=== PATIENT | female | born 1935 | race Caucasian/White ===

== ENCOUNTER 2017-02-15 12:56 | Emergency (ER) | payer MEDICARE, OTHER ==
[2017-02-15 12:56] VITALS: BMI 21.9
[2017-02-15 13:10] VITALS: TEMP 97.6
[2017-02-15] MEDS ORDERED: Sodium Chloride 0.9% 500 ML IV ONE ×2 (13:20→14:24)
[2017-02-15 14:18] LABS: BASO % 0.7 % (0.0-2.0); EOS # 0.1 K/uL (0.0-0.7); EOS % 1.8 % (0.0-4.0); LYMPH # 1.4 K/uL (1.0-4.3); LYMPH % 23.8 % (20.0-40.0); MEAN CELL VOLUME 81.1 fL (81.0-99.0); MEAN CORPUSCULAR HEMOGLOBIN 25.5 pg (27.0-31.0); MEAN CORPUSCULAR HGB CONC 31.5 g/dL (33.0-37.0); MEAN PLATELET VOLUME 9.5 fL (7.2-11.7); MONO # 0.4 K/uL (0.0-0.8); MONO % 7.3 % (0.0-10.0); NRBC % 0.1 % (0.0-2.0); RED CELL DISTRIBUTION WIDTH 13.5 % (11.5-14.5); WHITE BLOOD COUNT 5.8 K/uL (4.8-10.8)
[2017-02-15 14:18] LABS: RBC URINE 14 /hpf (0-3); URINE BACTERIA OCC (<OCC); URINE BILIRUBIN NEGATIVE (NEGATIVE); URINE BLOOD 2+ (NEGATIVE); URINE COLOR Yellow (YELLOW); URINE GLUCOSE (UA) 3+ mg/dL (Normal); URINE KETONE NEGATIVE (NEGATIVE); URINE LEUKOCYTE ESTERASE 1+ Leu/uL (Negative); URINE PROTEIN NEGATIVE (NEGATIVE); URINE UROBILINOGEN NORMAL mg/dL (0.2-1.0); WBC URINE 16 /hpf (0-5)
[2017-02-15 14:35] LABS: CHLORIDE 99 mmol/L (98-107)
[2017-02-15 14:36] LABS: POTASSIUM 3.9 mmol/L (3.6-5.2); SODIUM 140 mmol/L (132-148)
[2017-02-15 14:38] LABS: ALB/GLOB RATIO 1.4 (1.0-2.1); ALKALINE PHOSPHATASE 61 U/L (38-126); AST/SGOT 25 U/L (14-36); BILIRUBIN,TOTAL 0.4 mg/dL (0.2-1.3); BLOOD UREA NITROGEN 15 mg/dL (7-17); CARBON DIOXIDE 25 mmol/L (22-30); GFR AFRICAN-AMERICAN > 60; TOTAL PROTEIN 7.7 g/dL (6.3-8.3)
[2017-02-15 14:39] LABS: ALT/SGPT 22 U/L (9-52); CALCIUM 9.2 mg/dl (8.6-10.4); GLUCOSE,RANDOM 221 mg/dL (65-105); MAGNESIUM 2.1 mg/dL (1.6-2.3)
[2017-02-15] MEDS ORDERED: Tmp-Smz 800 mg-160 mg DS Tab PO STA (15:17)
[2017-02-15 15:20] VITALS: BP 161/60; PULSE 72; RESP 13
[2017-02-15 15:21] VITALS: O2SAT 99
--- NOTE | 2017-02-15 15:21 | C.PDOC ---
History Of Present Illness Pt and family state that she has been feeling a little malaised for the past 3 days. They state that she usually feels like this when she gets a urine infection. Time Seen by Provider: 02/15/17 13:08 Chief Complaint (Nursing): Medical Clearance History Per: Patient, Family Onset/Duration Of Symptoms: Days (3) Current Symptoms Are (Timing): Still Present Severity: Moderate Additional History Per: Prior Records Past Medical History Reviewed: Historical Data, Nursing Documentation, Vital Signs Vital Signs: Last Vital Signs Temp 97.6 F 02/15/17 13:09 Pulse 72 02/15/17 15:19 Resp 13 02/15/17 15:19 BP 161/60 H 02/15/17 15:19 Pulse Ox 99 02/15/17 15:23 - Medical History PMH: Alzheimer's Disease, Arthritis, CAD, COPD, CVA (affecting left side of body ), Dementia, Depression, Diabetes, HTN, Hypercholesterolemia, Hyperlipidemia, Mitral Valve Prolapse Surgical History: Coronary Stent (x3) Comment Only: Pacemaker (.) - [facility] Procedures CENTRAL VENOUS CATHETER PLACEMENT WITH GUIDANCE (07/16/15) CORONAR ARTERIOGR-2 CATH (05/30/14) ESOPHAGOGASTRODUODENOSCOPY [EGD] W/CLOSED BIOPSY (03/28/13) LEFT HEART CARDIAC CATH (05/30/14) LT HEART ANGIOCARDIOGRAM (05/30/14) Family History: States: Unknown Family Hx - Social History Hx Tobacco Use: No Hx Alcohol Use: No Hx Substance Use: No - Immunization History Hx Tetanus Toxoid Vaccination: No Hx Influenza Vaccination: No Hx Pneumococcal Vaccination: No Review Of Systems Except As Marked, All Systems Reviewed And Found Negative. Constitutional: Positive for: Malaise. Negative for: Fever, Chills Cardiovascular: Negative for: Chest Pain Respiratory: Negative for: Shortness of Breath, Hemoptysis Gastrointestinal: Positive for: Abdominal Pain (suprapubic). Negative for: Vomiting, Diarrhea Genitourinary: Positive for: Dysuria Musculoskeletal: Negative for: Neck Pain, Back Pain Skin: Negative for: Rash Neurological: Negative for: Weakness (no new weakness), Numbness (no new numbness), Seizures, Altered Mental Status, Headache Physical Exam - Physical Exam Appears: No Acute Distress, Chronically Ill Skin: Normal Color, Warm, Dry Head: Atraumatic Eye(s): bilateral: PERRL Oral Mucosa: Moist Neck: Normal ROM, Supple Cardiovascular: Rhythm Regular Respiratory: Normal Breath Sounds, No Accessory Muscle Use Gastrointestinal/Abdominal: Soft, Tenderness (mild suprapubic), No Guarding, No Rebound Back: No CVA Tenderness Extremity: Other (Contracted on left side) Neurological/Psych: No Normal Motor (weak/contracted on left side due to old CVA ), Other (Awake and alert) ED Course And Treatment - Laboratory Results Result Diagrams: 02/15/17 14:12 02/15/17 14:12 Interpretation Of Abnormal: Probable UTI. Urine C&S sent. ECG: Interpreted By Me, Viewed By Me ECG Rhythm: Sinus Rhythm, Nonspecific Changes ECG Interpretation: No Changes From Prior Rate From EC O2 Sat by Pulse Oximetry: 99 Pulse Ox Interpretation: Normal - Radiology CXR: Interpreted by Me, Viewed By Me CXR Interpretation: Yes: No Acute Disease Progress Note: Pt and family feel comfortable going home. Reassessment Condition: Improved Progress - Interventions Interventions:: Observation, Intravenous fluid - Medications Administered Oral: Other (Abx) - Data Reviewed Data Reviewed: Lab, Diagnostic imaging, EKG, Old records - Patient Status Patient status: Mostly improved - Continuity of Care Discussed patient case with:: Patient, Family-HIPPA compliant, ED Nurse - Patient Plan Patient Plan: Discharge, F/U with PCP, Continue present meds Medical Decision Making Medical Decision Making: Pt's previous positive urine culture is sensitive to Bactrim. Disposition Counseled Patient/Family Regarding: Studies Performed, Diagnosis, Need For Followup, Rx Given - Disposition Disposition: HOME/ ROUTINE Disposition Time: 15:25 Condition: STABLE Additional Instructions: Drink plenty of fluids. Follow up with your doctor this week. Return to the ER if you develop fever, chills, vomiting, worsening of symptoms or if you have any other concerns. Prescriptions: Sulfamethoxazole/Trimethoprim [Bactrim DS 800 mg-160 mg] 1 tab PO BID #14 tab Instructions: Urinary Tract Infection in Women (ED) - Clinical Impression Clinical Impression: UTI (lower urinary tract infection)
[2017-02-15] MEDS ORDERED: Tmp-Smz 800 mg-160 mg DS Tab ONE (15:22)
--- NOTE | 2017-02-15 15:58 | RAD ---
PROCEDURE: CHEST RADIOGRAPH, 1 VIEW HISTORY: Dizzy COMPARISON: 08/19/2015 FINDINGS: LUNGS: No focal infiltrate or effusion. Chronic interstitial lung markings. Bilateral hilar prominence. Upper lobe granulomatous changes. Nodular density at the left lung base may represent prominent nipple shadow. Correlation with nipple marker may be helpful. PLEURA: No pneumothorax or pleural fluid seen. CARDIOVASCULAR: Calcification at the aortic knob. OSSEOUS STRUCTURES: No significant abnormalities. VISUALIZED UPPER ABDOMEN: Normal. OTHER FINDINGS: None. IMPRESSION: No focal infiltrate or effusion. Chronic interstitial lung markings. Bilateral hilar prominence. Upper lobe granulomatous changes. Nodular density at the left lung base may represent prominent nipple shadow. Correlation with nipple marker may be helpful.
--- NOTE | 2017-02-16 18:44 | CARD ---
APPROVED REPORT EKG Measurement Heart [id number] NM [id number] <Conclusion> Normal sinus rhythm ST & T wave abnormality, consider lateral ischemia/ LVH Abnormal ECG
== END 2017-02-15 15:59 | disposition home or self-care (01) ==
LOC: C.ER 12:56
DX: N39.0 Urinary tract infection, site not specified (principal); B96.20 Unspecified Escherichia coli [E. coli] as the cause of diseases classified elsewhere
CPT/HCPCS: 71010; 80053; 81001; 83735; 83880; 84484; 85025; 87086; 87181; 93005; 96360; 99285; J7040

== ENCOUNTER 2017-03-09 00:17 | Emergency (ER) | payer MEDICARE, OTHER ==
--- NOTE | 2017-03-09 00:23 | C.PDOC ---
History Of Present Illness A 81 year old female with a hx of Alzheimer, was brought in by her daughter c/o worsening confusion that has been occurring for the last couple of day. Daughter notes the patient was recently admitted for UTI and had experienced similar symptoms. Daughter reports abnormal smelling urine but denies vomiting, trauma, LOC, fever, drug use, or any other complaints. Time Seen by Provider: 03/09/17 00:22 History Per: Family (Daughter) History/Exam Limitations: Clinical Condition (Confusion) Onset/Duration Of Symptoms: Days Current Symptoms Are (Timing): Still Present Usual Baseline: Alert Confused Exacerbating Factor(s): denies: Fever, Trauma Severity: Mild Recent travel outside of the [place]: No Past Medical History Reviewed: Historical Data, Nursing Documentation, Vital Signs Vital Signs: Last Vital Signs Temp 98.1 F 03/09/17 00:46 Pulse 80 03/09/17 00:46 Resp 16 03/09/17 00:46 BP 171/76 H 03/09/17 00:46 Pulse Ox 98 03/09/17 02:51 - Medical History PMH: Alzheimer's Disease, Arthritis, CAD, COPD, CVA (affecting left side of body ), Dementia, Depression, Diabetes, HTN, Hypercholesterolemia, Hyperlipidemia, Mitral Valve Prolapse Denies: Chronic Kidney Disease Surgical History: Coronary Stent (x3) Comment Only: Pacemaker (.) - [facility] Procedures CENTRAL VENOUS CATHETER PLACEMENT WITH GUIDANCE (07/16/15) CORONAR ARTERIOGR-2 CATH (05/30/14) ESOPHAGOGASTRODUODENOSCOPY [EGD] W/CLOSED BIOPSY (03/28/13) LEFT HEART CARDIAC CATH (05/30/14) LT HEART ANGIOCARDIOGRAM (05/30/14) Family History: States: No Known Family Hx - Social History Hx Tobacco Use: No Hx Alcohol Use: No Hx Substance Use: No - Immunization History Hx Tetanus Toxoid Vaccination: No Hx Influenza Vaccination: No Hx Pneumococcal Vaccination: No Review Of Systems Review Of Systems: ROS cannot be obtained secondary to pt's inabilty to answer questions. (Due to confusion) Genitourinary: Positive for: Other (Abnormal smelling urine) Neurological: Positive for: Confusion Physical Exam - Physical Exam Appears: Non-toxic, No Acute Distress, Confused Skin: Warm, Dry Head: Normacephalic Eye(s): bilateral: Normal Inspection Oral Mucosa: Moist Neck: Supple Chest: Symmetrical Cardiovascular: Rhythm Regular Respiratory: No Rales, No Rhonchi, No Wheezing Gastrointestinal/Abdominal: Soft, No Tenderness, No Distention Back: Normal Inspection Extremity: Normal ROM Extremity: Bilateral: Atraumatic, Normal Color And Temperature, Normal ROM Neurological/Psych: No Oriented x3 (Oriented to place), No Other (No focal deficit) Gait: Unable To Assess ED Course And Treatment - Laboratory Results Result Diagrams: 03/09/17 01:22 03/09/17 01:22 O2 Sat by Pulse Oximetry: 98 (Room air) Pulse Ox Interpretation: Normal Progress Note: blood work, ua, ivf Reevaluation Time: 05:36 Reassessment Condition: Improved Disposition Counseled Patient/Family Regarding: Studies Performed, Diagnosis, Need For Followup - Disposition Referrals: Clint Silverman MD [Staff Provider] - Disposition: HOME/ ROUTINE Disposition Time: 00:22 Condition: FAIR Instructions: Dementia (GEN) - Clinical Impression Clinical Impression: Alzheimers disease - Scribe Statement The provider has reviewed the documentation as recorded by the Scribe Jeff vargas All medical record entries made by the Scribe were at my direction and personally dictated by me. I have reviewed the chart and agree that the record accurately reflects my personal performance of the history, physical exam, medical decision making, and the department course for this patient. I have also personally directed, reviewed, and agree with the discharge instructions and disposition.
[2017-03-09 00:27] VITALS: BMI 25.7
[2017-03-09] MEDS ORDERED: Sodium Chloride 0.9% 1,000 ML IV SCH (00:30)
[2017-03-09 00:51] VITALS: RESP 16; O2SAT 98
[2017-03-09 01:31] LABS: BASO % 0.3 % (0.0-2.0); EOS # 0.1 K/uL (0.0-0.7); EOS % 1.1 % (0.0-4.0); HEMATOCRIT 38.9 % (34.0-47.0); LYMPH # 1.6 K/uL (1.0-4.3); LYMPH % 24.6 % (20.0-40.0); MEAN CELL VOLUME 80.1 fL (81.0-99.0); MEAN CORPUSCULAR HEMOGLOBIN 25.9 pg (27.0-31.0); MEAN CORPUSCULAR HGB CONC 32.3 g/dL (33.0-37.0); MEAN PLATELET VOLUME 9.6 fL (7.2-11.7); MONO # 0.5 K/uL (0.0-0.8); MONO % 8.2 % (0.0-10.0); RED CELL DISTRIBUTION WIDTH 13.9 % (11.5-14.5); WHITE BLOOD COUNT 6.4 K/uL (4.8-10.8)
[2017-03-09 01:34] LABS: INR 1.1
[2017-03-09 01:46] LABS: ALB/GLOB RATIO 1.4 (1.0-2.1); ALKALINE PHOSPHATASE 73 U/L (38-126); ALT/SGPT 13 U/L (9-52); AST/SGOT 13 U/L (14-36); BILIRUBIN,TOTAL 0.6 mg/dL (0.2-1.3); BLOOD UREA NITROGEN 17 mg/dL (7-17); CALCIUM 8.9 mg/dl (8.6-10.4); CARBON DIOXIDE 24 mmol/L (22-30); CHLORIDE 102 mmol/L (98-107); GFR AFRICAN-AMERICAN > 60; GLUCOSE,RANDOM 241 mg/dL (65-105); POTASSIUM 3.7 mmol/L (3.6-5.2); SODIUM 142 mmol/L (132-148); TOTAL PROTEIN 7.6 g/dL (6.3-8.3)
[2017-03-09 02:10] LABS: RBC URINE 1 /hpf (0-3); URINE BILIRUBIN NEGATIVE (NEGATIVE); URINE BLOOD NEGATIVE (NEGATIVE); URINE COLOR Straw (YELLOW); URINE GLUCOSE (UA) 3+ mg/dL (Normal); URINE KETONE NEGATIVE (NEGATIVE); URINE LEUKOCYTE ESTERASE NEG Leu/uL (Negative); URINE PROTEIN NEGATIVE (NEGATIVE); URINE UROBILINOGEN NORMAL mg/dL (0.2-1.0); WBC URINE 1 /hpf (0-5)
[2017-03-09 02:14] LABS: VENOUS BLOOD GAS PCO2 44 mmHg (40-60)
--- NOTE | 2017-03-09 03:32 | CT ---
EXAM: CT Head Without Intravenous Contrast CLINICAL HISTORY: 81 years old, female; Signs and symptoms; Altered mental status/memory loss; Confusion or disorientation; Additional info: Change ms TECHNIQUE: Axial computed tomography images of the head/brain without intravenous contrast. This CT exam was performed using one or more of the following dose reduction techniques: automated exposure control, adjustment of the mA and/or kV according to patient size, and/or use of iterative reconstruction technique. COMPARISON: CT - HEAD W/O CONTRAST 12/16/2015 8:32:26 PM FINDINGS: Brain: [id number] atrophy. No intracranial hemorrhage. No mass. Several scattered foci of decreased attenuation within periventricular/subcortical white matter. Chronic lacunar infarcts within basal ganglia. Probable chronic lacunar infarct within coty. No definite edema. Ventricles: No hydrocephalus. Bones/joints: No acute fracture. Soft tissues: Unremarkable. Vasculature: Atherosclerotic disease of intracranial arteries. Sinuses: No acute sinusitis. Mastoid air cells: No mastoid effusion. Orbits: Unremarkable as visualized. IMPRESSION: 1. Nonspecific white matter changes. Acute infarction may be CT occult within first 24 hours. If a focal deficit persists, consider followup CT or MRI for further evaluation. 2. Incidental/non-acute findings are described above.
[2017-03-09 05:57] VITALS: BP 141/87; PULSE 79; TEMP 98.4
--- NOTE | 2017-03-09 09:04 | RAD ---
PROCEDURE: CHEST RADIOGRAPH, 1 VIEW HISTORY: Shortness of breath COMPARISON: 02/15/2017 FINDINGS: LUNGS: Biapical pleural thickening with upper lobe granulomatous changes. Patchy left basilar airspace opacity with trace left pleural effusion. PLEURA: As above. CARDIOVASCULAR: Calcification at the aortic knob. Heart size within normal limits. OSSEOUS STRUCTURES: Overlying hand limits evaluation of the left proximal humerus. VISUALIZED UPPER ABDOMEN: Normal. OTHER FINDINGS: None. IMPRESSION: Biapical pleural thickening with upper lobe granulomatous changes. Patchy left basilar airspace opacity with trace left pleural effusion.
== END 2017-03-09 05:56 | disposition home or self-care (01) ==
LOC: C.ER 00:17
DX: G30.9 Alzheimer's disease, unspecified (principal); F02.80 Dementia in other diseases classified elsewhere, unspecified severity, without behavioral disturbance, psychotic disturbance, mood disturbance, and anxiety

== ENCOUNTER 2018-02-11 10:23 | Observation (INO) | payer MEDICARE, OTHER ==
[2018-02-11 10:23] VITALS: BMI 25.7
[2018-02-11 10:34] VITALS: RESP 20
--- NOTE | 2018-02-11 11:17 | C.PDOC ---
History Of Present Illness 82 y/o F c PMHx HTN, HLD, DM, CVA with L sided deficit, cardiac stent p/w hypoglycemia this morning. Patient was noted by homemaker to be tremulous, cold , and drowsy. Fingerstick was found to be 30s, patient was given banana and peanut butter and symptoms resolved. Patient was given her normal DM medication (insulin last night) and had a snack afterwards. Family is unsure why she became hypoglycemic. They deny any recent fever, cough, dysuria, vomiting. Time Seen by Provider: 02/11/18 10:49 Chief Complaint (Nursing): Altered Mental Status Past Medical History Vital Signs: Last Vital Signs Temp 97.4 F L 02/11/18 10:33 Pulse 88 02/11/18 10:33 Resp 20 02/11/18 10:33 BP 194/78 H 02/11/18 10:33 Pulse Ox 96 02/11/18 11:46 - Medical History PMH: Alzheimer's Disease, Arthritis, CAD, COPD, CVA (affecting left side of body ), Dementia, Depression, Diabetes, HTN, Hypercholesterolemia, Hyperlipidemia, Mitral Valve Prolapse Denies: Chronic Kidney Disease Surgical History: Coronary Stent (x3) Comment Only: Pacemaker (.) - [facility] Procedures CENTRAL VENOUS CATHETER PLACEMENT WITH GUIDANCE (07/16/15) CORONAR ARTERIOGR-2 CATH (05/30/14) ESOPHAGOGASTRODUODENOSCOPY [EGD] W/CLOSED BIOPSY (03/28/13) LEFT HEART CARDIAC CATH (05/30/14) LT HEART ANGIOCARDIOGRAM (05/30/14) Family History: States: Unknown Family Hx - Social History Hx Tobacco Use: No Hx Alcohol Use: No Hx Substance Use: No - Immunization History Hx Tetanus Toxoid Vaccination: No Hx Influenza Vaccination: No Hx Pneumococcal Vaccination: No Review Of Systems Except As Marked, All Systems Reviewed And Found Negative. Constitutional: Negative for: Fever Cardiovascular: Negative for: Chest Pain Physical Exam - Physical Exam Additional Physical Exam Comments: Gen: NAD Head: NC Eyes: PERRL ENT: MMM Neck: Supple Chest: No tenderness CV: Regular rate Lungs: CTA b/l Abd: Soft, NT Back: No CVA tenderness Skin: No rash Extremities: L arm contracture Neuro: Alert, oriented x 2, L sided paralysis ED Course And Treatment - Laboratory Results Result Diagrams: 02/11/18 11:21 02/11/18 11:21 O2 Sat by Pulse Oximetry: 96 Medical Decision Making Medical Decision Making: EKG NSR 80 bpm, no ST elevations, lateral T wave inversions, unchanged from previous CXR no acute disease. Patient with unexplained hypoglycemia, will keep for observation. Dr. Mckeon accepts to Medical service. Disposition Discussed With : Edgar Mckeon - Disposition Disposition: HOSPITALIZED Disposition Time: 12:11 Condition: FAIR Forms: [facility] (Belarusian) - Clinical Impression Clinical Impression: Hypoglycemia
[2018-02-11 11:26] LABS: BASO % 0.5 % (0.0-2.0); EOS % 0.7 % (0.0-4.0); HEMOGLOBIN 12.9 g/dL (11.0-16.0); LYMPH # 1.1 K/uL (1.0-4.3); LYMPH % 19.6 % (20.0-40.0); MEAN CELL VOLUME 81.1 fL (81.0-99.0); MEAN CORPUSCULAR HEMOGLOBIN 26.9 pg (27.0-31.0); MEAN CORPUSCULAR HGB CONC 33.1 g/dL (33.0-37.0); MEAN PLATELET VOLUME 9.3 fL (7.2-11.7); MONO # 0.3 K/uL (0.0-0.8); MONO % 5.5 % (0.0-10.0); NEUT # 4.3 K/uL (1.8-7.0); NEUT % 73.7 % (50.0-75.0); NRBC % 0.1 % (0.0-2.0); RBC 4.82 Mil/uL (3.80-5.20); RED CELL DISTRIBUTION WIDTH 14.1 % (11.5-14.5); WHITE BLOOD COUNT 5.8 K/uL (4.8-10.8)
[2018-02-11 11:36] LABS: PROTHROMBIN TIME 11.9 SECONDS (9.7-12.2)
[2018-02-11 11:43] LABS: ALB/GLOB RATIO 1.2 (1.0-2.1); ALBUMIN 4.4 g/dL (3.5-5.0); ALT/SGPT 14 U/L (9-52); AST/SGOT 27 U/L (14-36); BLOOD UREA NITROGEN 19 mg/dL (7-17); CALCIUM 9.3 mg/dl (8.6-10.4); GFR AFRICAN-AMERICAN > 60; GFR NON-AFRICAN AMERICAN > 60
[2018-02-11 12:07] LABS: URINE BACTERIA OCC (<OCC); URINE BILIRUBIN NEGATIVE (NEGATIVE); URINE BLOOD NEGATIVE (NEGATIVE); URINE CLARITY Hazy (Clear); URINE COLOR Yellow (YELLOW); URINE GLUCOSE (UA) 2+ mg/dL (Normal); URINE LEUKOCYTE ESTERASE TRACE Leu/uL (Negative); URINE PROTEIN 1+ mg/dL (NEGATIVE); URINE UROBILINOGEN NORMAL mg/dL (0.2-1.0)
--- NOTE | 2018-02-11 13:45 | RAD ---
HISTORY: Hypoglycemia COMPARISON: 03/09/2017. FINDINGS: LUNGS: The lungs are well inflated and clear. PLEURA: No significant pleural effusion identified, no pneumothorax apparent. CARDIOVASCULAR: The heart is normal in size. Atherosclerotic aortic arch calcifications are present. OSSEOUS STRUCTURES: Within normal limits for the patient's age. VISUALIZED UPPER ABDOMEN: Normal. OTHER FINDINGS: None. IMPRESSION: No active pulmonary disease.
--- NOTE | 2018-02-11 18:00 | CP.PCM.HP ---
Present on Admission - Present on Admission Any Indicators Present on Admission: No Past Patient History - Infectious Disease Hx of Infectious Diseases: None - Tetanus Immunizations Tetanus Immunization: Unknown - Past Medical History & Family History Past Medical History?: Yes - Past Social History Smoking Status: Never Smoked - CARDIAC Hx Cardiac Disorders: Yes Hx Hypercholesterolemia: Yes Hx Hypertension: Yes Hx Mitral Valve Prolapse: Yes Hx Pacemaker: (.) - PULMONARY Hx Chronic Obstructive Pulmonary Disease (COPD): Yes - NEUROLOGICAL Hx Alzheimer's Disease: Yes Hx Dementia: Yes - HEENT Hx HEENT Problems: No - RENAL Hx Chronic Kidney Disease: No - ENDOCRINE/METABOLIC Hx Diabetes Mellitus Type 2: Yes - HEMATOLOGICAL/ONCOLOGICAL Hx Blood Disorders: No - INTEGUMENTARY Hx Dermatological Problems: No - MUSCULOSKELETAL/RHEUMATOLOGICAL Hx Arthritis: Yes Hx Falls: Yes - GASTROINTESTINAL Hx Gastrointestinal Disorders: Yes Hx Gastroesophageal Reflux: Yes - GENITOURINARY/GYNECOLOGICAL Hx Genitourinary Disorders: Yes Hx Urinary Tract Infection: Yes - PSYCHIATRIC Hx Depression: Yes Hx Substance Use: No - SURGICAL HISTORY Hx Coronary Stent: Yes (x3) - ANESTHESIA Hx Anesthesia: Yes Hx Anesthesia Reactions: No Hx Malignant Hyperthermia: No Meds Allergies/Adverse Reactions: Allergies Allergy/AdvReac Type Severity Reaction Status Date / Time iodine Allergy RASH Verified 02/11/18 10:39 seafood Allergy Uncoded 02/11/18 10:39 Results - Vital Signs Recent Vital Signs: Last Vital Signs Temp 98.9 F 02/11/18 15:52 Pulse 64 02/11/18 15:52 Resp 20 02/11/18 15:52 BP 133/76 02/11/18 15:52 Pulse Ox 97 02/11/18 15:52 - Labs Result Diagrams: 02/11/18 11:21 02/11/18 11:21 Labs: Laboratory Results - last 24 hr 02/11/18 02/11/18 02/11/18 10:30 11:21 11:21 WBC 5.8 RBC 4.82 Hgb 12.9 Hct 39.1 MCV 81.1 MCH 26.9 L MCHC 33.1 RDW 14.1 Plt Count 248 MPV 9.3 Neut % (Auto) 73.7 Lymph % (Auto) 19.6 L [place] % (Auto) 5.5 Eos % (Auto) 0.7 Baso % (Auto) 0.5 Neut # (Auto) 4.3 Lymph # (Auto) 1.1 [place] # (Auto) 0.3 Eos # (Auto) 0.0 Baso # (Auto) 0.0 PT 11.9 INR 1.0 APTT 27 Sodium Potassium Chloride Carbon Dioxide Anion Gap BUN Creatinine Est GFR ( Amer) Est GFR (Non-Af Amer) POC Glucose (mg/dL) 160 H Random Glucose Calcium Total Bilirubin AST ALT Alkaline Phosphatase Troponin I Total Protein Albumin Globulin Albumin/Globulin Ratio Urine Color Urine Clarity Urine pH Ur Specific [place] Urine Protein Urine Glucose (UA) Urine Ketones Urine Blood Urine Nitrate Urine Bilirubin Urine Urobilinogen Ur Leukocyte Esterase Urine WBC (Auto) Urine RBC (Auto) Urine Bacteria 02/11/18 02/11/18 02/11/18 11:21 11:51 16:39 WBC RBC Hgb Hct MCV MCH MCHC RDW Plt Count MPV Neut % (Auto) Lymph % (Auto) [place] % (Auto) Eos % (Auto) Baso % (Auto) Neut # (Auto) Lymph # (Auto) [place] # (Auto) Eos # (Auto) Baso # (Auto) PT INR APTT Sodium 144 Potassium 4.4 Chloride 104 Carbon Dioxide 24 Anion Gap 20 BUN 19 H Creatinine 0.5 L Est GFR ( Amer) > 60 Est GFR (Non-Af Amer) > 60 POC Glucose (mg/dL) 203 H Random Glucose 196 H Calcium 9.3 Total Bilirubin 0.6 AST 27 ALT 14 Alkaline Phosphatase 64 Troponin I < 0.0120 Total Protein 8.0 Albumin 4.4 Globulin 3.6 Albumin/Globulin Ratio 1.2 Urine Color Yellow Urine Clarity Hazy Urine pH 6.0 Ur Specific [place] 1.011 Urine Protein 1+ H Urine Glucose (UA) 2+ H Urine Ketones Negative Urine Blood Negative Urine Nitrate Negative Urine Bilirubin Negative Urine Urobilinogen Normal Ur Leukocyte Esterase Trace Urine WBC (Auto) 4 Urine RBC (Auto) < 1 Urine Bacteria Occ H Assessment & Plan (1) Hypoglycemia Status: Acute (2) Abdominal pain Status: Acute (3) Alzheimers disease Status: Acute (4) CVA, old, dysphagia Status: Acute (5) CVA, old, hemiparesis Status: Acute (6) Chest discomfort Status: Acute (7) Chest pain Status: Acute (8) Contusion of hip, left Status: Acute (9) Dementia Status: Acute (10) Elbow abrasion Status: Acute (11) Fall Status: Acute (12) Fall from wheelchair Status: Acute (13) Head injury Status: Acute (14) Hematoma and contusion Status: Acute (15) Ischemic stroke Status: Acute (16) Leg pain Status: Acute (17) Nausea Status: Acute (18) Prophylactic measure Status: Acute (19) Rib pain Status: Acute (20) Scalp hematoma Status: Acute (21) Swelling of left hand Status: Acute (22) TIA (transient ischemic attack) Status: Acute (23) Torticollis Status: Acute (24) Transient ischemic attack Status: Acute (25) UTI (lower urinary tract infection) Status: Acute (26) Uncontrolled diabetes mellitus Status: Acute (27) Vomiting Status: Acute (28) Weakness generalized Status: Acute (29) Weakness of left side of body Status: Acute (30) CAD (coronary artery disease) Status: Chronic (31) Diabetes mellitus Status: Chronic (32) Hyperlipemia Status: Chronic (33) Hypertension Status: Chronic - Assessment and Plan (Free Text) Plan: Hold antidiabetic med endo consult prn encourage po diet Fingerstick 4 times daily Diet Continue aspirin losartan rosuvastatin heparin subcu DVT GI prophylaxis Monitor the fingerstick
[2018-02-12] MEDS ORDERED: Metoprolol Succinate 100 mg XL Tab PO SCH (10:00)
--- NOTE | 2018-02-12 11:55 | CP.PCM.PN ---
Subjective - Date & Time of Evaluation Date of Evaluation: 02/12/18 Time of Evaluation: 11:50 - Subjective Subjective: PT SEEN AND IN NAD. PT STATES SHE FEEL FINE; DENIES CP, SOB, ABD PAIN, N/V. CLEARED FOR D/C HOME TODAY. I DISCUSSED THE D/C PLAN WITH PT'S DAUGHTER, LYLY YOUNG, AND SHE IS AWARE AND IN AGREEMENT WITH THE D/C PLAN. I CLARIFIED PT'S EVENING INSULIN WITH HER WELL; PT TAKE LEVEMIR 25 UNITS AT BEDTIME. I SPOKE WITH PT'S [facility]ULT [facility] ([employer]) AND THE RN CONFIRMED HER DAILY INSULIN REGIMEN (NOVOLOG WITH SLIDING SCALE). PER ADULT DAY CARE NURSE, PT'S DAUGHTER TAKES CARE OF THE PT AND MANAGES HER SUGAR WELL. THIS IS THE FIRST HYPOGLYCEMIC EPISODE PER HER. NO NEW RX GIVEN TODAY FOR D/C. BEDTIME SNACK RECOMMENDED Q HS. NO FURTHER ORDERS. SW TO ARRANGE TRANSPORTATION HOME THIS AFTERNOON. SEE BELOW FOR D/C PLAN: - SEGUIMIENTO CON HADDAD DOCTOR PRIMARIO, DR. CANTU, EN LA OFICINA DENTRO DE 5- 7 [address] DE [place] --- LLAME A LA OFICINA PARA HACER HADDAD APTO. -CONTINUE LOS MEDICAMENTOS DE HADDAD CASA SUSAN HABITUALMENTE. RECUERDA, SI TE EST DANDO INSULINA, NECESITAS COMER. -Tiene un aperitivo antes de haddad INSULINA "LEVEMIR". -NO HAY NUEVAS RECETAS DADAS HOY. -CONTINUE LOS SERVICIOS DE HOMEMAKER Y EL CUIDADO DE LOS ADULTOS SUSAN DIVERTIDO. -PARA MS PREGUNTAS DE HADDAD HOSPITALIZACIN, CONTACTE CON EL DR. MARY HAYES. -FOLLOW UP WITH YOUR PRIMARY DOCTOR, DR. CANTU, IN THE OFFICE WITHIN 5-7 DAYS OF DISCHARGE---CALL THE OFFICE TO MAKE YOUR APPT. -CONTINUE YOUR HOME MEDICATIONS USUAL. REMEMBER, IF YOU ARE BEING GIVE INSULIN, YOU NEED TO EAT. -HAVE A BEDTIME SNACK PRIOR TO YOUR "LEVEMIR" INSULIN. -NO NEW PRESCRIPTIONS GIVEN TODAY. -CONTINUE HOMEMAKER SERVICES AND ADULT DAY CARE USUAL. -FOR FURTHER QUESTIONS OF YOUR HOSPITALIZATION, CONTACT DR. Rick COATES'S OFFICE. Objective - Vital Signs/Intake and Output Vital Signs (last 24 hours): Temp Pulse Resp BP Pulse Ox 97.8 F 66 20 121/62 97 02/12/18 07:44 02/12/18 07:44 02/12/18 07:44 02/12/18 07:44 02/12/18 07:44 Intake and Output: 02/12/18 02/12/18 06:59 18:59 Intake Total 150 Balance 150 - Medications Medications: Current Medications Amlodipine Besylate (Norvasc) 10 mg PO DAILY [facility] Last Admin: 02/12/18 11:34 Dose: 10 mg Aspirin (Aspirin Chewable) 81 mg PO DAILY [facility] Last Admin: 02/12/18 11:34 Dose: 81 mg Clopidogrel Bisulfate (Plavix) 75 mg PO DAILY [facility] Last Admin: 02/12/18 11:34 Dose: 75 mg Docusate Sodium (Colace) 100 mg PO BID [facility] Last Admin: 02/12/18 11:34 Dose: 100 mg Famotidine (Pepcid) 20 mg PO BID [facility] Last Admin: 02/12/18 11:34 Dose: 20 mg Heparin Sodium (Porcine) (Heparin) 5,000 units SC Q12 [facility] Last Admin: 02/12/18 11:34 Dose: 5,000 units Losartan Potassium (Cozaar) 100 mg PO DAILY [facility] Last Admin: 02/12/18 11:34 Dose: 100 mg Metoprolol Succinate (Toprol Xl) 100 mg PO QAM [facility] Last Admin: 02/12/18 11:34 Dose: 100 mg Rosuvastatin Calcium (Crestor) 10 mg PO QPM [facility] Last Admin: 02/11/18 17:39 Dose: 10 mg Zolpidem Tartrate (Ambien) 10 mg PO HS PRN PRN Reason: Insomnia - Labs Labs: 02/11/18 11:21 02/11/18 11:21 PT 11.9 SECONDS (9.7-12.2) 02/11/18 11:21 INR 1.0 02/11/18 11:21 APTT 27 SECONDS (21-34) 02/11/18 11:21
[2018-02-12 15:48] VITALS: BP 169/76; PULSE 64; TEMP 98.4; O2SAT 96
--- NOTE | 2018-02-12 17:11 | CP.PCM.PN ---
Subjective - Date & Time of Evaluation Date of Evaluation: 02/12/18 Time of Evaluation: 08:40 - Subjective Subjective: clinically same Objective - Vital Signs/Intake and Output Vital Signs (last 24 hours): Temp Pulse Resp BP Pulse Ox 98.4 F 64 20 169/76 H 96 02/12/18 15:00 02/12/18 15:00 02/12/18 15:00 02/12/18 15:00 02/12/18 15:00 Intake and Output: 02/12/18 02/12/18 06:59 18:59 Intake Total 150 Balance 150 - Medications Medications: Current Medications Amlodipine Besylate (Norvasc) 10 mg PO DAILY [facility] Last Admin: 02/12/18 11:34 Dose: 10 mg Aspirin (Aspirin Chewable) 81 mg PO DAILY [facility] Last Admin: 02/12/18 11:34 Dose: 81 mg Clopidogrel Bisulfate (Plavix) 75 mg PO DAILY [facility] Last Admin: 02/12/18 11:34 Dose: 75 mg Docusate Sodium (Colace) 100 mg PO BID [facility] Last Admin: 02/12/18 11:34 Dose: 100 mg Famotidine (Pepcid) 20 mg PO BID [facility] Last Admin: 02/12/18 11:34 Dose: 20 mg Heparin Sodium (Porcine) (Heparin) 5,000 units SC Q12 [facility] Last Admin: 02/12/18 11:34 Dose: 5,000 units Losartan Potassium (Cozaar) 100 mg PO DAILY [facility] Last Admin: 02/12/18 11:34 Dose: 100 mg Metoprolol Succinate (Toprol Xl) 100 mg PO QAM [facility] Last Admin: 02/12/18 11:34 Dose: 100 mg Rosuvastatin Calcium (Crestor) 10 mg PO QPM [facility] Last Admin: 02/11/18 17:39 Dose: 10 mg Zolpidem Tartrate (Ambien) 10 mg PO HS PRN PRN Reason: Insomnia - Labs Labs: 02/11/18 11:21 02/11/18 11:21 PT 11.9 SECONDS (9.7-12.2) 02/11/18 11:21 INR 1.0 02/11/18 11:21 APTT 27 SECONDS (21-34) 02/11/18 11:21 - Constitutional Appears: Well - Head Exam Head Exam: ATRAUMATIC, NORMAL INSPECTION, NORMOCEPHALIC - Eye Exam Eye Exam: EOMI, Normal appearance, PERRL Pupil Exam: NORMAL ACCOMODATION, PERRL - ENT Exam ENT Exam: Mucous Membranes Moist, Normal Exam - Neck Exam Neck Exam: Full ROM, Normal Inspection. absent: Lymphadenopathy - Respiratory Exam Respiratory Exam: Decreased Breath Sounds - Cardiovascular Exam Cardiovascular Exam: REGULAR RHYTHM, +S1, +S2 - GI/Abdominal Exam GI & Abdominal Exam: Soft, Diminished Bowel Sounds - Rectal Exam Rectal Exam: Deferred Assessment and Plan (1) Hypoglycemia Status: Acute (2) Abdominal pain Status: Acute (3) Alzheimers disease Status: Acute (4) CVA, old, dysphagia Status: Acute (5) CVA, old, hemiparesis Status: Acute (6) Chest discomfort Status: Acute (7) Chest pain Status: Acute (8) Contusion of hip, left Status: Acute (9) Dementia Status: Acute (10) Elbow abrasion Status: Acute (11) Fall Status: Acute (12) Fall from wheelchair Status: Acute (13) Head injury Status: Acute (14) Hematoma and contusion Status: Acute (15) Ischemic stroke Status: Acute (16) Leg pain Status: Acute (17) Nausea Status: Acute (18) Prophylactic measure Status: Acute (19) Rib pain Status: Acute (20) Scalp hematoma Status: Acute (21) Swelling of left hand Status: Acute (22) TIA (transient ischemic attack) Status: Acute (23) Torticollis Status: Acute (24) Transient ischemic attack Status: Acute (25) UTI (lower urinary tract infection) Status: Acute (26) Uncontrolled diabetes mellitus Status: Acute (27) Vomiting Status: Acute (28) Weakness generalized Status: Acute (29) Weakness of left side of body Status: Acute (30) CAD (coronary artery disease) Status: Chronic (31) Diabetes mellitus Status: Chronic (32) Hyperlipemia Status: Chronic (33) Hypertension Status: Chronic
--- NOTE | 2018-02-12 22:36 | CARD ---
APPROVED REPORT EKG Measurement Heart [id number] <Conclusion> Normal sinus rhythm with sinus arrhythmia Moderate voltage criteria for LVH, may be normal variant ST & T wave abnormality, consider anterolateral ischemia Prolonged QT Abnormal ECG
== END 2018-02-12 17:44 | disposition home or self-care (01) ==
LOC: C.ER 10:23 → C.9E 12:09 → C.3T 13:30
PROVIDERS: ADMIT Internal Medicine Nephrology; ATTEND Internal Medicine Nephrology
DX: E11.649 Type 2 diabetes mellitus with hypoglycemia without coma (principal); I10 Essential (primary) hypertension; I69.359 Hemiplegia and hemiparesis following cerebral infarction affecting unspecified side; Z79.4 Long term (current) use of insulin; G30.9 Alzheimer's disease, unspecified; F02.80 Dementia in other diseases classified elsewhere, unspecified severity, without behavioral disturbance, psychotic disturbance, mood disturbance, and anxiety; M19.90 Unspecified osteoarthritis, unspecified site; J44.9 Chronic obstructive pulmonary disease, unspecified; F32.9 Major depressive disorder, single episode, unspecified; E78.00 Pure hypercholesterolemia, unspecified; I34.1 Nonrheumatic mitral (valve) prolapse; Z95.5 Presence of coronary angioplasty implant and graft; Z95.0 Presence of cardiac pacemaker; K21.9 Gastro-esophageal reflux disease without esophagitis; Z87.440 Personal history of urinary (tract) infections; Z91.013 Allergy to seafood; Z88.8 Allergy status to other drugs, medicaments and biological substances; I69.391 Dysphagia following cerebral infarction; R13.10 Dysphagia, unspecified; S70.02XA Contusion of left hip, initial encounter; S50.319A Abrasion of unspecified elbow, initial encounter; W05.0XXA Fall from non-moving wheelchair, initial encounter; M79.606 Pain in leg, unspecified; I25.10 Atherosclerotic heart disease of native coronary artery without angina pectoris; S00.03XA Contusion of scalp, initial encounter; R07.81 Pleurodynia; M79.89 Other specified soft tissue disorders; M43.6 Torticollis; N39.0 Urinary tract infection, site not specified; E11.65 Type 2 diabetes mellitus with hyperglycemia
CPT/HCPCS: 71045; 80053; 81001; 82948; 84484; 85025; 85610; 85730; 87086; 87181; 93005; 97162; 97166; 97530; 99285; G0378; G8978; G8979; G8987; G8988; J1644

== ENCOUNTER 2018-02-24 11:22 | Inpatient (IN) | payer MEDICARE, OTHER ==
[2018-02-24 11:22] VITALS: BMI 25.7
--- NOTE | 2018-02-24 12:09 | C.PDOC ---
History Of Present Illness Hx PER FAMILY PER FAMILY, PT CO ABD PAIN THIS MORNING, DAUGHTER STATES PATIENT DOES NOT HAVE A REGULAR HX OF ABDOMINAL COMPLAINTS. STATES SHE GAVE PATIENT ULTRAM THAT "SHE USED TO TAKE A LONG TIME AGO" PAIN RESOLVED, ABOUT AN HOUR OR TWO LATER, PT HAD ONSET OF CHEST PAIN AND DIAPHORESIS WHILE EATING BREAKFAST. NO LOC. PT IS CURRENTLY ASYMPTOMATIC AT BASELINE. PT HAS A HX OF MULTIPLE STENTS. S/P CATH 5 YEARS AGO, 90 PERCENT STENOSIS, RECOMMENDED CABG . PT GETS INTMT CP. RECENTLY DISCHARGED FROM HOSPITAL FOR HYPOGLYCEMIA OF UNKNOWN CAUSE EKG [facility] February EXAM NEG Time Seen by Provider: 02/24/18 11:47 Chief Complaint (Nursing): Altered Mental Status History Per: Patient, Family History/Exam Limitations: Clinical Condition Onset/Duration Of Symptoms: Hrs Current Symptoms Are (Timing): Still Present Past Medical History Reviewed: Historical Data, Nursing Documentation, Vital Signs Vital Signs: Last Vital Signs Temp 96.6 F L 02/24/18 11:31 Pulse 62 02/24/18 16:10 Resp 18 02/24/18 16:10 BP 162/66 H 02/24/18 16:10 Pulse Ox 100 02/24/18 11:31 - Medical History PMH: Alzheimer's Disease, Arthritis, CAD, COPD, CVA (affecting left side of body ), Dementia, Depression, Diabetes, HTN, Hypercholesterolemia, Hyperlipidemia, Mitral Valve Prolapse Surgical History: Coronary Stent (x3) Comment Only: Pacemaker (.) - [facility] Procedures CENTRAL VENOUS CATHETER PLACEMENT WITH GUIDANCE (07/16/15) CORONAR ARTERIOGR-2 CATH (05/30/14) ESOPHAGOGASTRODUODENOSCOPY [EGD] W/CLOSED BIOPSY (03/28/13) LEFT HEART CARDIAC CATH (05/30/14) LT HEART ANGIOCARDIOGRAM (05/30/14) Family History: States: No Known Family Hx - Social History Hx Tobacco Use: No Hx Alcohol Use: No Hx Substance Use: No - Immunization History Hx Tetanus Toxoid Vaccination: No Hx Influenza Vaccination: No Hx Pneumococcal Vaccination: No Review Of Systems Review Of Systems: ROS cannot be obtained secondary to pt's inabilty to answer questions. Physical Exam - Physical Exam Appears: Non-toxic, No Acute Distress Skin: Normal Color, Warm, Dry, No Rash Head: Normacephalic Eye(s): bilateral: Normal Inspection, PERRL, EOMI Nose: Normal Oral Mucosa: Moist Lips: Normal Appearing Neck: Normal ROM Chest: Symmetrical Cardiovascular: Rhythm Regular, No Murmur Respiratory: Normal Breath Sounds, No Accessory Muscle Use Gastrointestinal/Abdominal: Soft, No Tenderness Extremity: Normal ROM Neurological/Psych: Other (NO FOCAL DEFICIT) ED Course And Treatment - Laboratory Results Result Diagrams: 02/24/18 12:42 02/24/18 13:15 ECG: Interpreted By Me ECG Rhythm: Sinus Rhythm ECG Interpretation: No Changes From Prior (/) Interpretation Of ECG: TWI AVL, V2-V6 NO ST CHANGES QTC 480 Rate From EC Progress - Re-Evaluation Re-evaluation Note: 02/24/18 14:41 EXAM [facility] FROM PRIOR. VSS. PENDING CT 02/24/18 18:04 exam unch. pending med [employer]ER callback 02/24/18 18:30 D/W DR CROWE MED PANELBOARD ASSEMBLER WILL ADMIT. CONSULT DR VINES - Data Reviewed Data Reviewed: Lab, Diagnostic imaging, EKG, Old records Disposition Counseled Patient/Family Regarding: Studies Performed, Diagnosis - Disposition Disposition: HOSPITALIZED Disposition Time: 18:31 Condition: STABLE Forms: [employer] (Divehi) - POA Present On Arrival: None - Clinical Impression Clinical Impression: Abdominal pain, Chest pain - Scribe Statement The provider has reviewed the documentation as recorded by the Scribe (Mallorie Hercules) All medical record entries made by the Scribe were at my direction and personally dictated by me. I have reviewed the chart and agree that the record accurately reflects my personal performance of the history, physical exam, medical decision making, and the department course for this patient. I have also personally directed, reviewed, and agree with the discharge instructions and disposition. Decision To Admit - Pt Status Changed To: Hospital Disposition Of: Observation - . Bed Request Type: Telemetry Admitting Physician: Tanisha Crowe Patient Diagnosis: Abdominal pain, Chest pain
--- NOTE | 2018-02-24 12:46 | RAD ---
PROCEDURE: CHEST RADIOGRAPH, 1 VIEW HISTORY: chest pain COMPARISON: 02/11/2018 FINDINGS: LUNGS: Clear. PLEURA: No pneumothorax or pleural fluid seen. CARDIOVASCULAR: Normal. OSSEOUS STRUCTURES: No significant abnormalities. VISUALIZED UPPER ABDOMEN: Normal. OTHER FINDINGS: None. IMPRESSION: No active disease.
[2018-02-24 12:49] LABS: BASO % 0.6 % (0.0-2.0); EOS # 0.1 K/uL (0.0-0.7); EOS % 1.7 % (0.0-4.0); HEMOGLOBIN 12.4 g/dL (11.0-16.0); LYMPH # 1.8 K/uL (1.0-4.3); LYMPH % 35.9 % (20.0-40.0); MEAN CELL VOLUME 82.6 fL (81.0-99.0); MEAN CORPUSCULAR HEMOGLOBIN 27.1 pg (27.0-31.0); MEAN CORPUSCULAR HGB CONC 32.8 g/dL (33.0-37.0); MEAN PLATELET VOLUME 9.7 fL (7.2-11.7); MONO # 0.3 K/uL (0.0-0.8); MONO % 6.8 % (0.0-10.0); NEUT # 2.7 K/uL (1.8-7.0); NRBC % 0.1 % (0.0-2.0); RBC 4.58 Mil/uL (3.80-5.20); RED CELL DISTRIBUTION WIDTH 13.9 % (11.5-14.5); WHITE BLOOD COUNT 4.9 K/uL (4.8-10.8)
[2018-02-24 12:56] LABS: INR 1.1; PROTHROMBIN TIME 12.1 SECONDS (9.7-12.2)
[2018-02-24 14:28] LABS: ALB/GLOB RATIO 1.1 (1.0-2.1); ALBUMIN 3.4 g/dL (3.5-5.0); ALT/SGPT 9 U/L (9-52); AST/SGOT 28 U/L (14-36); BLOOD UREA NITROGEN 24 mg/dL (7-17); CALCIUM 8.3 mg/dl (8.6-10.4); GFR AFRICAN-AMERICAN > 60; GFR NON-AFRICAN AMERICAN > 60
[2018-02-24] MEDS ORDERED: Barium Sulfate Susp 2.1% w/v, 2.0% w/w 450 mL Bottle PO ONE ×2 (14:55→16:24)
--- NOTE | 2018-02-24 17:58 | CT ---
PROCEDURE: CT Abdomen and Pelvis without intravenous contrast HISTORY: ABD PAIN COMPARISON: None. TECHNIQUE: Without contrast.. Contrast Dose: 0 Radiation dose: Total exam DLP = Total exam DLP = 426.52 mGy-cm. This CT exam was performed using one or more of the following dose reduction techniques: Automated exposure control, adjustment of the mA and/or kV according to patient size, and/or use of iterative reconstruction technique. FINDINGS: LOWER THORAX: Unremarkable. LIVER: Unremarkable. No gross lesion or ductal dilatation. GALLBLADDER AND BILE DUCTS: Unremarkable. PANCREAS: Atrophic pancreas. No mass. SPLEEN: Unremarkable. ADRENALS: Unremarkable. No mass. KIDNEYS AND URETERS: Unremarkable. No hydronephrosis. No solid mass. VASCULATURE: Unremarkable. No aortic aneurysm. BOWEL: Unremarkable. No obstruction. No gross mural thickening. APPENDIX: Unremarkable. Normal appendix. PERITONEUM: Unremarkable. No free fluid. No free air. LYMPH NODES: Unremarkable. No enlarged lymph nodes. BLADDER: Unremarkable. REPRODUCTIVE: Extensive uterine calcification, likely vascular. BONES: No acute fracture. OTHER FINDINGS: None. IMPRESSION: No acute abnormality.
[2018-02-24] MEDS: Insulin Detemir 100 units/ml Vial (Levemir) SC SCH (21:49)
[2018-02-24] MEDS: (Novolog) Insulin Aspart, Recombinant 100 u/ml 10 ml vial SC SCH (21:49)
[2018-02-25] MEDS: (Novolog) Insulin Aspart, Recombinant 100 u/ml 10 ml vial SC SCH ×4 (07:58→21:03)
--- NOTE | 2018-02-25 08:58 | CP.PCM.CON ---
<Emanuel Boyd - Last Filed: 02/25/18 17:07> History of Present Illness - History of Present Illness History of Present Illness: Cardiology Consult Note 82 year old female with a past medical history of Alzheimer's disease, COPD, CAD with stent placement in need of CABG, mitral valve prolpase, hypertension, dyslipidemia, depression, arthritis, CVA with left sided hemiparesis and DM II who presented to [facility] for chest pain and diaphoresis after being given a Tramadol for her abdominal pain. Family state patient became diaphoretic and brought patient to the ED. CT of the abdomen and pelvis was unremarkable, while EKG showed LVH with strain and T-wave inversions in the anteriolateral leads. Troponins x3 were also negative. Cardiology was consulted for further evaluation and management. PMH: as above Past Surgical History/Procedures: 08/13/2014 Left heart catheterization showed left mainstem disease, three vessel disease, and +2 mitral regurgutation. Allergies: Seafood and iodine Social: smoked in the past Review of Systems - Review of Systems All systems: reviewed and no additional remarkable complaints except (as per HPI ) Past Patient History - Infectious Disease Hx of Infectious Diseases: None - Tetanus Immunizations Tetanus Immunization: Unknown - Past Medical History & Family History Past Medical History?: Yes - Past Social History Smoking Status: Never Smoked - CARDIAC Hx Hypercholesterolemia: Yes Hx Hypertension: Yes Hx Mitral Valve Prolapse: Yes Hx Pacemaker: (.) - PULMONARY Hx Chronic Obstructive Pulmonary Disease (COPD): Yes - NEUROLOGICAL Hx Alzheimer's Disease: Yes Hx Dementia: Yes - HEENT Hx HEENT Problems: No - RENAL Hx Chronic Kidney Disease: No - ENDOCRINE/METABOLIC Hx Diabetes Mellitus Type 2: Yes - HEMATOLOGICAL/ONCOLOGICAL Hx Blood Disorders: No - INTEGUMENTARY Hx Dermatological Problems: No - MUSCULOSKELETAL/RHEUMATOLOGICAL Hx Arthritis: Yes - GASTROINTESTINAL Hx Gastrointestinal Disorders: Yes Hx Gastroesophageal Reflux: Yes - GENITOURINARY/GYNECOLOGICAL Hx Genitourinary Disorders: Yes Hx Urinary Tract Infection: Yes - PSYCHIATRIC Hx Depression: Yes Hx Substance Use: No - SURGICAL HISTORY Hx Coronary Stent: Yes (x3) - ANESTHESIA Hx Anesthesia: Yes Hx Anesthesia Reactions: No Hx Malignant Hyperthermia: No Meds Allergies/Adverse Reactions: Allergies Allergy/AdvReac Type Severity Reaction Status Date / Time iodine Allergy RASH Verified 02/24/18 11:36 seafood Allergy Uncoded 02/24/18 11:36 - Medications Medications: Current Medications Amlodipine Besylate (Norvasc) 10 mg PO DAILY [facility] Aspirin (Aspirin Chewable) 81 mg PO DAILY [facility] Clopidogrel Bisulfate (Plavix) 75 mg PO DAILY [facility] Docusate Sodium (Colace) 100 mg PO BID [facility] Enoxaparin Sodium (Lovenox) 40 mg SC DAILY [facility] Insulin Aspart (Novolog) 0 unit SC ACHS [facility] PRN Reason: Protocol Last Admin: 02/25/18 07:58 Dose: 1 unit Insulin Detemir (Levemir) 25 unit SC HS [facility] Last Admin: 02/24/18 21:49 Dose: Not Given Losartan Potassium (Cozaar) 100 mg PO DAILY [facility] Metformin HCl (Glucophage) 500 mg PO ACB [facility] Last Admin: 02/25/18 07:58 Dose: 500 mg Metoprolol Succinate (Toprol Xl) 100 mg PO DAILY [facility] Rosuvastatin Calcium (Crestor) 10 mg PO QPM [facility] Zolpidem Tartrate (Ambien) 5 mg PO HS PRN PRN Reason: Insomnia Physical Exam - Constitutional Appears: Non-toxic - Head Exam Head Exam: ATRAUMATIC, NORMOCEPHALIC - Eye Exam Eye Exam: EOMI - ENT Exam ENT Exam: Mucous Membranes Moist - Respiratory Exam Respiratory Exam: Clear to Auscultation Bilateral - Cardiovascular Exam Cardiovascular Exam: +S1, +S2 - GI/Abdominal Exam GI & Abdominal Exam: absent: Guarding, Rebound - Neurological Exam Neurological exam: Alert - Psychiatric Exam Psychiatric exam: Flat Affect - Skin Skin Exam: Dry, Normal Color Results - Vital Signs Recent Vital Signs: Last Vital Signs Temp 98.1 F 02/25/18 07:30 Pulse 61 02/25/18 08:47 Resp 20 02/25/18 07:30 BP 136/70 02/25/18 07:30 Pulse Ox 97 02/25/18 07:30 - Labs Result Diagrams: 02/24/18 12:42 02/24/18 13:15 Labs: Laboratory Results - last 24 hr 02/24/18 02/24/18 02/24/18 11:30 12:42 12:42 WBC 4.9 RBC 4.58 Hgb 12.4 Hct 37.8 MCV 82.6 MCH 27.1 MCHC 32.8 L RDW 13.9 Plt Count 203 MPV 9.7 Neut % (Auto) 55.0 Lymph % (Auto) 35.9 Whiteside % (Auto) 6.8 Eos % (Auto) 1.7 Baso % (Auto) 0.6 Neut # (Auto) 2.7 Lymph # (Auto) 1.8 Whiteside # (Auto) 0.3 Eos # (Auto) 0.1 Baso # (Auto) 0.0 PT 12.1 INR 1.1 APTT 26 Sodium Potassium Chloride Carbon Dioxide Anion Gap BUN Creatinine Est GFR ( Amer) Est GFR (Non-Af Amer) POC Glucose (mg/dL) 121 H Random Glucose Calcium Total Bilirubin AST ALT Alkaline Phosphatase Troponin I Total Protein Albumin Globulin Albumin/Globulin Ratio 02/24/18 02/24/18 02/24/18 13:15 14:07 16:49 WBC RBC Hgb Hct MCV MCH MCHC RDW Plt Count MPV Neut % (Auto) Lymph % (Auto) Whiteside % (Auto) Eos % (Auto) Baso % (Auto) Neut # (Auto) Lymph # (Auto) Whiteside # (Auto) Eos # (Auto) Baso # (Auto) PT INR APTT Sodium 136 Potassium 5.1 Chloride 103 Carbon Dioxide 19 L Anion Gap 19 BUN 24 H Creatinine 0.5 L Est GFR ( Amer) > 60 Est GFR (Non-Af Amer) > 60 POC Glucose (mg/dL) 189 H 152 H Random Glucose 148 H Calcium 8.3 L Total Bilirubin 0.6 AST 28 ALT 9 D Alkaline Phosphatase 40 Troponin I < 0.0120 Total Protein 6.4 Albumin 3.4 L D Globulin 3.1 Albumin/Globulin Ratio 1.1 02/25/18 02/25/18 02/25/18 06:30 07:20 07:20 WBC RBC Hgb Hct MCV MCH MCHC RDW Plt Count MPV Neut % (Auto) Lymph % (Auto) Whiteside % (Auto) Eos % (Auto) Baso % (Auto) Neut # (Auto) Lymph # (Auto) Whiteside # (Auto) Eos # (Auto) Baso # (Auto) PT INR APTT Sodium Potassium Chloride Carbon Dioxide Anion Gap BUN Creatinine Est GFR ( Amer) Est GFR (Non-Af Amer) POC Glucose (mg/dL) 176 H Random Glucose Calcium Total Bilirubin AST ALT Alkaline Phosphatase Troponin I < 0.0120 0.0130 Total Protein Albumin Globulin Albumin/Globulin Ratio - EKG Data EKG Interpreted by: Myself Rate: Normal - EKG Data When Compared to Previous EKG: No Significant Change Assessment & Plan - Assessment and Plan (Free Text) Assessment: 82 year old female with CAD warranting CABG that presented with chest pain. EKG showed no active ischemia, troponins (-) x 3, echocardiogram showed moderate concentric LVH, estimated EF of 67.5%, transmitral doppler flow pattern of Grade II-pseudonormal filling dynamics, left atrial pressure mildly elevated, trace mitral regurgitation, mild tricuspid regurgitation, RVSP at 38 mmHg, mild pulmonary hypertension, normal aortic root size but with milder sclerocalcific changes. EKG showed LVH with strain and T-wave inversions in the anteriolateral leads. Plan: Continue with aspirin, plavix, statin, and beta-ricky. Plan is for cardiac catheterization, date and time pending, will discuss with family. Case reviewed with Dr. Hennessy, attending physician. - Date & Time Date: 02/25/18 Time: 16:56 <Luis Fernando Hennessy - Last Filed: 02/27/18 12:35> Meds - Medications Medications: Current Medications Amlodipine Besylate (Norvasc) 10 mg PO DAILY [facility] Last Admin: 02/27/18 09:43 Dose: 10 mg Aspirin (Aspirin Chewable) 81 mg PO DAILY [facility] Last Admin: 02/27/18 09:43 Dose: 81 mg Clopidogrel Bisulfate (Plavix) 75 mg PO DAILY [facility] Last Admin: 02/27/18 09:43 Dose: 75 mg Docusate Sodium (Colace) 100 mg PO BID [facility] Last Admin: 02/27/18 09:43 Dose: 100 mg Enoxaparin Sodium (Lovenox) 40 mg SC DAILY [facility] Last Admin: 02/27/18 09:42 Dose: 40 mg Ferric Sodium Gluconate Complex (Ferrlecit) 125 mg IVPB DAILY [facility] Stop: 03/06/18 10:01 Last Admin: 02/27/18 10:07 Dose: 125 mg Ceftriaxone Sodium 1 gm/ (Sodium Chloride) 100 mls @ 100 mls/hr IVPB DAILY [facility] PRN Reason: Protocol Last Admin: 02/27/18 09:41 Dose: 100 mls/hr Insulin Aspart (Novolog) 0 unit SC ACHS [facility] PRN Reason: Protocol Last Admin: 02/27/18 12:33 Dose: 1 unit Insulin Detemir (Levemir) [address] [facility] Last Admin: 02/26/18 22:33 Dose: 25 unit Losartan Potassium (Cozaar) 100 mg PO DAILY [facility] Last Admin: 02/27/18 09:42 Dose: 100 mg Metformin HCl (Glucophage) 500 mg PO ACB [facility] Last Admin: 02/27/18 09:44 Dose: 500 mg Metoprolol Succinate (Toprol Xl) 100 mg PO DAILY [facility] Last Admin: 02/27/18 09:43 Dose: 100 mg Mirtazapine (Remeron) 7.5 mg PO [facility] Last Admin: 02/26/18 22:31 Dose: 7.5 mg Pantoprazole Sodium (Protonix Ec Tab) 40 mg PO DAILY [facility] Last Admin: 02/27/18 09:43 Dose: 40 mg Rosuvastatin Calcium (Crestor) [address] [facility] Last Admin: 02/26/18 22:31 Dose: 10 mg Results - Vital Signs Recent Vital Signs: Last Vital Signs Temp 97.8 F 02/27/18 07:00 Pulse 86 02/27/18 07:00 Resp 18 02/27/18 07:00 BP 135/78 02/27/18 09:43 Pulse Ox 100 02/27/18 07:00 - Labs Result Diagrams: 02/27/18 11:18 02/27/18 11:18 Labs: Laboratory Results - last 24 hr 02/26/18 02/26/18 02/27/18 16:20 21:18 10:09 WBC RBC Hgb Hct MCV MCH MCHC RDW Plt Count MPV Sodium Potassium Chloride Carbon Dioxide Anion Gap BUN Creatinine Est GFR ( Amer) Est GFR (Non-Af Amer) POC Glucose (mg/dL) 238 H 303 H 205 H Random Glucose Calcium 02/27/18 02/27/18 02/27/18 11:18 11:18 12:22 WBC 4.4 L RBC 4.19 Hgb 11.3 Hct 33.9 L MCV 81.1 MCH 26.9 L MCHC 33.2 RDW 13.7 Plt Count 191 MPV 9.9 Sodium 142 Potassium 4.0 Chloride 106 Carbon Dioxide 23 Anion Gap 16 BUN 20 H Creatinine 0.5 L Est GFR ( Amer) > 60 Est GFR (Non-Af Amer) > 60 POC Glucose (mg/dL) 195 H Random Glucose 174 H Calcium 8.6 Attending/Attestation - Attestation I have personally seen and examined this patient.: Yes I have fully participated in the care of the patient.: Yes I have reviewed all pertinent clinical information: Yes
[2018-02-25] MEDS: Metoprolol Succinate 100 mg XL Tab PO SCH (09:48)
[2018-02-25] MEDS: Enoxaparin 40 mg Syringe SC SCH (12:13)
[2018-02-25 12:21] LABS: IRON 56 ug/dL (37-170)
--- NOTE | 2018-02-25 12:41 | CP.PCM.CON ---
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 The patient is unable to provide history given her underlying dementia so I spoke with her daughter over the phone. The patient awoke yesterday morning at around 5-6am with complaint of epigastric abdominal pain. The patient's daughter decided to give her an Ultram which they had at home from prior use. Symptoms did improved initially but patient became further disoriented, more dysarthric and developed chest pain, thus she was brought to the ED for evaluation. At this time the patient is resting comfortably and has no complaints. Work up thus far has been unremarkable, including a PO contrast CT of the abdomen/pelvis. 12 system ROS performed and negative except where stated. PMHx: See HPI PSHx: ? 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, no EtOH or illicit drug use Endo: EGD: 03/21 - H pylori gastritis, unknown if treated Past Patient History - Infectious Disease Hx of Infectious Diseases: None - Tetanus Immunizations Tetanus Immunization: Unknown - Past Medical History & Family History Past Medical History?: Yes - Past Social History Smoking Status: Never Smoked - CARDIAC Hx Hypercholesterolemia: Yes Hx Hypertension: Yes Hx Mitral Valve Prolapse: Yes Hx Pacemaker: (.) - PULMONARY Hx Chronic Obstructive Pulmonary Disease (COPD): Yes - NEUROLOGICAL Hx Alzheimer's Disease: Yes Hx Dementia: Yes - HEENT Hx HEENT Problems: No - RENAL Hx Chronic Kidney Disease: No - ENDOCRINE/METABOLIC Hx Diabetes Mellitus Type 2: Yes - HEMATOLOGICAL/ONCOLOGICAL Hx Blood Disorders: No - INTEGUMENTARY Hx Dermatological Problems: No - MUSCULOSKELETAL/RHEUMATOLOGICAL Hx Arthritis: Yes - GASTROINTESTINAL Hx Gastrointestinal Disorders: Yes Hx Gastroesophageal Reflux: Yes - GENITOURINARY/GYNECOLOGICAL Hx Genitourinary Disorders: Yes Hx Urinary Tract Infection: Yes - PSYCHIATRIC Hx Depression: Yes Hx Substance Use: No - SURGICAL HISTORY Hx Coronary Stent: Yes (x3) - ANESTHESIA Hx Anesthesia: Yes Hx Anesthesia Reactions: No Hx Malignant Hyperthermia: No Meds Allergies/Adverse Reactions: Allergies Allergy/AdvReac Type Severity Reaction Status Date / Time iodine Allergy RASH Verified 02/24/18 11:36 seafood Allergy Uncoded 02/24/18 11:36 - Medications Medications: Current Medications Amlodipine Besylate (Norvasc) 10 mg PO DAILY [facility] Last Admin: 02/25/18 09:48 Dose: 10 mg Aspirin (Aspirin Chewable) 81 mg PO DAILY [facility] Last Admin: 02/25/18 09:48 Dose: 81 mg Clopidogrel Bisulfate (Plavix) 75 mg PO DAILY [facility] Last Admin: 02/25/18 09:48 Dose: 75 mg Docusate Sodium (Colace) 100 mg PO BID [facility] Last Admin: 02/25/18 09:48 Dose: 100 mg Enoxaparin Sodium (Lovenox) 40 mg SC DAILY [facility] Last Admin: 02/25/18 12:13 Dose: 40 mg Insulin Aspart (Novolog) 0 unit SC ACHS [facility] PRN Reason: Protocol Last Admin: 02/25/18 12:14 Dose: 5 unit Insulin Detemir (Levemir) 25 unit SC HS [facility] Last Admin: 02/24/18 21:49 Dose: Not Given Losartan Potassium (Cozaar) 100 mg PO DAILY [facility] Last Admin: 02/25/18 09:48 Dose: 100 mg Metformin HCl (Glucophage) 500 mg PO ACB [facility] Last Admin: 02/25/18 07:58 Dose: 500 mg Metoprolol Succinate (Toprol Xl) 100 mg PO DAILY [facility] Last Admin: 02/25/18 09:48 Dose: 100 mg Rosuvastatin Calcium (Crestor) 10 mg PO QPM [facility] Zolpidem Tartrate (Ambien) 5 mg PO HS PRN PRN Reason: Insomnia Physical Exam - Constitutional Appears: Non-toxic, No Acute Distress - Eye Exam Eye Exam: EOMI, PERRL - ENT Exam ENT Exam: Mucous Membranes Moist - Respiratory Exam Respiratory Exam: Clear to Auscultation Bilateral. absent: Rales, Rhonchi, Wheezes - Cardiovascular Exam Cardiovascular Exam: RRR, +S1, +S2, Systolic Murmur - GI/Abdominal Exam GI & Abdominal Exam: Normal Bowel Sounds, Soft. absent: Distended, Firm, Guarding, Organomegaly, Rigid, Tenderness - Extremities Exam Extremities exam: Positive for: normal inspection. Negative for: pedal edema - Neurological Exam Neurological exam: Altered - Expanded Neurological Exam Expanded Patient oriented to: person Speech: Slurred Speech Neuro motor strength exam: Left Upper Extremity: 0, Left Lower Extremity: 0 - Psychiatric Exam Psychiatric exam: Normal Affect, Normal Mood - Skin Skin Exam: Dry, Warm Results - Vital Signs Recent Vital Signs: Last Vital Signs Temp 98.5 F 02/25/18 09:47 Pulse 78 02/25/18 09:47 Resp 18 02/25/18 09:47 BP 178/61 H 02/25/18 09:47 Pulse Ox 99 02/25/18 09:47 - Labs Result Diagrams: 02/24/18 12:42 02/24/18 13:15 Labs: Laboratory Results - last 24 hr 02/24/18 02/24/18 02/24/18 12:42 12:42 13:15 WBC 4.9 RBC 4.58 Hgb 12.4 Hct 37.8 MCV 82.6 MCH 27.1 MCHC 32.8 L RDW 13.9 Plt Count 203 MPV 9.7 Neut % (Auto) 55.0 Lymph % (Auto) 35.9 [place] % (Auto) 6.8 Eos % (Auto) 1.7 Baso % (Auto) 0.6 Neut # (Auto) 2.7 Lymph # (Auto) 1.8 [place] # (Auto) 0.3 Eos # (Auto) 0.1 Baso # (Auto) 0.0 PT 12.1 INR 1.1 APTT 26 Sodium 136 Potassium 5.1 Chloride 103 Carbon Dioxide 19 L Anion Gap 19 BUN 24 H Creatinine 0.5 L Est GFR ( Amer) > 60 Est GFR (Non-Af Amer) > 60 POC Glucose (mg/dL) Random Glucose 148 H Calcium 8.3 L Iron Total Bilirubin 0.6 AST 28 ALT 9 D Alkaline Phosphatase 40 Troponin I < 0.0120 Total Protein 6.4 Albumin 3.4 L D Globulin 3.1 Albumin/Globulin Ratio 1.1 Triglycerides Cholesterol HDL Cholesterol 02/24/18 02/24/18 02/25/18 14:07 16:49 06:30 WBC RBC Hgb Hct MCV MCH MCHC RDW Plt Count MPV Neut % (Auto) Lymph % (Auto) [place] % (Auto) Eos % (Auto) Baso % (Auto) Neut # (Auto) Lymph # (Auto) [place] # (Auto) Eos # (Auto) Baso # (Auto) PT INR APTT Sodium Potassium Chloride Carbon Dioxide Anion Gap BUN Creatinine Est GFR ( Amer) Est GFR (Non-Af Amer) POC Glucose (mg/dL) 189 H 152 H 176 H Random Glucose Calcium Iron Total Bilirubin AST ALT Alkaline Phosphatase Troponin I Total Protein Albumin Globulin Albumin/Globulin Ratio Triglycerides Cholesterol HDL Cholesterol 02/25/18 02/25/18 02/25/18 07:20 07:20 11:41 WBC RBC Hgb Hct MCV MCH MCHC RDW Plt Count MPV Neut % (Auto) Lymph % (Auto) [place] % (Auto) Eos % (Auto) Baso % (Auto) Neut # (Auto) Lymph # (Auto) [place] # (Auto) Eos # (Auto) Baso # (Auto) PT INR APTT Sodium Potassium Chloride Carbon Dioxide Anion Gap BUN Creatinine Est GFR ( Amer) Est GFR (Non-Af Amer) POC Glucose (mg/dL) Random Glucose Calcium Iron Total Bilirubin AST ALT Alkaline Phosphatase Troponin I < 0.0120 0.0130 Total Protein Albumin Globulin Albumin/Globulin Ratio Triglycerides 86 Cholesterol 110 HDL Cholesterol 34 02/25/18 02/25/18 11:41 12:07 WBC RBC Hgb Hct MCV MCH MCHC RDW Plt Count MPV Neut % (Auto) Lymph % (Auto) [place] % (Auto) Eos % (Auto) Baso % (Auto) Neut # (Auto) Lymph # (Auto) [place] # (Auto) Eos # (Auto) Baso # (Auto) PT INR APTT Sodium Potassium Chloride Carbon Dioxide Anion Gap BUN Creatinine Est GFR ( Amer) Est GFR (Non-Af Amer) POC Glucose (mg/dL) 400 H* Random Glucose Calcium Iron 56 Total Bilirubin AST ALT Alkaline Phosphatase Troponin I Total Protein Albumin Globulin Albumin/Globulin Ratio Triglycerides Cholesterol HDL Cholesterol Assessment & Plan - Assessment and Plan (Free Text) Assessment: Patient is an 82yo female with PMHx significant for alzheimer's dementia, multi- 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, HTN, DM, left sided hemiparesis 2/2 prior CVA, mitral valve prolapse, dyslipidemia who presented to the ED with chest and abdominal pain -Epigastric pain/dyspepsia -Chest pain r/o ACS -CAD -Dementia -Left hemiparesis s/p CVA Plan: -Check H pylori status - Stool Ag - + on prior endoscopy but unknown if treated -Recommend initiation of PPI therapy with Protonix 40mg PO QAMAC -CT A/P noted - unremarkable study -Diet as tolerated -R/O cardiac issues as underlying cause of symptoms -Consider outpatient follow up and EGD is symptoms persist despite therapy - Date & Time Date: 02/25/18 Time: 12:15 <Rah Durbin - Last Filed: 02/25/18 13:28> Meds - Medications Medications: Current Medications Amlodipine Besylate (Norvasc) 10 mg PO DAILY [facility] Last Admin: 02/25/18 09:48 Dose: 10 mg Aspirin (Aspirin Chewable) 81 mg PO DAILY [facility] Last Admin: 02/25/18 09:48 Dose: 81 mg Clopidogrel Bisulfate (Plavix) 75 mg PO DAILY [facility] Last Admin: 02/25/18 09:48 Dose: 75 mg Docusate Sodium (Colace) 100 mg PO BID [facility] Last Admin: 02/25/18 09:48 Dose: 100 mg Enoxaparin Sodium (Lovenox) 40 mg SC DAILY [facility] Last Admin: 02/25/18 12:13 Dose: 40 mg Insulin Aspart (Novolog) 0 unit SC ACHS [facility] PRN Reason: Protocol Last Admin: 02/25/18 12:14 Dose: 5 unit Insulin Detemir (Levemir) 25 unit SC HS [facility] Last Admin: 02/24/18 21:49 Dose: Not Given Losartan Potassium (Cozaar) 100 mg PO DAILY [facility] Last Admin: 02/25/18 09:48 Dose: 100 mg Metformin HCl (Glucophage) 500 mg PO ACB [facility] Last Admin: 02/25/18 07:58 Dose: 500 mg Metoprolol Succinate (Toprol Xl) 100 mg PO DAILY [facility] Last Admin: 02/25/18 09:48 Dose: 100 mg Pantoprazole Sodium (Protonix Ec Tab) 40 mg PO DAILY [facility] Rosuvastatin Calcium (Crestor) 10 mg PO QPM [facility] Zolpidem Tartrate (Ambien) 5 mg PO HS PRN PRN Reason: Insomnia Results - Vital Signs Recent Vital Signs: Last Vital Signs Temp 98.5 F 02/25/18 09:47 Pulse 78 02/25/18 09:47 Resp 18 02/25/18 09:47 BP 178/61 H 02/25/18 09:47 Pulse Ox 99 02/25/18 09:47 - Labs Result Diagrams: 02/24/18 12:42 02/24/18 13:15 Labs: Laboratory Results - last 24 hr 02/24/18 02/24/18 02/24/18 13:15 14:07 16:49 Sodium 136 Potassium 5.1 Chloride 103 Carbon Dioxide 19 L Anion Gap 19 BUN 24 H Creatinine 0.5 L Est GFR ( Amer) > 60 Est GFR (Non-Af Amer) > 60 POC Glucose (mg/dL) 189 H 152 H Random Glucose 148 H Hemoglobin A1c Calcium 8.3 L Iron TIBC % Saturation Total Bilirubin 0.6 AST 28 ALT 9 D Alkaline Phosphatase 40 Troponin I < 0.0120 Total Protein 6.4 Albumin 3.4 L D Globulin 3.1 Albumin/Globulin Ratio 1.1 Triglycerides Cholesterol LDL Cholesterol Direct HDL Cholesterol 02/25/18 02/25/18 02/25/18 06:30 07:20 07:20 Sodium Potassium Chloride Carbon Dioxide Anion Gap BUN Creatinine Est GFR ( Amer) Est GFR (Non-Af Amer) POC Glucose (mg/dL) 176 H Random Glucose Hemoglobin A1c Calcium Iron TIBC % Saturation Total Bilirubin AST ALT Alkaline Phosphatase Troponin I < 0.0120 0.0130 Total Protein Albumin Globulin Albumin/Globulin Ratio Triglycerides Cholesterol LDL Cholesterol Direct HDL Cholesterol 02/25/18 02/25/18 02/25/18 11:41 11:41 11:41 Sodium Potassium Chloride Carbon Dioxide Anion Gap BUN Creatinine Est GFR ( Amer) Est GFR (Non-Af Amer) POC Glucose (mg/dL) Random Glucose Hemoglobin A1c 7.8 H Calcium Iron 56 TIBC 324 % Saturation 17 L Total Bilirubin AST ALT Alkaline Phosphatase Troponin I Total Protein Albumin Globulin Albumin/Globulin Ratio Triglycerides 86 Cholesterol 110 LDL Cholesterol Direct 52 HDL Cholesterol 34 02/25/18 12:07 Sodium Potassium Chloride Carbon Dioxide Anion Gap BUN Creatinine Est GFR ( Amer) Est GFR (Non-Af Amer) POC Glucose (mg/dL) 400 H* Random Glucose Hemoglobin A1c Calcium Iron TIBC % Saturation Total Bilirubin AST ALT Alkaline Phosphatase Troponin I Total Protein Albumin Globulin Albumin/Globulin Ratio Triglycerides Cholesterol LDL Cholesterol Direct HDL Cholesterol Attending/Attestation - Attestation I have personally seen and examined this patient.: Yes I have fully participated in the care of the patient.: Yes I have reviewed all pertinent clinical information: Yes Notes (Text): 02/25/18 13:23 I have seen and examined patient with GI fellow. Agree with above documentation with the following additions. In brief, this is an 82 year old female with history of CVA with residual left hemiparesis, dementia, CAD s/p stent, DM, HTN who initially presented to hospital with complaint of chest pain. GI called for evaluation of abdominal pain which awoke patient from sleep earlier this morning. She is only partially able to communicate effectively due to underlying dementia, additional information obtained via chart review and discussion with patient's daughter. She describes a brief episode of epigastric abdominal pain which resolved on its own within 20 minutes. She also reports ongoing constipation, typically having a bowel movement every other day. She otherwise denies nausea, vomiting, fever/chills, weight loss, rectal bleeding, or change in bowel habits. She had an EGD 5 years ago which showed helicobacter pylori associated gastritis, no prior colonoscopy. Review of vitals from today shows elevated BP. CVA with residual left hemiparesis Dementia CAD s/p stent DM / HTN Abdominal pain, resolved Chest pain - Diabetic diet as tolerated - Continue with PPI therapy - CT imaging reviewed by me showing no acute intra-abdominal pathology - Maintain bowel regimen to prevent constipation - Would check stool Hpylori antigen given prior endoscopic findings 5 years ago , unclear if she was treated - Follow up cardiology recommendations - No further planned inpatient GI interventions, suggest additional outpatient follow up. Will sign off case, please reconsult as necessary, thank you.
[2018-02-25 12:44] LABS: % IRON SATURATION 17 (20-55); TOTAL IRON BINDING CAPACITY 324 ug/dL (250-450)
[2018-02-25] MEDS ORDERED: Pantoprazole 40 mg EC Tab PO SCH (12:45)
--- NOTE | 2018-02-25 13:54 | PCM.PSYCH ---
Initial Psychiatric Evaluation - Initial Psychiatric Evaluation Type of Admission: Voluntary Legal Status: Capacity Chief Complaint (in patient's own words): "Depressed" History of Present Illness and Precipitating Events: The patient is seen, chart reviewed and case discussed. Her adult daughter was at bedside and she is contacted with patient's permission. This is a 82-year-old female, , has 8 children, unemployed, lives with her daughter. The patient is here because she had dizziness and chest pain. However, her daughter says that she is diagnosed with dementia and has been depressed lately. she attributes patient's depression to her other children not visiting her enough. The patient voiced suicidal ideation but more like wishing not to be alive, when she was home. She denies it now, but still feels depressed. However, she is smiling and looks happy. Her daughter also states that she was confused at home occasionally but now she is better and she knows where she is and she knows the people around. She has always been disoriented to time. Her sleep is so-so and takes Ambien, which is stopped. She sometimes sees things but again only when she is confused. It is likely that the patient had delirious episodes due to medical issues but it's clear now. Past psych history: No psych or substance use history in the past. Family psych history: Daughter and granddaughter had depression. Medical history: Diabetes and high blood pressure. Left side paralyzed. Current Medications: Active Medications Generic Name Dose Route Start Last Admin Trade Name Freq PRN Reason Stop Dose Admin Amlodipine Besylate 10 mg 02/25/18 10:00 02/25/18 09:48 Norvasc PO 10 mg DAILY [facility] Administration Aspirin 81 mg 02/25/18 10:00 02/25/18 09:48 Aspirin Chewable PO 81 mg DAILY [facility] Administration Clopidogrel Bisulfate 75 mg 02/25/18 10:00 02/25/18 09:48 Plavix PO 75 mg DAILY [facility] Administration Docusate Sodium 100 mg 02/25/18 10:00 02/25/18 09:48 Colace PO 100 mg BID [facility] Administration Enoxaparin Sodium 40 mg 02/25/18 10:00 02/25/18 12:13 Lovenox SC 40 mg DAILY [facility] Administration Insulin Aspart 0 unit 02/24/18 22:00 02/25/18 12:14 Novolog SC 5 unit ACHS [facility] Administration Protocol Insulin Detemir 25 unit 02/24/18 22:00 02/24/18 21:49 Levemir SC Not Given HS [facility] Losartan Potassium 100 mg 02/25/18 10:00 02/25/18 09:48 Cozaar PO 100 mg DAILY [facility] Administration Metformin HCl 500 mg 02/25/18 07:30 02/25/18 07:58 Glucophage PO 500 mg ACB [facility] Administration Metoprolol Succinate 100 mg 02/25/18 10:00 02/25/18 09:48 Toprol Xl PO 100 mg DAILY [facility] Administration Mirtazapine 7.5 mg 02/25/18 22:00 Remeron PO HS [facility] Pantoprazole Sodium 40 mg 02/26/18 07:30 Protonix Ec Tab PO DAILY [facility] Rosuvastatin Calcium 10 mg 02/25/18 18:00 Crestor PO QPM [facility] Past Psychiatric History - Past Psychiatric History Previous Treatment History: None Pertinent Medical Hx (Current Medical&Sleep Prob, Allergies): Allergies Allergy/AdvReac Type Severity Reaction Status Date / Time iodine Allergy RASH Verified 02/24/18 11:36 seafood Allergy Uncoded 02/24/18 11:36 Aspirin 81 mg PO DAILY 03/09/17 Clopidogrel [Plavix] 75 mg PO DAILY 03/09/17 Docusate [Colace] 100 mg PO BID 03/09/17 Losartan [Cozaar] 100 mg PO DAILY 03/09/17 Metoprolol Succinate [Toprol XL] 100 mg PO QAM 03/09/17 Rosuvastatin Calcium [Crestor] 10 mg PO QPM 03/09/17 Zolpidem [Ambien] 10 mg PO QPM 03/09/17 amLODIPine [Norvasc] 10 mg PO DAILY 03/09/17 Insulin Aspart [Novolog] See Protocol SC TID 30 Days ml 02/12/18 Insulin Detemir [Levemir] 25 unit SQ HS 30 Days ml 02/12/18 Loperamide [Loperamide HCl] 2 mg PO DAILY PRN 02/24/18 Ondansetron ODT [Zofran ODT] 4 mg PO TID PRN 02/24/18 metFORMIN [glucOPHAGE] 500 mg PO DAILY 02/24/18 Review of Systems - Neurological Neurological: Confusion, Dizziness, Focal Weakness, Memory Loss - Psychiatric Psychiatric: Abnormal Sleep Pattern, Anhedonia, Anxiety, Difficulty Concentrating. absent: Hallucinations, Homicidal Ideation, Hopelessness, Irritability, Suicidal Ideation Mental Status Examination - Personal Presentation Personal Presentation: Looks stated age - Affect Affect: Constricted - Motor Activity Motor Activity: Calm - Reliability in Providing Information Reliability in Providing Information: Fair - Speech Speech: Relevant - Mood Mood: Depressed, Anxious - Cognitive Functions Orientation: Person, Place Sensorium: Alert Attention/Concentration: Easily distracted Abstract Thinking: [place] Estimate of Intelligence: Average Judgement: Intact, as evidence by: Insight regarding need for hospitalization Memory: Recent impaired, as evidence by: Inability to recall events of the day, Remote impaired as evidenced by: Inability to recall sig life events - Risk Risk: Diminished functioning - Strength & Assets Inventory Strength & Assets Inventory: Family support, Cooperative - Limitations Limitations: Other DSM 5 DX - DSM 5 DSM 5 Diagnosis: major depressive d/o- single, severe Dementia - unspecified Delirium, now cleared - Recommended/Plan of Treatment Treatment Recommendations and Plan of Treatment: Remeron for depression Frequent orientation and support Family contact Medical workup 32 minutes
[2018-02-25] MEDS: Pantoprazole 40 mg EC Tab PO SCH (14:18)
--- NOTE | 2018-02-25 14:56 | CARD ---
APPROVED REPORT EKG Measurement Heart [id number] <Conclusion> Sinus rhythm with premature atrial complexes Moderate voltage criteria for LVH, may be normal variant ST & Marked T wave abnormality, consider anterolateral ischemia Prolonged QT Abnormal ECG
[2018-02-25 15:11] LABS: URINE BACTERIA MANY (<OCC); URINE BILIRUBIN NEGATIVE (NEGATIVE); URINE BLOOD 1+ (NEGATIVE); URINE CLARITY Clear (Clear); URINE COLOR Yellow (YELLOW); URINE GLUCOSE (UA) 3+ mg/dL (Normal); URINE LEUKOCYTE ESTERASE 2+ Leu/uL (Negative); URINE PROTEIN NEGATIVE (NEGATIVE); URINE UROBILINOGEN NORMAL mg/dL (0.2-1.0)
--- NOTE | 2018-02-25 15:29 | CARD ---
APPROVED REPORT EXAM: Two-dimensional and M-mode echocardiogram with Doppler and color Doppler. Other Information Quality : GoodRhythm : INDICATION CVA/TIA Chest Pain RISK FACTORS Diabetes 2D DIMENSIONS IVSd1.4 (0.7-1.1cm)LVDd4.0 (3.9-5.9cm) PWd1.2 (0.7-1.1cm)LVDs2.5 (2.5-4.0cm) FS (%) 37.5 %LVEF (%)68.1 (>50%) M-Mode DIMENSIONS Left Atrium (MM)3.31 (2.5-4.0cm)IVSd1.63 (0.7-1.1cm) Aortic Root3.19 (2.2-3.7cm)LVDd4.58 (4.0-5.6cm) Aortic Cusp Exc.1.97 (1.5-2.0cm)PWd1.21 (0.7-1.1cm) FS (%) 42 %LVDs2.67 (2.0-3.8cm) LVEF (%)73 (>50%) Mitral Valve MV E Lrckrjfk10.1cm/sMV A Bcdsdwst94.6cm/sE/A ratio0.9 TDI E/Lateral E'0.0E/Medial E'0.0 Tricuspid Valve TR Peak [id number]/sTR Peak [id number] LEFT VENTRICLE The left ventricle is normal size. There is moderate concentric left ventricular hypertrophy. The Ejection Fraction is 65-70%. There is normal LV segmental wall motion. Transmitral Doppler flow pattern is Grade II-pseudonormal filling dynamics. The left atrial pressure is mildly elevated. RIGHT VENTRICLE The right ventricle is normal size. The right ventricular systolic function is normal. ATRIA The left atrium size is normal. The right atrium size is normal. The interatrial septum is intact with no evidence for an atrial septal defect. AORTIC VALVE The aortic valve is trileaflet. The aortic valve is mildly sclerotic. No aortic regurgitation is present. MITRAL VALVE The mitral valve is normal in structure. Mitral regurgitation is trace. TRICUSPID VALVE The tricuspid valve is normal in structure. There is mild tricuspid regurgitation. Right ventricular systolic pressure is estimated at 38 mmHg. There is mild pulmonary hypertension. PULMONIC VALVE The pulmonary valve is normal in structure. GREAT VESSELS The aortic root is normal size. The aortic root displays mild sclerocalcific changes of the aortic root. The IVC is normal in size and collapses >50% with inspiration. PERICARDIAL EFFUSION There is no pericardial effusion. <Conclusion> The left ventricle is normal size. There is moderate concentric left ventricular hypertrophy. The Ejection Fraction is 65-70%. Transmitral Doppler flow pattern is Grade II-pseudonormal filling dynamics. The left atrial pressure is mildly elevated. Mitral regurgitation is trace. There is mild tricuspid regurgitation. Right ventricular systolic pressure is estimated at 38 mmHg. There is mild pulmonary hypertension. The aortic root is normal size. The aortic root displays mild sclerocalcific changes of the aortic root. The IVC is normal in size and collapses >50% with inspiration.
--- NOTE | 2018-02-25 16:51 | HP ---
DATE OF EXAM: 02/24/2018 The patient was seen and examined on 02/24/2018 late evening. CHIEF COMPLAINT: Chest pain. HISTORY OF PRESENT ILLNESS: Ms. Romana Mixon is an 82-year-old female who came with chest pain. The daughter states that the patient does not have a regular history of abdominal pain and chest problem and states that she gave the patient Ultram that she used to take a long time ago, pain resolved, but an hour or two later, the patient had onset of chest pain and diaphoresis while eating breakfast. No loss of consciousness. No fever, no chills. When I saw the patient late evening in her room, she was asymptomatic, at baseline. The patient has history of multiple cardiac stents as we cathed 5 years ago, 90% stenosis, recommended CABG, but patient refused. The patient now came with chest pain, recently discharged from the hospital for hypoglycemia of unknown cause. The patient is very noncompliant, is not a good historian. I got history from ER notes and with the help of nursing staff. Sometimes, the patient is having altered mental status, not on her base. 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 FAMILY HISTORY: Father and mother, noncontributory. HABITS: Never smoked, no drugs, no ethanol. ALLERGIES: THE PATIENT IS ALLERGIC TO IODINE AND SEAFOOD. REVIEW OF SYSTEMS: Cannot be obtained secondary to the patient's inability to answer questions and the patient is very noncompliant. It looks like, does not have a fever, looks like not in distress, having weakness of the left side of the body. PHYSICAL EXAMINATION: VITAL SIGNS: Temperature 96.6, pulse 52, respiratory rate 18, blood pressure 160/66, pulse oximeter 100%. HEENT: Head: Normocephalic, atraumatic. Eyes: PERRLA. Extraocular muscles intact. Conjunctivae clear. Nose patent. NECK: Supple. No carotid bruit. No JVD or thyromegaly. CHEST: Symmetrical. HEART: Regular rate and rhythm. No murmur. LUNGS: Normal breathing sounds. No accessory muscle using. ABDOMEN: Soft, nontender, no organomegaly. EXTREMITIES: No cyanosis, no edema. Left extremity is decreased in power. NEUROLOGIC: The patient looks like awake, alert, but not cooperative to do complete neurological examination. LABORATORY DATA: White blood cell is 4.9, hemoglobin 12.4, hematocrit 37.8, platelets 203. Sodium 136, potassium 5.1, BUN 24, creatinine 0.5, glucose 148. ASSESSMENT AND PLAN: Ms. Romana Mixon is an 82-year-old lady with renal insufficiency, diabetes mellitus, had chest pain. Cardiology consult called with Dr. Hennessy. CAT scan of the abdomen done. The patient put in the Telemetry. CAT scan of the abdomen and pelvis is within normal limits. Cardiac enzymes times 3 ordered, but the patient refused. Discussion done with nursing staff. The patient has history of dementia, arthritis, coronary artery disease, chronic obstructive pulmonary disease, cerebrovascular accident affecting left side of the body, depression, hypertension, hypercholesterolemia, mitral nicolas prolapse, coronary stenting times 3. Please put physical therapy. Insomnia, getting Ambien for that and constipation, getting Colace. For hypertension, getting Cozaar. Hypercholesterolemia, getting Crestor. Put the patient on sliding scale. Levemir is started. Lovenox given for deep venous thrombosis prophylaxis. Continue Plavix. Gastrointestinal prophylaxis. Repeat labs. We will follow up. Tanisha Conner MD
[2018-02-25] MEDS: Insulin Detemir 100 units/ml Vial (Levemir) SC SCH (21:07)
--- NOTE | 2018-02-26 04:32 | PN ---
DATE: 02/25/2018 SUBJECTIVE: The patient is 82-year-old female. The patient is seen and examined on bedside. Looking comfortable. No more chest pain. No headache. No dizziness. No abdominal pain. At this point, the patient is resting comfortably and has no complaints. Workup has been unremarkable including p.o. contrast, CT of the abdomen and pelvis. Twelve system review of systems performed and negative except stated above. PHYSICAL EXAMINATION: VITAL SIGNS: Temperature 98.4, pulse 71, blood pressure 142/69, respiratory rate 18. HEENT: Head normocephalic and atraumatic. Eyes: PERRLA. Extraocular muscles intact. Conjunctivae clear. Nose patent. Mucous membranes moist. NECK: Supple. No carotid bruits. No JVD or thyromegaly. CHEST: Bilaterally symmetrical. HEART: S1 and S2 positive. LUNGS: Clear to auscultation. ABDOMEN: Soft. Bowel sounds positive. No organomegaly. EXTREMITIES: No edema, no cyanosis. NEUROLOGICAL: The patient is awake, alert; moving all 4 extremities. No focal deficits. MEDICATIONS: Aspirin, Colace, Cozaar, Crestor, metformin, Levemir, Lovenox, Norvasc, Plavix, Protonix, Remeron. LABORATORY DATA: We do not have labs today, but I reviewed old labs. Glucose 225, 336, 400. Hemoglobin A1c is 7.8, iron saturation is 17. ASSESSMENT AND PLAN: Ms. Talisha Avendano is an 82-year-old lady with uncontrolled diabetes mellitus, iron deficiency, glucosuria, hematuria, urinary tract infection, came with abdominal pain and chest pain, seen by Dr. 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 Chest pain, rule out acute coronary syndrome. Check H. pylori status, stool antigen sent. Recommended initiation of PPI therapy with Protonix. Diet as tolerated. According to GI, the patient will need outpatient GI workup. Seen by Dr. migue Brunson for Cardiology. Troponins are negative. Echocardiography shows moderate concentric LVH, ejection fraction of 67.5. Continue with aspirin, Plavix, statin, and beta ricky. Plan is for cardiac catheterization and date and time pending; as per burglar alarm assembler, it may be tomorrow. The patient is depressed. Consult with the psychiatrist appreciated. The patient was seen and examined at bedside on the 02/25/2018. We will replace iron. We will follow up. Tanisha Conner MD MTDD
[2018-02-26 07:18] LABS: HEMOGLOBIN 11.1 g/dL (11.0-16.0); MEAN CELL VOLUME 81.7 fL (81.0-99.0); MEAN CORPUSCULAR HEMOGLOBIN 27.2 pg (27.0-31.0); MEAN CORPUSCULAR HGB CONC 33.2 g/dL (33.0-37.0); MEAN PLATELET VOLUME 9.6 fL (7.2-11.7); RBC 4.1 Mil/uL (3.80-5.20)
[2018-02-26 07:39] LABS: BLOOD UREA NITROGEN 20 mg/dL (7-17); CALCIUM 8.8 mg/dl (8.6-10.4); GFR AFRICAN-AMERICAN > 60; GFR NON-AFRICAN AMERICAN > 60
[2018-02-26] MEDS: (Novolog) Insulin Aspart, Recombinant 100 u/ml 10 ml vial SC SCH ×3 (08:24→21:42)
[2018-02-26] MEDS: Ferric Sodium Gluconat Complex 62.5 mg/5 ml Vial IVPB SCH (10:08)
[2018-02-26] MEDS: Pantoprazole 40 mg EC Tab PO SCH (10:09)
[2018-02-26] MEDS: Metoprolol Succinate 100 mg XL Tab PO SCH (10:09)
[2018-02-26] MEDS: Enoxaparin 40 mg Syringe SC SCH (10:10)
--- NOTE | 2018-02-26 12:10 | CP.PCM.PN ---
<Oliver,Emanuel - Last Filed: 02/26/18 12:12> Subjective - Date & Time of Evaluation Date of Evaluation: 02/26/18 Time of Evaluation: 10:35 - Subjective Subjective: Patient seen and examined at bedside. Patient denies any chest pain, dyspnea, or palpitations. Nurse reports no adverse events overnight. Chart review indicates patient has a UTI. Objective - Vital Signs/Intake and Output Vital Signs (last 24 hours): Temp Pulse Resp BP Pulse Ox 98.2 F 64 20 146/79 97 02/26/18 07:35 02/26/18 07:35 02/26/18 07:35 02/26/18 07:35 02/26/18 07:35 Intake and Output: 02/26/18 02/26/18 06:59 18:59 Intake Total 320 Output Total 1300 Balance -980 - Medications Medications: Current Medications Amlodipine Besylate (Norvasc) 10 mg PO DAILY [facility] Last Admin: 02/26/18 10:09 Dose: 10 mg Aspirin (Aspirin Chewable) 81 mg PO DAILY [facility] Last Admin: 02/26/18 10:10 Dose: 81 mg Clopidogrel Bisulfate (Plavix) 75 mg PO DAILY [facility] Last Admin: 02/26/18 10:10 Dose: 75 mg Docusate Sodium (Colace) 100 mg PO BID [facility] Last Admin: 02/26/18 10:11 Dose: 100 mg Enoxaparin Sodium (Lovenox) 40 mg SC DAILY [facility] Last Admin: 02/26/18 10:10 Dose: 40 mg Ferric Sodium Gluconate Complex (Ferrlecit) 125 mg IVPB DAILY [facility] Stop: 03/06/18 10:01 Last Admin: 02/26/18 10:08 Dose: 125 mg Ceftriaxone Sodium 1 gm/ (Sodium Chloride) 100 mls @ 100 mls/hr IVPB DAILY [facility] PRN Reason: Protocol Last Admin: 02/26/18 09:05 Dose: 100 mls/hr Insulin Aspart (Novolog) 0 unit SC ACHS [facility] PRN Reason: Protocol Last Admin: 02/26/18 08:24 Dose: 2 unit Insulin Detemir (Levemir) 25 unit SC HS [facility] Last Admin: 02/25/18 21:07 Dose: 25 unit Losartan Potassium (Cozaar) 100 mg PO DAILY [facility] Last Admin: 02/26/18 10:09 Dose: 100 mg Metformin HCl (Glucophage) 500 mg PO ACB [facility] Last Admin: 02/26/18 08:23 Dose: 500 mg Metoprolol Succinate (Toprol Xl) 100 mg PO DAILY [facility] Last Admin: 02/26/18 10:09 Dose: 100 mg Mirtazapine (Remeron) 7.5 mg PO HS [facility] Last Admin: 02/25/18 21:03 Dose: 7.5 mg Pantoprazole Sodium (Protonix Ec Tab) 40 mg PO DAILY [facility] Last Admin: 02/26/18 10:09 Dose: 40 mg Rosuvastatin Calcium (Crestor) 10 mg PO QPM [facility] Last Admin: 02/25/18 18:09 Dose: 10 mg - Labs Labs: 02/26/18 06:59 02/26/18 06:59 PT 12.1 SECONDS (9.7-12.2) 02/24/18 12:42 INR 1.1 02/24/18 12:42 APTT 26 SECONDS (21-34) 02/24/18 12:42 - Constitutional Appears: Well, Non-toxic - Head Exam Head Exam: ATRAUMATIC, NORMOCEPHALIC - Eye Exam Eye Exam: EOMI, Normal appearance - ENT Exam ENT Exam: Mucous Membranes Moist - Neck Exam Neck Exam: Normal Inspection - Respiratory Exam Respiratory Exam: Clear to Ausculation Bilateral, NORMAL BREATHING PATTERN. absent: Accessory Muscle Use - Cardiovascular Exam Cardiovascular Exam: RRR, +S1, +S2 - GI/Abdominal Exam GI & Abdominal Exam: Soft. absent: Rebound - Extremities Exam Extremities Exam: Normal Inspection. absent: Calf Tenderness - Neurological Exam Neurological Exam: Alert, Awake - Psychiatric Exam Psychiatric exam: Normal Affect, Normal Mood - Skin Skin Exam: Dry, Intact, Normal Color, Warm Assessment and Plan - Assessment and Plan (Free Text) Assessment: 82 year old female with CAD warranting CABG that presented with chest pain. EKG showed no active ischemia, troponins (-) x 3, echocardiogram showed moderate concentric LVH, estimated EF of 67.5%, transmitral doppler flow pattern of Grade II-pseudonormal filling dynamics, left atrial pressure mildly elevated, trace mitral regurgitation, mild tricuspid regurgitation, RVSP at 38 mmHg, mild pulmonary hypertension, normal aortic root size but with milder sclerocalcific changes. EKG showed LVH with strain and T-wave inversions in the anteriolateral leads. Plan: Continue with aspirin, plavix, statin, and beta-ricky. Plan is for cardiac catheterization, date and time pending, will discuss with family. Case reviewed with Dr. Hennessy, attending physician. <Luis Fernando Hennessy - Last Filed: 02/27/18 12:35> Objective - Vital Signs/Intake and Output Vital Signs (last 24 hours): Temp Pulse Resp BP Pulse Ox 97.8 F 86 18 135/78 100 02/27/18 07:00 02/27/18 07:00 02/27/18 07:00 02/27/18 09:43 02/27/18 07:00 Intake and Output: 02/27/18 02/27/18 06:59 18:59 Intake Total 480 Output Total 250 Balance 230 - Medications Medications: Current Medications Amlodipine Besylate (Norvasc) 10 mg PO DAILY [facility] Last Admin: 02/27/18 09:43 Dose: 10 mg Aspirin (Aspirin Chewable) 81 mg PO DAILY [facility] Last Admin: 02/27/18 09:43 Dose: 81 mg Clopidogrel Bisulfate (Plavix) 75 mg PO DAILY [facility] Last Admin: 02/27/18 09:43 Dose: 75 mg Docusate Sodium (Colace) 100 mg PO BID [facility] Last Admin: 02/27/18 09:43 Dose: 100 mg Enoxaparin Sodium (Lovenox) 40 mg SC DAILY [facility] Last Admin: 02/27/18 09:42 Dose: 40 mg Ferric Sodium Gluconate Complex (Ferrlecit) 125 mg IVPB DAILY [facility] Stop: 03/06/18 10:01 Last Admin: 02/27/18 10:07 Dose: 125 mg Ceftriaxone Sodium 1 gm/ (Sodium Chloride) 100 mls @ 100 mls/hr IVPB DAILY [facility] PRN Reason: Protocol Last Admin: 02/27/18 09:41 Dose: 100 mls/hr Insulin Aspart (Novolog) 0 unit SC ACHS [facility] PRN Reason: Protocol Last Admin: 02/27/18 12:33 Dose: 1 unit Insulin Detemir (Levemir) 25 unit SC HS [facility] Last Admin: 02/26/18 22:33 Dose: 25 unit Losartan Potassium (Cozaar) 100 mg PO DAILY [facility] Last Admin: 02/27/18 09:42 Dose: 100 mg Metformin HCl (Glucophage) 500 mg PO ACB [facility] Last Admin: 02/27/18 09:44 Dose: 500 mg Metoprolol Succinate (Toprol Xl) 100 mg PO DAILY [facility] Last Admin: 02/27/18 09:43 Dose: 100 mg Mirtazapine (Remeron) 7.5 mg PO HS [facility] Last Admin: 02/26/18 22:31 Dose: 7.5 mg Pantoprazole Sodium (Protonix Ec Tab) 40 mg PO DAILY [facility] Last Admin: 02/27/18 09:43 Dose: 40 mg Rosuvastatin Calcium (Crestor) 10 mg PO HS [facility] Last Admin: 02/26/18 22:31 Dose: 10 mg - Labs Labs: 02/27/18 11:18 02/27/18 11:18 PT 12.1 SECONDS (9.7-12.2) 02/24/18 12:42 INR 1.1 02/24/18 12:42 APTT 26 SECONDS (21-34) 02/24/18 12:42 Attending/Attestation - Attestation I have personally seen and examined this patient.: Yes I have fully participated in the care of the patient.: Yes I have reviewed all pertinent clinical information, including history, physical exam and plan: Yes
[2018-02-26] MEDS: Insulin Detemir 100 units/ml Vial (Levemir) SC SCH (22:33)
[2018-02-27] MEDS: (Novolog) Insulin Aspart, Recombinant 100 u/ml 10 ml vial SC SCH ×4 (08:51→21:45)
[2018-02-27] MEDS: Enoxaparin 40 mg Syringe SC SCH (09:42)
[2018-02-27] MEDS: Metoprolol Succinate 100 mg XL Tab PO SCH (09:43)
[2018-02-27] MEDS: Pantoprazole 40 mg EC Tab PO SCH (09:43)
[2018-02-27] MEDS: Ferric Sodium Gluconat Complex 62.5 mg/5 ml Vial IVPB SCH (10:07)
--- NOTE | 2018-02-27 10:40 | PN ---
DATE: 02/26/2018. SUBJECTIVE: The patient is seen and examined on bedside. No nausea, vomiting, or diarrhea. No hematuria or hematochezia. No swelling of the leg. No chest pain. No palpitations, headache or dizziness. Daughter and granddaughter was on the bedside. No fever, no chills. Looks better overnight. No adverse event happened. PHYSICAL EXAMINATION: VITAL SIGNS: Temperature 98.2, pulse is 64, respiratory rate 20, blood pressure 140/79, pulse oximetry 97. HEENT: Head normocephalic and atraumatic. Eyes, PERRLA. Extraocular muscles intact. Conjunctivae clear. Nose patent. Mucous membranes moist. NECK: Supple. No carotid bruits. No JVD or thyromegaly. CHEST: Clear. ABDOMEN: Soft. Bowel sounds positive. No organomegaly. EXTREMITIES: No edema, no cyanosis. NEUROLOGICAL: The patient is awake, alert, moving all 4 extremities. No focal deficits. MEDICATIONS: Aspirin, Plavix, Colace, Lovenox, ferric sulphate, NS, ceftriaxone, insulin, Levemir, Toprol, Remeron, Protonix, Crestor. LABORATORY DATA: White blood cells 4.0, hemoglobin 11.1, hematocrit 33.5, platelets 197, sodium 141, potassium 3.7, BUN 20, creatinine 0.3, glucose 182. ASSESSMENT AND PLAN: Ms. Romana Woodall is an 82 years old lady with leukopenia, renal insufficiency, hyperglycemia with coronary artery disease underwent coronary artery bypass graft presented with chest pain. EKG showed no active ischemic changes, troponin x3 is negative. Echocardiograph shows moderate concentric left ventricular hypertrophy, estimated ejection fraction 67.5, transmitral Doppler flow pattern of grade 2 pseudonormal filling dynamics, left atrial pressure mildly elevated with mitral regurgitation. Pulmonary hypertension. EKG showed left ventricular hypertrophy with strain, T-wave inversion in the anterolateral leads. Continue with aspirin, Plavix, and beta blockers. Plan for cardiac catheterization, date and time may be Thursday, Dr. Luis Fernando Hennessy will discuss with the family. Discussion done with the daughter and granddaughter. The patient was seen by psychiatrist, seen by IVELISSE Monreal also. Out of bed, physical therapy, repeat labs and we will follow up. Tanisha Conner MD YAS[facility]
[2018-02-27 11:24] LABS: HEMOGLOBIN 11.3 g/dL (11.0-16.0); MEAN CELL VOLUME 81.1 fL (81.0-99.0); MEAN CORPUSCULAR HEMOGLOBIN 26.9 pg (27.0-31.0); MEAN CORPUSCULAR HGB CONC 33.2 g/dL (33.0-37.0); MEAN PLATELET VOLUME 9.9 fL (7.2-11.7); RBC 4.19 Mil/uL (3.80-5.20); RED CELL DISTRIBUTION WIDTH 13.7 % (11.5-14.5); WHITE BLOOD COUNT 4.4 K/uL (4.8-10.8)
[2018-02-27 11:41] LABS: BLOOD UREA NITROGEN 20 mg/dL (7-17); CALCIUM 8.6 mg/dl (8.6-10.4); GFR AFRICAN-AMERICAN > 60; GFR NON-AFRICAN AMERICAN > 60
--- NOTE | 2018-02-27 12:37 | CP.PCM.PN ---
Subjective - Date & Time of Evaluation Date of Evaluation: 02/27/18 Time of Evaluation: 12:36 - Subjective Subjective: stable Objective - Vital Signs/Intake and Output Vital Signs (last 24 hours): Temp Pulse Resp BP Pulse Ox 97.8 F 86 18 135/78 100 02/27/18 07:00 02/27/18 07:00 02/27/18 07:00 02/27/18 09:43 02/27/18 07:00 Intake and Output: 02/27/18 02/27/18 06:59 18:59 Intake Total 480 Output Total 250 Balance 230 - Medications Medications: Current Medications Amlodipine Besylate (Norvasc) 10 mg PO DAILY [facility] Last Admin: 02/27/18 09:43 Dose: 10 mg Aspirin (Aspirin Chewable) 81 mg PO DAILY [facility] Last Admin: 02/27/18 09:43 Dose: 81 mg Clopidogrel Bisulfate (Plavix) 75 mg PO DAILY [facility] Last Admin: 02/27/18 09:43 Dose: 75 mg Docusate Sodium (Colace) 100 mg PO BID [facility] Last Admin: 02/27/18 09:43 Dose: 100 mg Enoxaparin Sodium (Lovenox) 40 mg SC DAILY [facility] Last Admin: 02/27/18 09:42 Dose: 40 mg Ferric Sodium Gluconate Complex (Ferrlecit) 125 mg IVPB DAILY [facility] Stop: 03/06/18 10:01 Last Admin: 02/27/18 10:07 Dose: 125 mg Ceftriaxone Sodium 1 gm/ (Sodium Chloride) 100 mls @ 100 mls/hr IVPB DAILY [facility] PRN Reason: Protocol Last Admin: 02/27/18 09:41 Dose: 100 mls/hr Insulin Aspart (Novolog) 0 unit SC ACHS [facility] PRN Reason: Protocol Last Admin: 02/27/18 12:33 Dose: 1 unit Insulin Detemir (Levemir) 25 unit SC HS [facility] Last Admin: 02/26/18 22:33 Dose: 25 unit Losartan Potassium (Cozaar) 100 mg PO DAILY [facility] Last Admin: 02/27/18 09:42 Dose: 100 mg Metformin HCl (Glucophage) 500 mg PO ACB [facility] Last Admin: 02/27/18 09:44 Dose: 500 mg Metoprolol Succinate (Toprol Xl) 100 mg PO DAILY [facility] Last Admin: 02/27/18 09:43 Dose: 100 mg Mirtazapine (Remeron) 7.5 mg PO HS [facility] Last Admin: 02/26/18 22:31 Dose: 7.5 mg Pantoprazole Sodium (Protonix Ec Tab) 40 mg PO DAILY [facility] Last Admin: 02/27/18 09:43 Dose: 40 mg Rosuvastatin Calcium (Crestor) 10 mg PO HS [facility] Last Admin: 02/26/18 22:31 Dose: 10 mg - Labs Labs: 02/27/18 11:18 02/27/18 11:18 PT 12.1 SECONDS (9.7-12.2) 02/24/18 12:42 INR 1.1 02/24/18 12:42 APTT 26 SECONDS (21-34) 02/24/18 12:42 - Constitutional Appears: Well - Head Exam Head Exam: ATRAUMATIC, NORMAL INSPECTION, NORMOCEPHALIC - Eye Exam Eye Exam: EOMI, Normal appearance, PERRL Pupil Exam: NORMAL ACCOMODATION, PERRL - ENT Exam ENT Exam: Mucous Membranes Moist, Normal Exam - Neck Exam Neck Exam: Full ROM, Normal Inspection. absent: Lymphadenopathy - Respiratory Exam Respiratory Exam: Clear to Ausculation Bilateral, NORMAL BREATHING PATTERN - Cardiovascular Exam Cardiovascular Exam: REGULAR RHYTHM, +S1, +S2. absent: Murmur - GI/Abdominal Exam GI & Abdominal Exam: Soft, Normal Bowel Sounds. absent: Tenderness - Extremities Exam Extremities Exam: Full ROM, Normal Capillary Refill, Normal Inspection. absent : Joint Swelling, Pedal Edema - Back Exam Back Exam: NORMAL INSPECTION - Neurological Exam Neurological Exam: Alert, Awake, CN II-XII Intact, Normal Gait, Oriented x3 - Psychiatric Exam Psychiatric exam: Normal Affect, Normal Mood - Skin Skin Exam: Dry, Intact, Normal Color, Warm Assessment and Plan (1) Chest pain Status: Acute (2) CAD (coronary artery disease) Status: Chronic (3) Hyperlipemia Status: Chronic (4) Hypertension Status: Chronic
--- NOTE | 2018-02-27 15:33 | CP.PCM.CON ---
History of Present Illness - History of Present Illness History of Present Illness: INFECTIOUS DISEASE CONSULT: HPI: 82 year old female with a past medical history of Alzheimer's disease, COPD, CAD with stent placement in need of CABG, mitral valve prolpase, hypertension, dyslipidemia, depression, arthritis, CVA with left sided hemiparesis and DM II who presented to [facility] for chest pain and diaphoresis after being given a Tramadol for her abdominal pain. Family state patient became diaphoretic and brought patient to the ED. CT of the abdomen and pelvis was unremarkable, while EKG showed LVH with strain and T-wave inversions in the anteriolateral leads. Troponins x3 were also negative. Cardiology was consulted for further evaluation and management. INFECTIOUS DISEASE CONSULTED URINE CULTURES REPORTED +VE E.COLI >100,000 CFU/ OR.PT IS INCONTINENT OF URINE PER RN. HX OBTAAIONED FROM CHART AND STAFF PT. UNABLE TO GIVE DETAILS. URINE OBTAINED BY ST. CATHETHERIZATION PER RN. PT STARTED ON IV [id number] ONCE DAILY . PMH: as above CADWITH STENT,COPD,DEMENTIA,MVP,HTN,DEPRESSION,CVA WITH LT.HEMIPERESIS, DM TYPE 2. Past Surgical History/Procedures: 08/13/2014 Left heart catheterization showed left mainstem disease, three vessel disease, and +2 mitral regurgutation. Allergies: Seafood and iodine Social: smoked in the past FH ; [place]. Social History Hx Tobacco Use: No Hx Alcohol Use: No Hx Substance Use: No - Immunization History Hx Tetanus Toxoid Vaccination: No Hx Influenza Vaccination: No Hx Pneumococcal Vaccination: No Review Of Systems Review Of Systems: ROS cannot be obtained secondary to pt's inabilty to answer questions. Past Patient History - Infectious Disease Hx of Infectious Diseases: None - Tetanus Immunizations Tetanus Immunization: Unknown - Past Medical History & Family History Past Medical History?: Yes - Past Social History Smoking Status: Never Smoked - CARDIAC Hx Cardiac Disorders: Yes (Coronary stent, MVP, Pacemaker) Hx Hypercholesterolemia: Yes Hx Hypertension: Yes - PULMONARY Hx Chronic Obstructive Pulmonary Disease (COPD): Yes - NEUROLOGICAL HX Cerebrovascular Accident: Yes - HEENT Hx HEENT Problems: No - RENAL Hx Chronic Kidney Disease: No - ENDOCRINE/METABOLIC Hx Diabetes Mellitus Type 2: Yes - HEMATOLOGICAL/ONCOLOGICAL Hx Blood Disorders: No - INTEGUMENTARY Hx Dermatological Problems: No - MUSCULOSKELETAL/RHEUMATOLOGICAL Hx Arthritis: Yes Hx Falls: No - GASTROINTESTINAL Hx Gastrointestinal Disorders: Yes Hx Gastroesophageal Reflux: Yes - GENITOURINARY/GYNECOLOGICAL Hx Genitourinary Disorders: Yes Hx Urinary Tract Infection: Yes - PSYCHIATRIC Hx Depression: Yes Hx Substance Use: No - SURGICAL HISTORY Hx Coronary Stent: Yes (x3) - ANESTHESIA Hx Anesthesia: Yes Hx Anesthesia Reactions: No Hx Malignant Hyperthermia: No Meds Allergies/Adverse Reactions: Allergies Allergy/AdvReac Type Severity Reaction Status Date / Time iodine Allergy RASH Verified 02/24/18 11:36 seafood Allergy Uncoded 02/24/18 11:36 - Medications Medications: Current Medications Amlodipine Besylate (Norvasc) 10 mg PO DAILY [facility] Last Admin: 02/27/18 09:43 Dose: 10 mg Aspirin (Aspirin Chewable) 81 mg PO DAILY [facility] Last Admin: 02/27/18 09:43 Dose: 81 mg Clopidogrel Bisulfate (Plavix) 75 mg PO DAILY [facility] Last Admin: 02/27/18 09:43 Dose: 75 mg Docusate Sodium (Colace) 100 mg PO BID [facility] Last Admin: 02/27/18 09:43 Dose: 100 mg Enoxaparin Sodium (Lovenox) 40 mg SC DAILY [facility] Last Admin: 02/27/18 09:42 Dose: 40 mg Ferric Sodium Gluconate Complex (Ferrlecit) 125 mg IVPB DAILY [facility] Stop: 03/06/18 10:01 Last Admin: 02/27/18 10:07 Dose: 125 mg Ceftriaxone Sodium 1 gm/ (Sodium Chloride) 100 mls @ 100 mls/hr IVPB DAILY [facility] PRN Reason: Protocol Last Admin: 02/27/18 09:41 Dose: 100 mls/hr Insulin Aspart (Novolog) 0 unit SC ACHS [facility] PRN Reason: Protocol Last Admin: 02/27/18 12:33 Dose: 1 unit Insulin Detemir (Levemir) 25 unit SC HS [facility] Last Admin: 02/26/18 22:33 Dose: 25 unit Losartan Potassium (Cozaar) 100 mg PO DAILY [facility] Last Admin: 02/27/18 09:42 Dose: 100 mg Metformin HCl (Glucophage) 500 mg PO ACB [facility] Last Admin: 02/27/18 09:44 Dose: 500 mg Metoprolol Succinate (Toprol Xl) 100 mg PO DAILY [facility] Last Admin: 02/27/18 09:43 Dose: 100 mg Mirtazapine (Remeron) 7.5 mg PO [facility] Last Admin: 02/26/18 22:31 Dose: 7.5 mg Pantoprazole Sodium (Protonix Ec Tab) 40 mg PO DAILY [facility] Last Admin: 02/27/18 09:43 Dose: 40 mg Rosuvastatin Calcium (Crestor) 10 mg PO [facility] Last Admin: 02/26/18 22:31 Dose: 10 mg Physical Exam - Constitutional Appears: No Acute Distress, Confused - Head Exam Head Exam: NORMAL INSPECTION - Eye Exam Eye Exam: EOMI, PERRL - ENT Exam ENT Exam: Normal Oropharynx - Neck Exam Neck exam: Positive for: Normal Inspection. Negative for: Meningismus - Respiratory Exam Respiratory Exam: Clear to Auscultation Bilateral - Cardiovascular Exam Cardiovascular Exam: REGULAR RHYTHM, +S1, +S2 - GI/Abdominal Exam GI & Abdominal Exam: Normal Bowel Sounds, Soft. absent: Tenderness - Extremities Exam Extremities exam: Positive for: pedal pulses present. Negative for: calf tenderness, pedal edema - Neurological Exam Neurological exam: Alert, CN II-XII Intact (LT HEMIPERESIS.) - Skin Skin Exam: Dry, Normal Color Results - Vital Signs Recent Vital Signs: Last Vital Signs Temp 97.8 F 02/27/18 07:00 Pulse 74 02/27/18 12:59 Resp 18 02/27/18 07:00 BP 135/78 02/27/18 09:43 Pulse Ox 100 02/27/18 07:00 - Labs Result Diagrams: 02/27/18 11:18 02/27/18 11:18 Labs: Laboratory Results - last 24 hr 02/26/18 02/26/18 02/27/18 16:20 21:18 10:09 WBC RBC Hgb Hct MCV MCH MCHC RDW Plt Count MPV Sodium Potassium Chloride Carbon Dioxide Anion Gap BUN Creatinine Est GFR ( Amer) Est GFR (Non-Af Amer) POC Glucose (mg/dL) 238 H 303 H 205 H Random Glucose Calcium 02/27/18 02/27/18 02/27/18 11:18 11:18 12:22 WBC 4.4 L RBC 4.19 Hgb 11.3 Hct 33.9 L MCV 81.1 MCH 26.9 L MCHC 33.2 RDW 13.7 Plt Count 191 MPV 9.9 Sodium 142 Potassium 4.0 Chloride 106 Carbon Dioxide 23 Anion Gap 16 BUN 20 H Creatinine 0.5 L Est GFR ( Amer) > 60 Est GFR (Non-Af Amer) > 60 POC Glucose (mg/dL) 195 H Random Glucose 174 H Calcium 8.6 - Imaging and Cardiology CT scan - abdomen/PELVIS PO CONTRAST Status: Report reviewed by me Assessment & Plan (1) UTI (lower urinary tract infection) Assessment and Plan: PANCULTURE. CONTINUE IV ROCEPHIN 1GM IVPB [id number].02/27/18. CRP. LFTS CBC W DIFF. BMP. F/U CULTURES TO ADJUST ABX. Status: Acute (2) Abdominal pain Status: Acute (3) Chest pain Assessment and Plan: TROPINON X3 -VE CARDIOLOGY ON BOARD. Status: Acute (4) Alzheimers disease Status: Acute (5) CVA, old, hemiparesis Status: Acute (6) Dementia Status: Acute (7) Diabetes mellitus Status: Chronic
[2018-02-27] MEDS: Insulin Detemir 100 units/ml Vial (Levemir) SC SCH (21:47)
[2018-02-28] MEDS: cefTRIAXone IV 1 gm in Dextros 50 ML IVPB SCH ×3 (01:03→23:55)
[2018-02-28] MEDS: (Novolog) Insulin Aspart, Recombinant 100 u/ml 10 ml vial SC SCH ×4 (07:36→21:50)
[2018-02-28 07:47] LABS: HEMOGLOBIN 11.9 g/dL (11.0-16.0); MEAN CELL VOLUME 81.6 fL (81.0-99.0); MEAN CORPUSCULAR HEMOGLOBIN 26.8 pg (27.0-31.0); MEAN CORPUSCULAR HGB CONC 32.9 g/dL (33.0-37.0); MEAN PLATELET VOLUME 9.5 fL (7.2-11.7); RBC 4.44 Mil/uL (3.80-5.20); RED CELL DISTRIBUTION WIDTH 14.3 % (11.5-14.5); WHITE BLOOD COUNT 4.9 K/uL (4.8-10.8)
[2018-02-28 07:59] LABS: BLOOD UREA NITROGEN 16 mg/dL (7-17); CALCIUM 9.1 mg/dl (8.6-10.4); GFR AFRICAN-AMERICAN > 60; GFR NON-AFRICAN AMERICAN > 60
[2018-02-28] MEDS: Ferric Sodium Gluconat Complex 62.5 mg/5 ml Vial IVPB SCH (08:59)
[2018-02-28] MEDS: Pantoprazole 40 mg EC Tab PO SCH (09:00)
[2018-02-28] MEDS: Enoxaparin 40 mg Syringe SC SCH (09:00)
[2018-02-28] MEDS: Metoprolol Succinate 100 mg XL Tab PO SCH (09:00)
[2018-02-28] MEDS ORDERED: Potassium Chloride 20 mEq ER Tab PO ONE (18:00)
[2018-02-28] MEDS: Insulin Detemir 100 units/ml Vial (Levemir) SC SCH (22:15)
--- NOTE | 2018-02-28 23:56 | PN ---
DATE: 02/27/2018 SUBJECTIVE: The patient is an 82-year-old female. The patient was seen and examined on 02/27/2018 on the bedside. Looking comfortable. No nausea, vomiting or diarrhea. No hematuria or hematochezia. No swelling of the leg. No chest pain, no palpitation. No headache, no dizziness. Daughter and granddaughter is on the bedside. Length of time discussion done, all questions answered. PHYSICAL EXAMINATION: VITAL SIGNS: Temperature 97.8, pulse 86, respiratory rate 18, blood pressure 135/78, pulse oximetry 100. HEENT: Head normocephalic, atraumatic. Eyes, PERRLA. Extraocular muscles intact. Conjunctivae clear. Nose patent. Mucous membrane moist. NECK: Supple. No carotid bruit, JVD or thyromegaly. CHEST: Bilaterally symmetrical. HEART: S1 and S2 positive. LUNGS: Clear to auscultation. ABDOMEN: Soft. Bowel sounds present. No organomegaly. EXTREMITIES: No edema. No cyanosis. NEUROLOGICAL: The patient is awake and alert. Moving all 4 extremities. No focal deficits. MEDICATIONS: Norvasc, aspirin, Plavix, Colace, Lovenox, ferric gluconate, NS, NovoLog, Levemir, Cozaar, Glucophage, Toprol, Remeron, Protonix, Crestor. LABORATORY DATA: White blood cells 4.4, hemoglobin 11.3, hematocrit 33.9, platelets 191. Sodium 142, potassium 4, BUN 20, creatinine 0.5, and glucose 174. ASSESSMENT AND PLAN: Mrs. Romana Woodall is an 82 years old lady with leukopenia, renal insufficiency, hyperglycemia, came with chest pain, coronary artery disease, hyperlipidemia, hypertension. Seen by compressor mechanic bus Dr. Luis Fernando Hennessy, he is suggesting cardiac catheterization. As per the patient's family, the patient's compressor mechanic bus is at [place], they want to go there for procedure but Dr. Luis Fernando Hennessy is working with the family to convince them to get catheterization. The patient has history of stroke, chronic obstructive pulmonary disease, cardiac stent placement, mitral valve prolapse, dyslipidemia, depression, arthritis, diabetes mellitus type 2. The patient has positive Escherichia coli urinary tract infection. The patient started on ceftriaxone once a day. Repeat labs. Out of bed. Physical therapy. We will follow. Tanisha Conner MD [facility] # [id number]
[2018-03-01] MEDS: (Novolog) Insulin Aspart, Recombinant 100 u/ml 10 ml vial SC SCH ×4 (08:30→21:29)
--- NOTE | 2018-03-01 10:21 | CP.PCM.PN ---
<OliverEmanuel - Last Filed: 03/01/18 11:45> Subjective - Date & Time of Evaluation Date of Evaluation: 03/01/18 Time of Evaluation: 09:40 - Subjective Subjective: Cardiology Progress Note Patient seen and examined at bedside. Patient is sleeping, but arousable and answers questions appropriately, but appears more lethargic compared to prior visits. Patient denies any chest pain, dyspnea, or palpitations. Nurse reports no adverse events overnight. Objective - Vital Signs/Intake and Output Vital Signs (last 24 hours): Temp Pulse Resp BP Pulse Ox 97.8 F 64 18 150/76 97 03/01/18 07:00 03/01/18 07:00 03/01/18 07:00 03/01/18 07:00 03/01/18 07:00 - Medications Medications: Current Medications Amlodipine Besylate (Norvasc) 10 mg PO DAILY [facility] Last Admin: 02/28/18 09:00 Dose: 10 mg Aspirin (Aspirin Chewable) 81 mg PO DAILY [facility] Last Admin: 02/28/18 09:00 Dose: 81 mg Clopidogrel Bisulfate (Plavix) 75 mg PO DAILY [facility] Last Admin: 02/28/18 09:00 Dose: 75 mg Docusate Sodium (Colace) 100 mg PO BID [facility] Last Admin: 02/28/18 17:21 Dose: 100 mg Enoxaparin Sodium (Lovenox) 40 mg SC DAILY [facility] Last Admin: 02/28/18 09:00 Dose: 40 mg Ferric Sodium Gluconate Complex (Ferrlecit) 125 mg IVPB DAILY [facility] Stop: 03/06/18 10:01 Last Admin: 02/28/18 08:59 Dose: 125 mg Ceftriaxone Sodium (Rocephin Iv 1 Gm Duplex) 50 mls @ 100 mls/hr IVPB Q12H [facility] PRN Reason: Protocol Last Admin: 02/28/18 23:55 Dose: 100 mls/hr Insulin Aspart (Novolog) 0 unit SC ACHS [facility] PRN Reason: Protocol Last Admin: 03/01/18 08:30 Dose: 4 unit Insulin Detemir (Levemir) 25 unit SC HS [facility] Last Admin: 02/28/18 22:15 Dose: Not Given Losartan Potassium (Cozaar) 100 mg PO DAILY [facility] Last Admin: 02/28/18 09:00 Dose: 100 mg Metformin HCl (Glucophage) 500 mg PO ACB [facility] Last Admin: 03/01/18 08:30 Dose: 500 mg Metoprolol Succinate (Toprol Xl) 100 mg PO DAILY [facility] Last Admin: 02/28/18 09:00 Dose: 100 mg Mirtazapine (Remeron) 7.5 mg PO [facility] Last Admin: 02/28/18 21:38 Dose: Not Given Pantoprazole Sodium (Protonix Ec Tab) 40 mg PO DAILY [facility] Last Admin: 02/28/18 09:00 Dose: 40 mg Rosuvastatin Calcium (Crestor) 10 mg PO [facility] Last Admin: 02/28/18 21:38 Dose: Not Given - Labs Labs: 02/28/18 07:36 02/28/18 07:36 PT 12.1 SECONDS (9.7-12.2) 02/24/18 12:42 INR 1.1 02/24/18 12:42 APTT 26 SECONDS (21-34) 02/24/18 12:42 - Constitutional Appears: Non-toxic, No Acute Distress - Head Exam Head Exam: ATRAUMATIC, NORMOCEPHALIC - Eye Exam Eye Exam: EOMI, Normal appearance - ENT Exam ENT Exam: Mucous Membranes Moist - Neck Exam Neck Exam: Normal Inspection - Respiratory Exam Respiratory Exam: Clear to Ausculation Bilateral, NORMAL BREATHING PATTERN - Cardiovascular Exam Cardiovascular Exam: RRR, +S1, +S2 - GI/Abdominal Exam GI & Abdominal Exam: Soft, Normal Bowel Sounds. absent: Distended - Extremities Exam Extremities Exam: Normal Inspection - Back Exam Back Exam: NORMAL INSPECTION. absent: CVA tenderness (L), CVA tenderness (R) - Neurological Exam Neurological Exam: Alert, Awake, Oriented x3 - Psychiatric Exam Psychiatric exam: Normal Affect, Normal Mood - Skin Skin Exam: Dry, Intact, Normal Color, Warm Assessment and Plan - Assessment and Plan (Free Text) Assessment: 82 year old female with CAD warranting CABG that presented with chest pain. EKG showed no active ischemia, troponins (-) x 3, echocardiogram showed moderate concentric LVH, estimated EF of 67.5%, transmitral doppler flow pattern of Grade II-pseudonormal filling dynamics, left atrial pressure mildly elevated, trace mitral regurgitation, mild tricuspid regurgitation, RVSP at 38 mmHg, mild pulmonary hypertension, normal aortic root size but with milder sclerocalcific changes. EKG showed LVH with strain and T-wave inversions in the anteriolateral leads. Plan: Continue with aspirin, plavix, statin, and beta-ricky. Continue with maximal medical therapy, will schedule patient for nuclear stress test tomorrow Case reviewed and discussed with Dr. Hennessy, attending physician. <Luis Fernando Hennessy - Last Filed: 03/01/18 21:53> Objective - Vital Signs/Intake and Output Vital Signs (last 24 hours): Temp Pulse Resp BP Pulse Ox 98.1 F 62 20 119/69 98 03/01/18 16:00 03/01/18 16:22 03/01/18 16:00 03/01/18 16:00 03/01/18 16:00 Intake and Output: 03/01/18 03/02/18 18:59 06:59 Intake Total 180 Balance 180 - Medications Medications: Current Medications Amlodipine Besylate (Norvasc) 10 mg PO DAILY [facility] Last Admin: 03/01/18 10:51 Dose: 10 mg Aspirin (Aspirin Chewable) 81 mg PO DAILY [facility] Last Admin: 03/01/18 10:51 Dose: 81 mg Clopidogrel Bisulfate (Plavix) 75 mg PO DAILY [facility] Last Admin: 03/01/18 10:50 Dose: 75 mg Docusate Sodium (Colace) 100 mg PO BID [facility] Last Admin: 03/01/18 17:43 Dose: 100 mg Enoxaparin Sodium (Lovenox) 40 mg SC DAILY [facility] Last Admin: 03/01/18 10:52 Dose: 40 mg Ferric Sodium Gluconate Complex (Ferrlecit) 125 mg IVPB DAILY [facility] Stop: 03/06/18 10:01 Last Admin: 03/01/18 10:51 Dose: 125 mg Ceftriaxone Sodium (Rocephin Iv 1 Gm Duplex) 50 mls @ 100 mls/hr IVPB Q12H [facility] PRN Reason: Protocol Last Admin: 03/01/18 12:49 Dose: 100 mls/hr Insulin Aspart (Novolog) 0 unit SC ACHS [facility] PRN Reason: Protocol Last Admin: 03/01/18 21:29 Dose: Not Given Insulin Detemir (Levemir) 25 unit SC HS [facility] Last Admin: 03/01/18 21:33 Dose: 25 unit Losartan Potassium (Cozaar) 100 mg PO DAILY [facility] Last Admin: 03/01/18 10:50 Dose: 100 mg Metformin HCl (Glucophage) 500 mg PO ACB [facility] Last Admin: 03/01/18 08:30 Dose: 500 mg Metoprolol Succinate (Toprol Xl) 100 mg PO DAILY [facility] Last Admin: 03/01/18 10:51 Dose: 100 mg Mirtazapine (Remeron) 7.5 mg PO HS [facility] Last Admin: 03/01/18 21:30 Dose: 7.5 mg Pantoprazole Sodium (Protonix Ec Tab) 40 mg PO DAILY [facility] Last Admin: 03/01/18 10:51 Dose: 40 mg Rosuvastatin Calcium (Crestor) 10 mg PO HS [facility] Last Admin: 03/01/18 21:28 Dose: 10 mg - Labs Labs: 02/28/18 07:36 03/01/18 16:36 PT 12.1 SECONDS (9.7-12.2) 02/24/18 12:42 INR 1.1 02/24/18 12:42 APTT 26 SECONDS (21-34) 02/24/18 12:42 Assessment and Plan (1) Chest pain Status: Acute (2) CAD (coronary artery disease) Status: Chronic (3) Hyperlipemia Status: Chronic (4) Hypertension Status: Chronic Attending/Attestation - Attestation I have personally seen and examined this patient.: Yes I have fully participated in the care of the patient.: Yes I have reviewed all pertinent clinical information, including history, physical exam and plan: Yes Notes (Text): 03/01/18 21:52 discussed patient's functional status with daughter OTP will schedule for nuclear stress test in am npo p mn cont current meds
[2018-03-01] MEDS: Pantoprazole 40 mg EC Tab PO SCH (10:51)
[2018-03-01] MEDS: Ferric Sodium Gluconat Complex 62.5 mg/5 ml Vial IVPB SCH (10:51)
[2018-03-01] MEDS: Metoprolol Succinate 100 mg XL Tab PO SCH (10:51)
[2018-03-01] MEDS: Enoxaparin 40 mg Syringe SC SCH (10:52)
[2018-03-01] MEDS: cefTRIAXone IV 1 gm in Dextros 50 ML IVPB SCH (12:49)
[2018-03-01 16:54] LABS: BLOOD UREA NITROGEN 39 mg/dL (7-17); CALCIUM 8.6 mg/dl (8.6-10.4); GFR AFRICAN-AMERICAN > 60; GFR NON-AFRICAN AMERICAN > 60
[2018-03-01] MEDS ORDERED: Potassium Chloride 20 mEq ER Tab PO ONE (18:00)
--- NOTE | 2018-03-01 18:47 | CP.PCM.PN ---
Subjective - Date & Time of Evaluation Date of Evaluation: 03/01/18 Time of Evaluation: 18:47 - Subjective Subjective: CHIEF COMPLAINTS TODAY : AFEBRILE, LETHARGIC AROUSABLE. DENIES SOB/OR CHEST PAIN ROS. HEENT : N. Resp : No cough, wheezing ,pleuritic CP ,or hemoptysis Cardio : No anginal CP, PND, orthopnea, palpitation GI : No abd.pain, n/v ,diarrhea or GI bleeding . QUALITY ASSURANCE ANALYST : No headache, vertigo, focal deficit. Musculoskel : No joint swelling , Derm : No rash Psych : Normal affect. Ext : No swelling ,calf pain PE. Pt. is awake in no distress. WEAK V.S As noted in the chart Head ,ear nose,throat and eyes : Normal. Neck : Supple with normal carotids. Lungs: Clear air entry. Heart : S1 & S2 normal with S4. No murmur. Abd : Soft non tender with normal bowel sounds. Neuro : Moves all ext. with no localized deficit. Ext : No edema with intact pulses.Non tender calves Derm : No rashes or decubitus ulcer. LABS/RADIOLOGY: REVIEWED URINE CULTURE +VE E .COLI s-cefepime R- CIPRO Objective - Vital Signs/Intake and Output Vital Signs (last 24 hours): Temp Pulse Resp BP Pulse Ox 98.1 F 62 20 119/69 98 03/01/18 16:00 03/01/18 16:22 03/01/18 16:00 03/01/18 16:00 03/01/18 16:00 Intake and Output: 03/01/18 03/01/18 06:59 18:59 Intake Total 180 Balance 180 - Medications Medications: Current Medications Amlodipine Besylate (Norvasc) 10 mg PO DAILY [facility] Last Admin: 03/01/18 10:51 Dose: 10 mg Aspirin (Aspirin Chewable) 81 mg PO DAILY [facility] Last Admin: 03/01/18 10:51 Dose: 81 mg Clopidogrel Bisulfate (Plavix) 75 mg PO DAILY [facility] Last Admin: 03/01/18 10:50 Dose: 75 mg Docusate Sodium (Colace) 100 mg PO BID [facility] Last Admin: 03/01/18 17:43 Dose: 100 mg Enoxaparin Sodium (Lovenox) 40 mg SC DAILY [facility] Last Admin: 03/01/18 10:52 Dose: 40 mg Ferric Sodium Gluconate Complex (Ferrlecit) 125 mg IVPB DAILY [facility] Stop: 03/06/18 10:01 Last Admin: 03/01/18 10:51 Dose: 125 mg Ceftriaxone Sodium (Rocephin Iv 1 Gm Duplex) 50 mls @ 100 mls/hr IVPB Q12H [facility] PRN Reason: Protocol Last Admin: 03/01/18 12:49 Dose: 100 mls/hr Insulin Aspart (Novolog) 0 unit SC ACHS [facility] PRN Reason: Protocol Last Admin: 03/01/18 17:43 Dose: 2 unit Insulin Detemir (Levemir) 25 unit SC HS [facility] Last Admin: 02/28/18 22:15 Dose: Not Given Losartan Potassium (Cozaar) 100 mg PO DAILY [facility] Last Admin: 03/01/18 10:50 Dose: 100 mg Metformin HCl (Glucophage) 500 mg PO ACB [facility] Last Admin: 03/01/18 08:30 Dose: 500 mg Metoprolol Succinate (Toprol Xl) 100 mg PO DAILY [facility] Last Admin: 03/01/18 10:51 Dose: 100 mg Mirtazapine (Remeron) 7.5 mg PO HS [facility] Last Admin: 02/28/18 21:38 Dose: Not Given Pantoprazole Sodium (Protonix Ec Tab) 40 mg PO DAILY [facility] Last Admin: 03/01/18 10:51 Dose: 40 mg Rosuvastatin Calcium (Crestor) 10 mg PO HS [facility] Last Admin: 02/28/18 21:38 Dose: Not Given - Labs Labs: 02/28/18 07:36 03/01/18 16:36 PT 12.1 SECONDS (9.7-12.2) 02/24/18 12:42 INR 1.1 02/24/18 12:42 APTT 26 SECONDS (21-34) 02/24/18 12:42 Assessment and Plan (1) UTI (lower urinary tract infection) Assessment & Plan: CONTINUE IV ROCEPHIN 1GM IVPB [id number].02/27/18 PT INCONTINANT OF URINE PER RN. Status: Acute (2) Abdominal pain Status: Acute (3) Chest pain Assessment & Plan: Continue with aspirin, plavix, statin, and beta-ricky. Continue with maximal medical therapy, PT. scheduled for nuclear stress test tomorrow as per cardio. Status: Acute (4) Alzheimers disease Status: Acute (5) CVA, old, hemiparesis Status: Acute (6) Dementia Status: Acute (7) Diabetes mellitus Status: Chronic
[2018-03-01] MEDS: Insulin Detemir 100 units/ml Vial (Levemir) SC SCH (21:33)
[2018-03-02] MEDS: cefTRIAXone IV 1 gm in Dextros 50 ML IVPB SCH ×2 (01:00→12:31)
--- NOTE | 2018-03-02 05:42 | PN ---
DATE: 03/01/2018 SUBJECTIVE: The patient is 82 years old female. The patient is seen and examined at the bedside on 03/01/2018. Looking comfortable. No nausea, vomiting, or diarrhea. No hematuria or hematochezia. No swelling of the leg. No chest pain. No palpitations. No headache or dizziness. No fever. No chills. PHYSICAL EXAMINATION: VITAL SIGNS: Temperature 97.8, pulse 64, respiratory rate 18, blood pressure 150/70, pulse oximetry 97. HEENT: Head normocephalic and atraumatic. Eyes: PERRLA. Extraocular muscles intact. Conjunctivae clear. Nose patent. Mucous membranes moist. NECK: Supple. No carotid bruits. No JVD or thyromegaly. CHEST: Bilaterally symmetrical. HEART: S1 and S2 positive. LUNGS: Clear to auscultation. ABDOMEN: Soft. Bowel sounds positive. No organomegaly. EXTREMITIES: No edema, no cyanosis. NEUROLOGICAL: The patient is awake, alert; follows simple commands. MEDICATIONS: Amlodipine, aspirin, Plavix, Colace, Lovenox, Glucotrol, insulin, Levemir, Cozaar, Glucophage, Toprol, Remeron, Protonix, Crestor. LABORATORY DATA: White blood cells 4.9, hemoglobin 11.9, hematocrit 36.2, platelets 224. Sodium 144, potassium 3.4, BUN 16, creatinine 0.6, glucose 124. ASSESSMENT AND PLAN: The patient is an 82-year-old lady with hypokalemia, replaced; hyperglycemia with history of coronary artery disease, wanting a coronary artery bypass graft , presents with chest pain. EKG showed no acute ischemic. Troponin x3 is negative. Echocardiography showed moderate concentric left ventricular hypertrophy. Plan is to continue aspirin, Plavix, statin, and beta blockers. Continue with maximal medical therapy. We will schedule nuclear stress test tomorrow as per Dr. Hennessy. Dr. Hennessy had discussion done with the patient's daughter over the phone and plan stress test tomorrow. The patient's hyperlipidemia and hypertension are stable. We will follow up. Tanisha Conner MD [facility] # [id number] MTDD
[2018-03-02 07:16] LABS: PROTHROMBIN TIME 11.4 SECONDS (9.7-12.2)
[2018-03-02] MEDS: (Novolog) Insulin Aspart, Recombinant 100 u/ml 10 ml vial SC SCH ×4 (08:22→21:13)
[2018-03-02] MEDS: Ferric Sodium Gluconat Complex 62.5 mg/5 ml Vial IVPB SCH (10:00)
[2018-03-02] MEDS: Metoprolol Succinate 100 mg XL Tab PO SCH (10:00)
[2018-03-02] MEDS: Pantoprazole 40 mg EC Tab PO SCH (10:00)
[2018-03-02] MEDS: Enoxaparin 40 mg Syringe SC SCH (10:00)
--- NOTE | 2018-03-02 10:10 | CP.PCM.PN ---
<Emanuel Boyd - Last Filed: 03/02/18 15:31> Subjective - Date & Time of Evaluation Date of Evaluation: 03/02/18 Time of Evaluation: 09:40 - Subjective Subjective: Cardiology Progress Note Patient seen and examined at bedside. Patient is s/p nuclear stress test and resting comfortably. Patient is more somnolent as of today, but arousable. Otherwise, chart review indcates no untowards events overnight. Objective - Vital Signs/Intake and Output Vital Signs (last 24 hours): Temp Pulse Resp BP Pulse Ox 97.7 F 59 L 20 113/62 98 03/02/18 07:00 03/02/18 07:00 03/02/18 07:00 03/02/18 07:00 03/02/18 07:00 Intake and Output: 03/02/18 03/02/18 06:59 18:59 Intake Total 500 Output Total 400 Balance 100 - Medications Medications: Current Medications Amlodipine Besylate (Norvasc) 10 mg PO DAILY [facility] Last Admin: 03/01/18 10:51 Dose: 10 mg Aspirin (Aspirin Chewable) 81 mg PO DAILY [facility] Last Admin: 03/01/18 10:51 Dose: 81 mg Clopidogrel Bisulfate (Plavix) 75 mg PO DAILY [facility] Last Admin: 03/01/18 10:50 Dose: 75 mg Docusate Sodium (Colace) 100 mg PO BID [facility] Last Admin: 03/01/18 17:43 Dose: 100 mg Enoxaparin Sodium (Lovenox) 40 mg SC DAILY [facility] Last Admin: 03/01/18 10:52 Dose: 40 mg Ferric Sodium Gluconate Complex (Ferrlecit) 125 mg IVPB DAILY [facility] Stop: 03/06/18 10:01 Last Admin: 03/01/18 10:51 Dose: 125 mg Ceftriaxone Sodium (Rocephin Iv 1 Gm Duplex) 50 mls @ 100 mls/hr IVPB Q12H [facility] PRN Reason: Protocol Last Admin: 03/02/18 01:00 Dose: 100 mls/hr Insulin Aspart (Novolog) 0 unit SC ACHS [facility] PRN Reason: Protocol Last Admin: 03/02/18 08:22 Dose: Not Given Insulin Detemir (Levemir) 25 unit SC HS [facility] Last Admin: 03/01/18 21:33 Dose: 25 unit Losartan Potassium (Cozaar) 100 mg PO DAILY [facility] Last Admin: 03/01/18 10:50 Dose: 100 mg Metformin HCl (Glucophage) 500 mg PO ACB [facility] Last Admin: 03/02/18 08:03 Dose: Not Given Metoprolol Succinate (Toprol Xl) 100 mg PO DAILY [facility] Last Admin: 03/01/18 10:51 Dose: 100 mg Mirtazapine (Remeron) 7.5 mg PO HS [facility] Last Admin: 03/01/18 21:30 Dose: 7.5 mg Pantoprazole Sodium (Protonix Ec Tab) 40 mg PO DAILY [facility] Last Admin: 03/01/18 10:51 Dose: 40 mg Rosuvastatin Calcium (Crestor) 10 mg PO HS [facility] Last Admin: 03/01/18 21:28 Dose: 10 mg - Labs Labs: 02/28/18 07:36 03/01/18 16:36 PT 11.4 SECONDS (9.7-12.2) 03/02/18 07:00 INR 1.0 03/02/18 07:00 APTT 31 SECONDS (21-34) 03/02/18 07:00 - Constitutional Appears: Non-toxic, Older Than Stated Age - Head Exam Head Exam: ATRAUMATIC, NORMOCEPHALIC - Eye Exam Eye Exam: EOMI, Normal appearance - Neck Exam Neck Exam: Normal Inspection - Respiratory Exam Respiratory Exam: Clear to Ausculation Bilateral, NORMAL BREATHING PATTERN. absent: Accessory Muscle Use - Cardiovascular Exam Cardiovascular Exam: RRR, +S1, +S2 - GI/Abdominal Exam GI & Abdominal Exam: Soft - Extremities Exam Additional comments: left arm contractured - Neurological Exam Neurological Exam: Awake - Psychiatric Exam Psychiatric exam: Normal Affect, Normal Mood - Skin Skin Exam: Dry, Intact, Normal Color, Warm Assessment and Plan - Assessment and Plan (Free Text) Assessment: 82 year old female with CAD warranting CABG that presented with chest pain. EKG showed no active ischemia, troponins (-) x 3, echocardiogram showed moderate concentric LVH, estimated EF of 67.5%, transmitral doppler flow pattern of Grade II-pseudonormal filling dynamics, left atrial pressure mildly elevated, trace mitral regurgitation, mild tricuspid regurgitation, RVSP at 38 mmHg, mild pulmonary hypertension, normal aortic root size but with milder sclerocalcific changes. EKG showed LVH with strain and T-wave inversions in the anteriolateral leads. Plan: Continue with aspirin, plavix, statin, and beta-ricky. Continue with maximal medical therapy, nuclear stress test shows Transient Ischemic Dilatation of 1.5 consistent with clinically significant CAD. Will discuss findings with family and will go from there Case reviewed and discussed with Dr. Hennessy, attending physician. <Luis Fernando Hennessy - Last Filed: 03/03/18 08:02> Objective - Vital Signs/Intake and Output Vital Signs (last 24 hours): Temp Pulse Resp BP Pulse Ox 97.8 F 56 L 20 130/70 96 03/02/18 23:25 03/02/18 23:30 03/02/18 23:25 03/02/18 23:25 03/02/18 23:25 - Medications Medications: Current Medications Amlodipine Besylate (Norvasc) 10 mg PO DAILY [facility] Last Admin: 03/02/18 10:00 Dose: Not Given Aspirin (Aspirin Chewable) 81 mg PO DAILY [facility] Last Admin: 03/02/18 10:00 Dose: Not Given Clopidogrel Bisulfate (Plavix) 75 mg PO DAILY [facility] Last Admin: 03/02/18 10:00 Dose: Not Given Docusate Sodium (Colace) 100 mg PO BID [facility] Last Admin: 03/02/18 17:14 Dose: 100 mg Enoxaparin Sodium (Lovenox) 40 mg SC DAILY [facility] Last Admin: 03/02/18 10:00 Dose: Not Given Ferric Sodium Gluconate Complex (Ferrlecit) 125 mg IVPB DAILY [facility] Stop: 03/06/18 10:01 Last Admin: 03/02/18 10:00 Dose: Not Given Ceftriaxone Sodium (Rocephin Iv 1 Gm Duplex) 50 mls @ 100 mls/hr IVPB Q12H [facility] PRN Reason: Protocol Last Admin: 03/03/18 00:18 Dose: 100 mls/hr Insulin Aspart (Novolog) 0 unit SC ACHS [facility] PRN Reason: Protocol Last Admin: 03/03/18 07:39 Dose: Not Given Insulin Detemir (Levemir) 25 unit SC HS [facility] Last Admin: 03/02/18 21:48 Dose: 25 unit Losartan Potassium (Cozaar) 100 mg PO DAILY [facility] Last Admin: 03/02/18 10:00 Dose: Not Given Metformin HCl (Glucophage) 500 mg PO ACB [facility] Last Admin: 03/03/18 07:37 Dose: 500 mg Metoprolol Succinate (Toprol Xl) 100 mg PO DAILY [facility] Last Admin: 03/02/18 10:00 Dose: Not Given Mirtazapine (Remeron) 7.5 mg PO HS [facility] Last Admin: 03/02/18 21:48 Dose: 7.5 mg Pantoprazole Sodium (Protonix Ec Tab) 40 mg PO DAILY [facility] Last Admin: 03/02/18 10:00 Dose: Not Given Rosuvastatin Calcium (Crestor) 10 mg PO HS [facility] Last Admin: 03/02/18 21:48 Dose: 10 mg - Labs Labs: 02/28/18 07:36 03/01/18 16:36 PT 11.4 SECONDS (9.7-12.2) 03/02/18 07:00 INR 1.0 03/02/18 07:00 APTT 31 SECONDS (21-34) 03/02/18 07:00 Assessment and Plan (1) Chest pain Status: Acute (2) CAD (coronary artery disease) Status: Chronic (3) Hyperlipemia Status: Chronic (4) Hypertension Status: Chronic Attending/Attestation - Attestation I have personally seen and examined this patient.: Yes I have fully participated in the care of the patient.: Yes I have reviewed all pertinent clinical information, including history, physical exam and plan: Yes Notes (Text): 03/03/18 08:02 stress test - siginificant TID suggestive of triple vessel CAD will discuss with family regarding further evaluation considering limited activity at baseline
--- NOTE | 2018-03-02 12:28 | PN ---
DATE: 02/28/2018 SUBJECTIVE: The patient is an 82-year-old female. The patient was seen and examined at bedside on 02/28/2018, and looking comfortable. No nausea, vomiting, or diarrhea. No hematuria or hematochezia. No swelling of the legs. No chest pain or palpitation. No fever. No chills. PHYSICAL EXAMINATION: VITAL SIGNS: Temperature 98.1, pulse 62, blood pressure 137/58, respiratory rate 20. HEENT: Head: Normocephalic and atraumatic. Eyes: PERRLA. Extraocular muscles intact. Conjunctivae clear. Nose patent. Mucous membranes moist. NECK: Supple. No carotid bruits. No JVD or thyromegaly. CHEST: Bilaterally symmetrical. HEART: S1 and S2 positive. LUNGS: Clear to auscultation. ABDOMEN: Soft. Bowel sounds positive. No organomegaly. EXTREMITIES: No edema, no cyanosis. NEUROLOGICAL: The patient is awake, alert; follows simple commands. MEDICATIONS: Aspirin, Colace, Cozaar, Crestor, Fioricet, metformin, Levemir, Lovenox, Norvasc, Plavix, Protonix, Remeron, Rocephin, metoprolol. LABORATORY DATA: White blood cells 4.9, hemoglobin 11.9, hematocrit 36.2, platelets 225. Sodium 144, potassium 3.7, BUN 15, creatinine 0.6, glucose 124. ASSESSMENT AND PLAN: Mrs. Romana Woodall is an 82-year-old lady with history of leukopenia, improved; hypokalemia, replaced, potassium, replaced; hyperglycemia; glucosuria; hematuria; urinary tract infection; has history of Alzheimer's; chronic obstructive pulmonary disease; coronary artery disease with stent placement, in need of coronary artery bypass graft; mitral valve prolapse; hypertension; dyslipidemia, depression; arthritis, cerebrovascular accident with left-sided hemiparesis; diabetes mellitus type 2, came into [facility] with chest pain and diaphoresis, and now has urinary tract infection. Urine cultures reported positive Escherichia coli. White blood cells more than 100,000. The patient is incontinent of urine as per staff and family. Urine obtained by straight catheterization as per staff, started on ceftriaxone. The patient has surgical history of left heart catheterization showing left mainstem disease, 3-vessel disease, and class II mitral valve regurgitation. Infectious Disease consult called, appreciated input. Pancultures done. Continue Rocephin. Labs ordered. Abdominal pain stable. Chest pain. Troponin x3 is negative. Cardiology is on the case. Dementia is stable. Cerebrovascular accident is old, hemiparesis. Diabetes is chronic. We will continue present treatment and repeat labs. Discussion done with the car body designer. Tanisha Conner MD
[2018-03-02] MEDS: Insulin Detemir 100 units/ml Vial (Levemir) SC SCH (21:48)
--- NOTE | 2018-03-02 23:37 | CP.PCM.PN ---
Subjective - Date & Time of Evaluation Date of Evaluation: 03/02/18 Time of Evaluation: 23:36 - Subjective Subjective: CHIEF COMPLAINTS TODAY : AFEBRILE, LETHARGIC AROUSABLE. DENIES SOB/OR CHEST PAIN ROS. HEENT : N. Resp : No cough, wheezing ,pleuritic CP ,or hemoptysis Cardio : No anginal CP, PND, orthopnea, palpitation GI : No abd.pain, n/v ,diarrhea or GI bleeding . P[employer] HE[employer] W[employer]DER : No headache, vertigo, focal deficit. Musculoskel : No joint swelling , Derm : No rash Psych : Normal affect. Ext : No swelling ,calf pain PE. Pt. is awake in no distress. WEAK V.S As noted in the chart Head ,ear nose,throat and eyes : Normal. Neck : Supple with normal carotids. Lungs: Clear air entry. Heart : S1 & S2 normal with S4. No murmur. Abd : Soft non tender with normal bowel sounds. Neuro : Moves all ext. with no localized deficit. Ext : No edema with intact pulses.Non tender calves Derm : No rashes or decubitus ulcer. LABS/RADIOLOGY: REVIEWED URINE CULTURE +VE E .COLI s-cefepime R- CIPRO Objective - Vital Signs/Intake and Output Vital Signs (last 24 hours): Temp Pulse Resp BP Pulse Ox 97.6 F 70 20 130/76 97 03/02/18 15:36 03/02/18 19:28 03/02/18 15:36 03/02/18 15:36 03/02/18 15:36 Intake and Output: 03/02/18 03/03/18 18:59 06:59 Intake Total 80 Balance 80 - Medications Medications: Current Medications Amlodipine Besylate (Norvasc) 10 mg PO DAILY [facility] Last Admin: 03/02/18 10:00 Dose: Not Given Aspirin (Aspirin Chewable) 81 mg PO DAILY [facility] Last Admin: 03/02/18 10:00 Dose: Not Given Clopidogrel Bisulfate (Plavix) 75 mg PO DAILY [facility] Last Admin: 03/02/18 10:00 Dose: Not Given Docusate Sodium (Colace) 100 mg PO BID [facility] Last Admin: 03/02/18 17:14 Dose: 100 mg Enoxaparin Sodium (Lovenox) 40 mg SC DAILY [facility] Last Admin: 03/02/18 10:00 Dose: Not Given Ferric Sodium Gluconate Complex (Ferrlecit) 125 mg IVPB DAILY [facility] Stop: 03/06/18 10:01 Last Admin: 03/02/18 10:00 Dose: Not Given Ceftriaxone Sodium (Rocephin Iv 1 Gm Duplex) 50 mls @ 100 mls/hr IVPB Q12H [facility] PRN Reason: Protocol Last Admin: 03/02/18 12:31 Dose: 100 mls/hr Insulin Aspart (Novolog) 0 unit SC ACHS [facility] PRN Reason: Protocol Last Admin: 03/02/18 21:13 Dose: Not Given Insulin Detemir (Levemir) 25 unit SC [facility] Last Admin: 03/02/18 21:48 Dose: 25 unit Losartan Potassium (Cozaar) 100 mg PO DAILY [facility] Last Admin: 03/02/18 10:00 Dose: Not Given Metformin HCl (Glucophage) 500 mg PO ACB [facility] Last Admin: 03/02/18 08:03 Dose: Not Given Metoprolol Succinate (Toprol Xl) 100 mg PO DAILY [facility] Last Admin: 03/02/18 10:00 Dose: Not Given Mirtazapine (Remeron) 7.5 mg PO HS [facility] Last Admin: 03/02/18 21:48 Dose: 7.5 mg Pantoprazole Sodium (Protonix Ec Tab) 40 mg PO DAILY [facility] Last Admin: 03/02/18 10:00 Dose: Not Given Rosuvastatin Calcium (Crestor) 10 mg PO HS [facility] Last Admin: 03/02/18 21:48 Dose: 10 mg - Labs Labs: 02/28/18 07:36 03/01/18 16:36 PT 11.4 SECONDS (9.7-12.2) 03/02/18 07:00 INR 1.0 03/02/18 07:00 APTT 31 SECONDS (21-34) 03/02/18 07:00 Assessment and Plan (1) UTI (lower urinary tract infection) Status: Acute (2) Abdominal pain Status: Acute (3) Chest pain Status: Acute (4) Alzheimers disease Status: Acute (5) CVA, old, hemiparesis Status: Acute (6) Dementia Status: Acute (7) Diabetes mellitus Status: Chronic - Assessment and Plan (Free Text) Assessment: IMPRESSION; - UTI +VE E COLI. - CHEST PAIN/ANGINA. -CVA-OLD LT HEMIPERESIS. - DEMENTIA. - DIABETES- MELLITUS. PLAN; CONTINUE IV ROCEPHIN 1GM IVPB Q31TTOR.02/27/18 PT INCONTINANT OF URINE PER RN. Continue with aspirin, plavix, statin, and beta-ricky. Continue medical therapy PER CARDIOLOGY Nuclear stress test/ FINDINGS NOTED. DISCUSSED W FAMILY AT BED SIDE.
[2018-03-03] MEDS: cefTRIAXone IV 1 gm in Dextros 50 ML IVPB SCH ×2 (00:18→12:14)
[2018-03-03] MEDS: (Novolog) Insulin Aspart, Recombinant 100 u/ml 10 ml vial SC SCH ×4 (07:39→21:59)
[2018-03-03] MEDS: Enoxaparin 40 mg Syringe SC SCH (08:59)
[2018-03-03] MEDS: Pantoprazole 40 mg EC Tab PO SCH (09:00)
[2018-03-03] MEDS: Metoprolol Succinate 100 mg XL Tab PO SCH (09:00)
[2018-03-03] MEDS: Ferric Sodium Gluconat Complex 62.5 mg/5 ml Vial IVPB SCH (10:15)
--- NOTE | 2018-03-03 12:29 | CP.PCM.PN ---
<OliverEmanuel - Last Filed: 03/03/18 15:08> Subjective - Date & Time of Evaluation Date of Evaluation: 03/03/18 Time of Evaluation: 11:25 - Subjective Subjective: Cardiology Progress Note Patient seen and examined at bedside. Patient denies any chest pain, dyspnea or palpitations. Patient is awake and answers questions appropriately, but does appear to be somewhat lethargic. Otherwise, chart review indicates no events overnight. Objective - Vital Signs/Intake and Output Vital Signs (last 24 hours): Temp Pulse Resp BP Pulse Ox 98.3 F 65 20 125/70 97 03/03/18 08:27 03/03/18 11:57 03/03/18 08:27 03/03/18 08:27 03/03/18 08:27 - Medications Medications: Current Medications Amlodipine Besylate (Norvasc) 10 mg PO DAILY [facility] Last Admin: 03/03/18 09:00 Dose: 10 mg Aspirin (Aspirin Chewable) 81 mg PO DAILY [facility] Last Admin: 03/03/18 08:59 Dose: 81 mg Clopidogrel Bisulfate (Plavix) 75 mg PO DAILY [facility] Last Admin: 03/03/18 09:00 Dose: 75 mg Docusate Sodium (Colace) 100 mg PO BID [facility] Last Admin: 03/03/18 09:00 Dose: 100 mg Enoxaparin Sodium (Lovenox) 40 mg SC DAILY [facility] Last Admin: 03/03/18 08:59 Dose: 40 mg Ferric Sodium Gluconate Complex (Ferrlecit) 125 mg IVPB DAILY [facility] Stop: 03/06/18 10:01 Last Admin: 03/03/18 10:15 Dose: 125 mg Ceftriaxone Sodium (Rocephin Iv 1 Gm Duplex) 50 mls @ 100 mls/hr IVPB Q12H [facility] PRN Reason: Protocol Last Admin: 03/03/18 12:14 Dose: 100 mls/hr Insulin Aspart (Novolog) 0 unit SC ACHS [facility] PRN Reason: Protocol Last Admin: 03/03/18 07:39 Dose: Not Given Insulin Detemir (Levemir) 25 unit SC HS [facility] Last Admin: 03/02/18 21:48 Dose: 25 unit Losartan Potassium (Cozaar) 100 mg PO DAILY [facility] Last Admin: 03/03/18 09:00 Dose: 100 mg Metformin HCl (Glucophage) 500 mg PO ACB [facility] Last Admin: 03/03/18 07:37 Dose: 500 mg Metoprolol Succinate (Toprol Xl) 100 mg PO DAILY [facility] Last Admin: 03/03/18 09:00 Dose: 100 mg Mirtazapine (Remeron) 7.5 mg PO [facility] Last Admin: 03/02/18 21:48 Dose: 7.5 mg Pantoprazole Sodium (Protonix Ec Tab) 40 mg PO DAILY [facility] Last Admin: 03/03/18 09:00 Dose: 40 mg Rosuvastatin Calcium (Crestor) 10 mg PO HS [facility] Last Admin: 03/02/18 21:48 Dose: 10 mg - Labs Labs: 02/28/18 07:36 03/01/18 16:36 PT 11.4 SECONDS (9.7-12.2) 03/02/18 07:00 INR 1.0 03/02/18 07:00 APTT 31 SECONDS (21-34) 03/02/18 07:00 - Constitutional Appears: Non-toxic, No Acute Distress - Head Exam Head Exam: ATRAUMATIC, NORMOCEPHALIC - Eye Exam Eye Exam: EOMI, Normal appearance - ENT Exam ENT Exam: Mucous Membranes Moist - Neck Exam Neck Exam: Normal Inspection - Respiratory Exam Respiratory Exam: Clear to Ausculation Bilateral, NORMAL BREATHING PATTERN. absent: Accessory Muscle Use, Rales - Cardiovascular Exam Cardiovascular Exam: RRR, +S1, +S2 - GI/Abdominal Exam GI & Abdominal Exam: Normal Bowel Sounds. absent: Rebound - Neurological Exam Neurological Exam: Awake - Psychiatric Exam Psychiatric exam: Normal Affect, Normal Mood - Skin Skin Exam: Dry, Intact, Normal Color, Warm Assessment and Plan - Assessment and Plan (Free Text) Assessment: 82 year old female with CAD warranting CABG that presented with chest pain. EKG showed no active ischemia, troponins (-) x 3, echocardiogram showed moderate concentric LVH, estimated EF of 67.5%, transmitral doppler flow pattern of Grade II-pseudonormal filling dynamics, left atrial pressure mildly elevated, trace mitral regurgitation, mild tricuspid regurgitation, RVSP at 38 mmHg, mild pulmonary hypertension, normal aortic root size but with milder sclerocalcific changes. EKG showed LVH with strain and T-wave inversions in the anteriolateral leads. Plan: Continue with aspirin, plavix, statin, and beta-ricky. Continue with maximal medical therapy, nuclear stress test shows Transient Ischemic Dilatation suggestive of multivessel disease. Important to note patient has baseline dementia and has poor functional capacity. Dr. Hennessy to discuss findings and further recommendations with family. 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 Case reviewed and discussed with Dr. Hennessy, attending physician. <Luis Fernando Hennessy - Last Filed: 03/03/18 15:38> Objective - Vital Signs/Intake and Output Vital Signs (last 24 hours): Temp Pulse Resp BP Pulse Ox 98.5 F 65 20 159/72 H 97 03/03/18 12:52 03/03/18 12:52 03/03/18 12:52 03/03/18 12:52 03/03/18 08:27 Intake and Output: 03/03/18 03/03/18 06:59 18:59 Intake Total 180 Balance 180 - Medications Medications: Current Medications Amlodipine Besylate (Norvasc) 10 mg PO DAILY [facility] Last Admin: 03/03/18 09:00 Dose: 10 mg Aspirin (Aspirin Chewable) 81 mg PO DAILY [facility] Last Admin: 03/03/18 08:59 Dose: 81 mg Clopidogrel Bisulfate (Plavix) 75 mg PO DAILY [facility] Last Admin: 03/03/18 09:00 Dose: 75 mg Docusate Sodium (Colace) 100 mg PO BID [facility] Last Admin: 03/03/18 09:00 Dose: 100 mg Enoxaparin Sodium (Lovenox) 40 mg SC DAILY [facility] Last Admin: 03/03/18 08:59 Dose: 40 mg Ferric Sodium Gluconate Complex (Ferrlecit) 125 mg IVPB DAILY [facility] Stop: 03/06/18 10:01 Last Admin: 03/03/18 10:15 Dose: 125 mg Ceftriaxone Sodium (Rocephin Iv 1 Gm Duplex) 50 mls @ 100 mls/hr IVPB Q12H [facility] PRN Reason: Protocol Last Admin: 03/03/18 12:14 Dose: 100 mls/hr Insulin Aspart (Novolog) 0 unit SC ACHS [facility] PRN Reason: Protocol Last Admin: 03/03/18 12:00 Dose: 2 unit Insulin Detemir (Levemir) 25 unit SC HS [facility] Last Admin: 03/02/18 21:48 Dose: 25 unit Losartan Potassium (Cozaar) 100 mg PO DAILY [facility] Last Admin: 03/03/18 09:00 Dose: 100 mg Metformin HCl (Glucophage) 500 mg PO ACB [facility] Last Admin: 03/03/18 07:37 Dose: 500 mg Metoprolol Succinate (Toprol Xl) 100 mg PO DAILY [facility] Last Admin: 03/03/18 09:00 Dose: 100 mg Mirtazapine (Remeron) 7.5 mg PO HS [facility] Last Admin: 03/02/18 21:48 Dose: 7.5 mg Pantoprazole Sodium (Protonix Ec Tab) 40 mg PO DAILY [facility] Last Admin: 03/03/18 09:00 Dose: 40 mg Rosuvastatin Calcium (Crestor) 10 mg PO HS [facility] Last Admin: 03/02/18 21:48 Dose: 10 mg - Labs Labs: 02/28/18 07:36 03/01/18 16:36 PT 11.4 SECONDS (9.7-12.2) 03/02/18 07:00 INR 1.0 03/02/18 07:00 APTT 31 SECONDS (21-34) 03/02/18 07:00 Assessment and Plan (1) Chest pain Status: Acute (2) CAD (coronary artery disease) Status: Chronic (3) Hyperlipemia Status: Chronic (4) Hypertension Status: Chronic Attending/Attestation - Attestation I have personally seen and examined this patient.: Yes I have fully participated in the care of the patient.: Yes I have reviewed all pertinent clinical information, including history, physical exam and plan: Yes Notes (Text): 03/03/18 15:37 case and findings of stress test discussed with primary linseed cake trimmer and family due to advanced dementia and limited mobility will cont with conservative medical rx gdmt for cad
--- NOTE | 2018-03-03 16:11 | CARD ---
APPROVED REPORT Protocol: LEXISCAN Test Type: LEXISCAN STRESS Test Indications: CHEST PAIN Target HR: 140 bpm Resting ECG: T wave inversion Resting Heart Rate: 62 bpm Resting Blood Pressure: 128/80mmHg submaximum (85%): 119 bpm TEST SUMMARY PREINFSNHYPERV.08:[id number]/80.0. INFUSIONDOSE 100:300.00.01.063/.0. [id number]/80.0. PROCEDURE Pharmacologic stress testing was performed using 0.4mg per 5ml of regadenoson given intravenously over 7-10 seconds. POST EXERCISE Reason for Termination: Protocol Completed Target HR: No Max HR: 63 bpm 63% of Maximum Predicted HR: 140 bpm Exercise duration: 00:30 min:sec, 0 Stage Exercise capacity: 1.0METs Max Blood Pressure: 128/80mmHg Blood Pressure response to exercise: N/A Heart Rate response to exercise: N/A Chest Pain: No, none Angina index: 0 Arrhythmia: No, none ST Change: Yes, Depression horizontal Deviation: 0 mm EXAM: Myocardial Perfusion STRESS/REST Imaging Protocol The imaging protocol used to acquire images was Stress Tc-99m/rest Tc-99m 1 day Rest Spect myocardial perfusion imaging was performed in supine position 45 minutes following the injection of 32.7 mCi of Tc-99 Myoview. Gated Stress Spect was performed 45 minutes after intravenous 13.0 mCi Tc-99 Myoview injection. The images were gated to evaluate regional wall motion and calculate ventricular ejection fraction.Images were reconstructed using backfilter projection method in short horizontal and verticle long axis. Spect slices were generated. RESTING DATA EDV49.06vlLD3.50L/min ESV11.00mlMyocardial Mass89.00g Av. Heart Rate65.00bpm EF78.00% STRESS DATA EDV61.43tbUJ4.70L/min ESV18.00mlMyocardial Actn727.00g EF70.00% Regional WT score at stress:2.00 Regional WM score at stress:0.00 Summed WT score at stress:22.00 Av. Heart Rate61.00bpmSummed WM score at stress:3.00 Study quality was fair. Left Ventricular size was Normal at Rest and Stress. Lung uptake was Normal. Left Ventricular ejection fraction is 70%. The rest and stress images show normal perfusion, normal contraction and thickening. LV Perfusion 1 TCD/TID: Yes LV Perf. Quant 17 Seg. SSS0.00 17 Seg. SRS0.00 17 Seg. SDS0.00 Stress Defect Extent (% LAD)0.00Rest Defect Extent (% LAD)0.00Rev. Defect Extent (% LAD)0.00 Stress Defect Extent (% LCX)0.00Rest Defect Extent (% LCX)0.00Rev. Defect Extent (% LCX)0.00 Stress Defect Extent (% RCA)0.00Rest Defect Extent (% RCA)0.00Rev. Defect Extent (% RCA)0.00 Stress Defect Extent (% RUSLAN)0.00Rest Defect Extent (% RUSLAN)0.00Rev. Defect Extent (% RUSLAN)0.00 Other Information Quality:Good Overall Exercise Capacity: n/a IMPRESSION Normal Myocardial Perfusion exercise stress study Global LV Function: Normal Left Ventricle LV Size/Shape: The left ventricle is normal size. LV Function:The Ejection Fraction is 60-65%. Regional Wall Motion:There is normal left ventricular wall motion. Conclusion 1. - TID on stress images suggestive of triple vessel CAD 2. - consider further evaluation if clinically indicated
[2018-03-03 16:57] LABS: BASO % 0.5 % (0.0-2.0); EOS # 0.1 K/uL (0.0-0.7); EOS % 1.9 % (0.0-4.0); HEMOGLOBIN 10.4 g/dL (11.0-16.0); LYMPH # 1.7 K/uL (1.0-4.3); LYMPH % 40.5 % (20.0-40.0); MEAN CELL VOLUME 81.9 fL (81.0-99.0); MEAN CORPUSCULAR HEMOGLOBIN 27.4 pg (27.0-31.0); MEAN CORPUSCULAR HGB CONC 33.5 g/dL (33.0-37.0); MEAN PLATELET VOLUME 9.6 fL (7.2-11.7); MONO # 0.3 K/uL (0.0-0.8); MONO % 8.2 % (0.0-10.0); NEUT # 2.1 K/uL (1.8-7.0); NEUT % 48.9 % (50.0-75.0); NRBC % 0.1 % (0.0-2.0); RBC 3.79 Mil/uL (3.80-5.20); RED CELL DISTRIBUTION WIDTH 14.2 % (11.5-14.5); WHITE BLOOD COUNT 4.2 K/uL (4.8-10.8)
[2018-03-03 17:26] LABS: BLOOD UREA NITROGEN 31 mg/dL (7-17); CALCIUM 8.6 mg/dl (8.6-10.4); GFR AFRICAN-AMERICAN > 60; GFR NON-AFRICAN AMERICAN > 60
[2018-03-03] MEDS: Insulin Detemir 100 units/ml Vial (Levemir) SC SCH (22:24)
--- NOTE | 2018-03-03 22:33 | CP.PCM.PN ---
Subjective - Date & Time of Evaluation Date of Evaluation: 03/03/18 Time of Evaluation: 22:33 - Subjective Subjective: CHIEF COMPLAINTS TODAY : AFEBRILE, MORE AWAKE /RESPONSIVE. SITTING UP. DENIES CHEST PAIN/OR SOB. ROS. HEENT : N. Resp : No cough, wheezing ,pleuritic CP ,or hemoptysis Cardio : No anginal CP, PND, orthopnea, palpitation GI : No abd.pain, n/v ,diarrhea or GI bleeding . CVOR NURSE : No headache, vertigo, focal deficit. Musculoskel : No joint swelling , Derm : No rash Psych : Normal affect. Ext : No swelling ,calf pain PE. Pt. is awake in no distress. WEAK V.S As noted in the chart Head ,ear nose,throat and eyes : Normal. Neck : Supple with normal carotids. Lungs: Clear air entry. Heart : S1 & S2 normal with S4. No murmur. Abd : Soft non tender with normal bowel sounds. Neuro : Moves all ext. with no localized deficit. Ext : No edema with intact pulses.Non tender calves Derm : No rashes or decubitus ulcer. LABS/RADIOLOGY: REVIEWED URINE CULTURE +VE E .COLI s-cefepime R- CIPRO Objective - Vital Signs/Intake and Output Vital Signs (last 24 hours): Temp Pulse Resp BP Pulse Ox 98.4 F 63 20 118/73 98 03/03/18 15:29 03/03/18 15:29 03/03/18 15:29 03/03/18 15:29 03/03/18 15:29 Intake and Output: 03/03/18 03/04/18 18:59 06:59 Intake Total 180 Balance 180 - Medications Medications: Current Medications Amlodipine Besylate (Norvasc) 10 mg PO DAILY [facility] Last Admin: 03/03/18 09:00 Dose: 10 mg Aspirin (Aspirin Chewable) 81 mg PO DAILY [facility] Last Admin: 03/03/18 08:59 Dose: 81 mg Clopidogrel Bisulfate (Plavix) 75 mg PO DAILY [facility] Last Admin: 03/03/18 09:00 Dose: 75 mg Docusate Sodium (Colace) 100 mg PO BID [facility] Last Admin: 03/03/18 17:53 Dose: 100 mg Enoxaparin Sodium (Lovenox) 40 mg SC DAILY [facility] Last Admin: 03/03/18 08:59 Dose: 40 mg Ferric Sodium Gluconate Complex (Ferrlecit) 125 mg IVPB DAILY [facility] Stop: 03/06/18 10:01 Last Admin: 03/03/18 10:15 Dose: 125 mg Ceftriaxone Sodium (Rocephin Iv 1 Gm Duplex) 50 mls @ 100 mls/hr IVPB Q12H [facility] PRN Reason: Protocol Last Admin: 03/03/18 12:14 Dose: 100 mls/hr Insulin Aspart (Novolog) 0 unit SC ACHS [facility] PRN Reason: Protocol Last Admin: 03/03/18 21:59 Dose: Not Given Insulin Detemir (Levemir) 25 unit SC HS [facility] Last Admin: 03/03/18 22:24 Dose: 25 unit Losartan Potassium (Cozaar) 100 mg PO DAILY [facility] Last Admin: 03/03/18 09:00 Dose: 100 mg Metformin HCl (Glucophage) 500 mg PO ACB [facility] Last Admin: 03/03/18 07:37 Dose: 500 mg Metoprolol Succinate (Toprol Xl) 100 mg PO DAILY [facility] Last Admin: 03/03/18 09:00 Dose: 100 mg Mirtazapine (Remeron) 7.5 mg PO HS [facility] Last Admin: 03/03/18 22:23 Dose: 7.5 mg Pantoprazole Sodium (Protonix Ec Tab) 40 mg PO DAILY [facility] Last Admin: 03/03/18 09:00 Dose: 40 mg Rosuvastatin Calcium (Crestor) 10 mg PO HS [facility] Last Admin: 03/03/18 22:23 Dose: 10 mg - Labs Labs: 03/03/18 16:49 03/03/18 16:49 PT 11.4 SECONDS (9.7-12.2) 03/02/18 07:00 INR 1.0 03/02/18 07:00 APTT 31 SECONDS (21-34) 03/02/18 07:00 Assessment and Plan (1) UTI (lower urinary tract infection) Status: Acute (2) Abdominal pain Status: Acute (3) Chest pain Status: Acute (4) Alzheimers disease Status: Acute (5) CVA, old, hemiparesis Status: Acute (6) Dementia Status: Acute (7) Diabetes mellitus Status: Chronic - Assessment and Plan (Free Text) Assessment: IMPRESSION; - UTI +VE E COLI. - CHEST PAIN/ANGINA. -CVA-OLD LT HEMIPERESIS. - DEMENTIA. - DIABETES- MELLITUS. PLAN; CONTINUE IV ROCEPHIN 1GM IVPB [id number].02/27/18 PT INCONTINANT OF URINE PER RN. F/U REPEAT CLEAN CATCH UA/URINE CULTURE PT ON aspirin, plavix, statin, and beta-ricky. Continue medical therapy PER CARDIOLOGY Nuclear stress test/ FINDINGS NOTED.- ABNORMAL DISCUSSED W DAUGHTER AT BED SIDE.
[2018-03-04] MEDS: cefTRIAXone IV 1 gm in Dextros 50 ML IVPB SCH ×2 (00:30→13:30)
[2018-03-04 04:56] VITALS: O2SAT 97
[2018-03-04 07:54] VITALS: TEMP 98.6
[2018-03-04] MEDS: (Novolog) Insulin Aspart, Recombinant 100 u/ml 10 ml vial SC SCH ×2 (08:30→12:18)
[2018-03-04] MEDS: Pantoprazole 40 mg EC Tab PO SCH (10:56)
[2018-03-04] MEDS: Metoprolol Succinate 100 mg XL Tab PO SCH (10:57)
[2018-03-04] MEDS: Ferric Sodium Gluconat Complex 62.5 mg/5 ml Vial IVPB SCH (10:58)
--- NOTE | 2018-03-04 12:03 | CP.PCM.PN ---
Subjective - Date & Time of Evaluation Date of Evaluation: 03/04/18 Time of Evaluation: 10:40 - Subjective Subjective: Cardiology Progress Note Patient seen and examined at bedside. Patient denies any chest pain, dyspnea, or palpitations. Nurse reports no events overnight. Objective - Vital Signs/Intake and Output Vital Signs (last 24 hours): Temp Pulse Resp BP Pulse Ox 98.6 F 64 18 125/73 97 03/04/18 07:35 03/04/18 07:35 03/04/18 07:35 03/04/18 07:35 03/04/18 07:35 Intake and Output: 03/04/18 03/04/18 06:59 18:59 Intake Total 150 Balance 150 - Medications Medications: Current Medications Amlodipine Besylate (Norvasc) 10 mg PO DAILY [facility] Last Admin: 03/04/18 10:57 Dose: 10 mg Aspirin (Aspirin Chewable) 81 mg PO DAILY [facility] Last Admin: 03/03/18 08:59 Dose: 81 mg Clopidogrel Bisulfate (Plavix) 75 mg PO DAILY [facility] Last Admin: 03/04/18 10:57 Dose: 75 mg Docusate Sodium (Colace) 100 mg PO BID [facility] Last Admin: 03/04/18 10:57 Dose: 100 mg Ferric Sodium Gluconate Complex (Ferrlecit) 125 mg IVPB DAILY [facility] Stop: 03/06/18 10:01 Last Admin: 03/04/18 10:58 Dose: 125 mg Ceftriaxone Sodium (Rocephin Iv 1 Gm Duplex) 50 mls @ 100 mls/hr IVPB Q12H [facility] PRN Reason: Protocol Last Admin: 03/04/18 00:30 Dose: 100 mls/hr Insulin Aspart (Novolog) 0 unit SC ACHS [facility] PRN Reason: Protocol Last Admin: 03/04/18 08:30 Dose: Not Given Insulin Detemir (Levemir) 25 unit SC HS [facility] Last Admin: 03/03/18 22:24 Dose: 25 unit Losartan Potassium (Cozaar) 100 mg PO DAILY [facility] Last Admin: 03/04/18 10:58 Dose: 100 mg Metformin HCl (Glucophage) 500 mg PO ACB [facility] Last Admin: 03/04/18 08:30 Dose: 500 mg Metoprolol Succinate (Toprol Xl) 100 mg PO DAILY [facility] Last Admin: 03/04/18 10:57 Dose: 100 mg Mirtazapine (Remeron) 7.5 mg PO [facility] Last Admin: 03/03/18 22:23 Dose: 7.5 mg Pantoprazole Sodium (Protonix Ec Tab) 40 mg PO DAILY [facility] Last Admin: 03/04/18 10:56 Dose: 40 mg Rosuvastatin Calcium (Crestor) 10 mg PO HS [facility] Last Admin: 03/03/18 22:23 Dose: 10 mg - Labs Labs: 03/03/18 16:49 03/03/18 16:49 PT 11.4 SECONDS (9.7-12.2) 03/02/18 07:00 INR 1.0 03/02/18 07:00 APTT 31 SECONDS (21-34) 03/02/18 07:00 - Constitutional Appears: Well, Non-toxic - Head Exam Head Exam: ATRAUMATIC, NORMOCEPHALIC - Eye Exam Eye Exam: EOMI, Normal appearance - ENT Exam ENT Exam: Mucous Membranes Moist - Neck Exam Neck Exam: Normal Inspection - Respiratory Exam Respiratory Exam: Clear to Ausculation Bilateral, NORMAL BREATHING PATTERN. absent: Accessory Muscle Use - Cardiovascular Exam Cardiovascular Exam: RRR, +S1, +S2 - GI/Abdominal Exam GI & Abdominal Exam: Soft, Normal Bowel Sounds - Extremities Exam Extremities Exam: Normal Inspection. absent: Calf Tenderness - Neurological Exam Neurological Exam: Awake - Psychiatric Exam Psychiatric exam: Normal Affect, Normal Mood - Skin Skin Exam: Dry, Intact, Normal Color, Warm Assessment and Plan - Assessment and Plan (Free Text) Assessment: 82 year old female with CAD warranting CABG that presented with chest pain. EKG showed no active ischemia, troponins (-) x 3, echocardiogram showed moderate concentric LVH, estimated EF of 67.5%, transmitral doppler flow pattern of Grade II-pseudonormal filling dynamics, left atrial pressure mildly elevated, trace mitral regurgitation, mild tricuspid regurgitation, RVSP at 38 mmHg, mild pulmonary hypertension, normal aortic root size but with milder sclerocalcific changes. EKG showed LVH with strain and T-wave inversions in the anteriolateral leads. Plan: 1) Hypertension - Losartan 100 mg PO daily - Amlodipine 10 mg PO daily 2) CAD - Aspirin 81 mg - Clopidogrel 75 mg - Rosuvastatin 10 mg PO HS - Metoprolol Succinate 100 mg PO daily - Nuclear stress test showed Transient Ischemic Dilatation suggestive of multivessel disease. The significance of these findings were discussed with multiple family members, and the patient's primary dye colorist dyer (Dr. Joseph) in great detail. At this point in time, we will continue with guideline-directed medical therapy (for CAD). Case reviewed and discussed with Dr. Hennessy, attending physician.
[2018-03-04] MEDS: Enoxaparin 40 mg Syringe SC SCH (12:11)
--- NOTE | 2018-03-04 14:09 | PN ---
DATE: 03/03/2018 SUBJECTIVE: The patient is an 82-year-old female. The patient is seen and examined on the bedside, looking comfortable. No nausea, vomiting, or diarrhea. No hematuria or hematochezia. No headache, no dizziness. No complaints. No event overnight. PHYSICAL EXAMINATION: VITAL SIGNS: Temperature 98.3, pulse 65, respiratory rate 20, blood pressure 125/70, pulse oximetry 97%. HEENT: Head: Normocephalic and atraumatic. Eyes: PERRLA. Extraocular muscles intact. Conjunctivae clear. Nose patent. Mucous membranes moist. NECK: Supple. No carotid bruits. No JVD or thyromegaly. CHEST: Bilaterally symmetrical. HEART: S1 and S2 positive. LUNGS: Clear to auscultation. ABDOMEN: Soft. Bowel sounds positive. No organomegaly. EXTREMITIES: No edema, no cyanosis. NEUROLOGICAL: The patient is awake, alert; follows simple commands. MEDICATIONS: Norvasc, Aspirin, Fioricet, Colace, Lovenox, Rocephin, Levemir, Cozaar, Glucophage, Toprol, Remeron, Protonix, Crestor. LABORATORY DATA: White blood cells 4.9, hemoglobin 11.9, hematocrit 36.2, platelets 225. Sodium 140, potassium 3.8, BUN 39, creatinine 0.7, glucose 237. ASSESSMENT AND PLAN: Mrs. Romana Woodall is an 82-year-old lady with uncontrolled diabetes mellitus, came with chest pain, coronary artery disease, hyperlipidemia, hypertension. Dr. Luis Fernando Hennessy had discussion done about the patient's stress test with primary collar cutter, Dr. Arizmendi and family due to the advanced dementia and limited mobility. We will continue with conservative medical treatment as per collar cutter. The patient has history of coronary artery bypass graft in the past. Three sets of troponin were negative. Echocardiography was done. History of pulmonary hypertension. Continue aspirin, Plavix, statin, and beta-blockers. Continue with maximal medical treatment. It looks like multivessel disease. Gastrointestinal and deep venous thrombosis prophylaxis. Repeat labs. We will follow up. Tanisha Conner MD [facility] # [id number]
[2018-03-04 15:52] VITALS: BP 123/68; PULSE 63; RESP 20
--- NOTE | 2018-03-05 05:45 | PN ---
DATE: 03/02/2018 SUBJECTIVE: The patient was seen and examined at bedside on 03/02/2018 and looking comfortable. nuclear stress test without any complaints. The patient is awake and alert. No fever, no chills. No nausea, vomiting, or diarrhea. PHYSICAL EXAMINATION: VITAL SIGNS: Temperature 97.7, pulse 59, respiratory rate 20, blood pressure 110/62, pulse oximetry 98%. HEENT: Head: Normocephalic, atraumatic. Eyes: PERRLA. Extraocular muscles intact. Conjunctivae clear. Nose patent. Mucous membranes moist. NECK: Supple. No carotid bruits. No JVD or thyromegaly. CHEST: Bilaterally symmetrical. HEART: S1 and S2 positive. LUNGS: Clear to auscultation. ABDOMEN: Soft. Bowel sounds present. No organomegaly. EXTREMITIES: No edema. No cyanosis. NEUROLOGIC: The patient is awake, alert, following simple commands. MEDICATIONS: Norvasc, aspirin, Plavix, Colace, Lovenox, ferric acid, ceftriaxone, insulin, Glucophage, Toprol, Remeron, Protonix, Crestor. LABORATORY DATA: White blood cells 4.9, hemoglobin 11.9, hematocrit 36.2, platelets 225. Sodium 140, potassium 3.8, BUN 37, creatinine 0.7, glucose 237. ASSESSMENT AND PLAN: Mrs. Talisha Avendano is an 82-year-old lady with coronary artery disease, came with chest pain. EKG shows no active ischemia. Troponin x3 is negative. Echocardiography shows moderate concentric left ventricular hypertrophy, mild pulmonary hypertension, history of stroke, hemiplegia, urinary tract infection, got antibiotics. According to Cardiology, continue aspirin, Plavix, statin, beta-blockers. Continue maximum medical treatment. Nuclear stress test shows positive ischemic dilatation of 1.5 cm consistent with clinically significant coronary artery disease. According to Dr. Luis Fernando Hennessy, he will discuss with the family for catheterization. The patient has grader patrol as outpatient. Meanwhile, we will continue present treatment. Continue antibiotics. We will follow up. Tanisha Conner MD
== END 2018-03-04 17:24 | DRG 690 ==
LOC: C.ER 11:22 → C.9E 18:31 → C.6T 19:42 → OBSVTOIN 02-27 12:46 → C.6T 02-27 18:14
PROVIDERS: ADMIT Internal Medicine; ATTEND Internal Medicine
DX: N39.0 Urinary tract infection, site not specified (principal); I69.254 Hemiplegia and hemiparesis following other nontraumatic intracranial hemorrhage affecting left non-dominant side; I25.119 Atherosclerotic heart disease of native coronary artery with unspecified angina pectoris; I10 Essential (primary) hypertension; G47.00 Insomnia, unspecified; G30.9 Alzheimer's disease, unspecified; F32.9 Major depressive disorder, single episode, unspecified; J44.9 Chronic obstructive pulmonary disease, unspecified; K59.00 Constipation, unspecified; Z95.5 Presence of coronary angioplasty implant and graft; R32 Unspecified urinary incontinence; I34.0 Nonrheumatic mitral (valve) insufficiency; F02.80 Dementia in other diseases classified elsewhere, unspecified severity, without behavioral disturbance, psychotic disturbance, mood disturbance, and anxiety; E78.5 Hyperlipidemia, unspecified; E87.6 Hypokalemia; E61.1 Iron deficiency; E11.65 Type 2 diabetes mellitus with hyperglycemia; I27.20 Pulmonary hypertension, unspecified; B96.20 Unspecified Escherichia coli [E. coli] as the cause of diseases classified elsewhere

== ENCOUNTER 2018-07-03 15:45 | Emergency (ER) | payer MEDICARE, OTHER ==
[2018-07-03 15:46] VITALS: BMI 25.7
[2018-07-03 16:02] VITALS: BP 147/55; PULSE 66; RESP 18; TEMP 98.5; O2SAT 100
--- NOTE | 2018-07-03 16:31 | C.PDOC ---
History Of Present Illness 82 year old female is brought into the emergency department by her daughter with complaints of a decreased mental status, as well as a measured blood sugar of 40 approximately 8 hours SENIOR PRINCIPAL ARCHITECT. Patient's daughter reports that she gave the patient food and juice which resulted in her mental status returning back to baseline. Patient's daughter reports that the patient goes to an adult daycare from 11AM to 6:30PM during the week, and she is unsure of what her diet consists of or what her regular insulin administration is. Daughter states that she gives the patient Detemir 25 HS in the morning, where her usual finger- stick are 40-60, and her mental status rarely changes. In the afternoon and evenings, her finger-sticks are 100-250. Time Seen by Provider: 07/03/18 15:59 Chief Complaint (Nursing): Medical Clearance History Per: Patient History/Exam Limitations: no limitations Onset/Duration Of Symptoms: Hrs (8) Current Symptoms Are (Timing): Still Present Past Medical History Vital Signs: Last Vital Signs Temp 98.5 F 07/03/18 15:50 Pulse 66 07/03/18 15:50 Resp 18 07/03/18 15:50 BP 147/55 L 07/03/18 15:50 Pulse Ox 100 07/03/18 18:30 - Medical History PMH: Alzheimer's Disease, Arthritis, CAD, COPD, CVA (affecting left side of body ), Dementia, Depression, Diabetes, HTN, Hypercholesterolemia, Hyperlipidemia, Mitral Valve Prolapse Denies: Chronic Kidney Disease Surgical History: Coronary Stent (x3) Comment Only: Pacemaker (.) - [facility] Procedures CENTRAL VENOUS CATHETER PLACEMENT WITH GUIDANCE (07/16/15) CORONAR ARTERIOGR-2 CATH (05/30/14) ESOPHAGOGASTRODUODENOSCOPY [EGD] W/CLOSED BIOPSY (03/28/13) LEFT HEART CARDIAC CATH (05/30/14) LT HEART ANGIOCARDIOGRAM (05/30/14) Family History: States: No Known Family Hx - Social History Hx Tobacco Use: No Hx Alcohol Use: No Hx Substance Use: No - Immunization History Hx Tetanus Toxoid Vaccination: No Hx Influenza Vaccination: No Hx Pneumococcal Vaccination: No Review Of Systems Except As Marked, All Systems Reviewed And Found Negative. Neurological: Positive for: Altered Mental Status Physical Exam - Physical Exam Appears: Non-toxic, No Acute Distress, Other (mask-like face, smiling) Skin: Warm, Dry Head: Atraumatic, Normacephalic Eye(s): bilateral: Normal Inspection Neck: Normal, Supple Chest: Symmetrical Cardiovascular: Rhythm Regular, No Murmur Respiratory: Normal Breath Sounds, No Rales, No Rhonchi, No Wheezing Extremity: Normal ROM Neurological/Psych: No Oriented x3 (awake, alert, but disoriented at baseline level) ED Course And Treatment - Laboratory Results Result Diagrams: 07/03/18 16:34 07/03/18 16:34 Lab Interpretation: Normal (ua 18 WBC's (normal)) ECG: Interpreted By Me ECG Rhythm: Sinus Rhythm ECG Interpretation: Normal Rate From EC O2 Sat by Pulse Oximetry: 100 Pulse Ox Interpretation: Normal - Radiology CXR: Interpreted by Me CXR Interpretation: Yes: No Acute Disease Reevaluation Time: 18:26 Reassessment Condition: Improved (remains @ baseline) Medical Decision Making Medical Decision Making: transient symptomatic hypoglycemia Usually in Mornings prior to breakfast glu 40-60 suggesting either not enough dinner given or too much insulin given with dinner. Difficult to assess as pt is @ Adult Daycare 11A-6:30P and FS's and insulin given @ lunch and dinner are prescribed, but unknown. Recommended to have FS and insulin regimen @ Daycare documented for further adjustment. Plan: EKG BNP CMP Troponin I CBC CXR One View Glucose POC Urinalysis Disposition Doctor Will See Patient In The: Office Counseled Patient/Family Regarding: Studies Performed, Diagnosis - Disposition [facility] [Outside] [facility] [Outside] Disposition: HOME/ ROUTINE Disposition Time: 18:28 Condition: GOOD Additional Instructions: enterprise manager hypoglycemia may be related transient symptomatic hypoglycemia Usually in Mornings prior to breakfast glu 40-60 suggesting either not enough dinner given or too much insulin given with dinner. Difficult to assess as pt is @ Adult Daycare 11A-6:30P and FS's and insulin given @ lunch and dinner are prescribed, but unknown. Recommended to have FS and insulin regimen @ Daycare documented for further adjustment. Document findings and follow-up with Family Practice Clinic or PMD in about 1 week to consider diet/insulin adjustments. Instructions: Low Blood Sugar, Adult (DC), Low Blood Sugar in People With Diabetes Forms: [facility] (Swedish) - Clinical Impression Clinical Impression: Hypoglycemia - Scribe Statement The provider has reviewed the documentation as recorded by the Scribe (Michael Kelly) Provider Attestation: All medical record entries made by the Scribe were at my direction and personally dictated by me. I have reviewed the chart and agree that the record accurately reflects my personal performance of the history, physical exam, medical decision making, and the department course for this patient. I have also personally directed, reviewed, and agree with the discharge instructions and disposition.
--- NOTE | 2018-07-03 16:35 | RAD ---
Date of service: 07/03/2018 PROCEDURE: CHEST RADIOGRAPH, 1 VIEW HISTORY: SOB COMPARISON: Portable chest 02/24/2018. FINDINGS: LUNGS: No acute pulmonary disease appreciated bilaterally. PLEURA: No pneumothorax or pleural fluid seen. CARDIOVASCULAR: Stable mild cardiomegaly. No pulmonary vascular congestion. Patient rotated toward the low left mildly accentuating the right hilar vascular markings. OSSEOUS STRUCTURES: No significant abnormalities. VISUALIZED UPPER ABDOMEN: Normal. OTHER FINDINGS: None. IMPRESSION: Stable mild cardiomegaly. No acute infiltrate bilaterally. No definite pulmonary vascular congestion.
[2018-07-03 16:37] LABS: BASO % 0.5 % (0.0-2.0); EOS # 0.1 K/uL (0.0-0.7); EOS % 2.7 % (0.0-4.0); HEMOGLOBIN 12.2 g/dL (11.0-16.0); LYMPH # 1.3 K/uL (1.0-4.3); LYMPH % 29.6 % (20.0-40.0); MEAN CELL VOLUME 82.1 fL (81.0-99.0); MEAN CORPUSCULAR HEMOGLOBIN 26.6 pg (27.0-31.0); MEAN CORPUSCULAR HGB CONC 32.4 g/dL (33.0-37.0); MEAN PLATELET VOLUME 8.8 fL (7.2-11.7); MONO # 0.4 K/uL (0.0-0.8); MONO % 9.7 % (0.0-10.0); NEUT # 2.6 K/uL (1.8-7.0); NEUT % 57.5 % (50.0-75.0); NRBC % 0.1 % (0.0-2.0); RBC 4.58 Mil/uL (3.80-5.20); WHITE BLOOD COUNT 4.5 K/uL (4.8-10.8)
[2018-07-03 16:49] LABS: ALB/GLOB RATIO 1.3 (1.0-2.1); ALBUMIN 3.8 g/dL (3.5-5.0); ALT/SGPT 37 U/L (9-52); AST/SGOT 26 U/L (14-36); BLOOD UREA NITROGEN 23 mg/dL (7-17); CALCIUM 9.2 mg/dl (8.6-10.4); GFR NON-AFRICAN AMERICAN > 60
[2018-07-03 17:01] LABS: B-TYPE NATRIURETIC PEPTIDE 220 pg/mL (0-900)
[2018-07-03 18:17] LABS: URINE BACTERIA MANY (<OCC); URINE BILIRUBIN NEGATIVE (NEGATIVE); URINE BLOOD 1+ (NEGATIVE); URINE CLARITY Clear (Clear); URINE COLOR Yellow (YELLOW); URINE GLUCOSE (UA) NORMAL (Normal); URINE LEUKOCYTE ESTERASE 2+ Leu/uL (Negative); URINE PROTEIN NEGATIVE (NEGATIVE); URINE UROBILINOGEN NORMAL mg/dL (0.2-1.0)
--- NOTE | 2018-07-06 16:52 | CARD ---
APPROVED REPORT Date of service: 07/03/2018 EKG Measurement Heart [id number] [place] 158P [id number] <Conclusion> Normal sinus rhythm ST & T wave abnormality, consider lateral ischemia Abnormal ECG
== END 2018-07-03 22:40 | disposition home or self-care (01) ==
LOC: C.ER 15:45
DX: E11.649 Type 2 diabetes mellitus with hypoglycemia without coma (principal); E78.00 Pure hypercholesterolemia, unspecified; F02.80 Dementia in other diseases classified elsewhere, unspecified severity, without behavioral disturbance, psychotic disturbance, mood disturbance, and anxiety; G30.9 Alzheimer's disease, unspecified; I10 Essential (primary) hypertension; I25.10 Atherosclerotic heart disease of native coronary artery without angina pectoris

== ENCOUNTER 2018-08-16 12:33 | Emergency (ER) | payer MEDICARE, OTHER ==
[2018-08-16 12:33] VITALS: BMI 25.7
--- NOTE | 2018-08-16 14:02 | C.PDOC ---
History Of Present Illness 83 y/o F c PMHx DM p/w hyperglycemia x 1 day. Patient was noted at day care today to have fingerstick 300s - 400s. Family at bedside states patient had glucose 200s this morning. Family states patient has been confused and disoriented which they attributed to patient's Alzheimer's yesterday but continued today. Patient has not complained of pain. Denies fever, vomiting, diarrhea, dysuria. Time Seen by Provider: 08/16/18 13:56 Chief Complaint (Nursing): High Blood Sugar Past Medical History Vital Signs: Last Vital Signs Temp 97.4 F L 08/16/18 13:01 Pulse Resp 15 08/16/18 13:01 BP 169/74 H 08/16/18 13:01 Pulse Ox - Medical History PMH: Alzheimer's Disease, Arthritis, CAD, COPD, CVA (affecting left side of body), Dementia, Depression, Diabetes, HTN, Hypercholesterolemia, Hyperlipidemia, Mitral Valve Prolapse Denies: Chronic Kidney Disease Surgical History: Coronary Stent (x3) Comment Only: Pacemaker (.) - [facility] Procedures CENTRAL VENOUS CATHETER PLACEMENT WITH GUIDANCE (07/16/15) CORONAR ARTERIOGR-2 CATH (05/30/14) ESOPHAGOGASTRODUODENOSCOPY [EGD] W/CLOSED BIOPSY (03/28/13) LEFT HEART CARDIAC CATH (05/30/14) LT HEART ANGIOCARDIOGRAM (05/30/14) Family History: States: Unknown Family Hx - Social History Hx Tobacco Use: No Hx Alcohol Use: No Hx Substance Use: No - Immunization History Hx Tetanus Toxoid Vaccination: No Hx Influenza Vaccination: No Hx Pneumococcal Vaccination: No Review Of Systems Except As Marked, All Systems Reviewed And Found Negative. Constitutional: Negative for: Fever Cardiovascular: Negative for: Chest Pain Physical Exam - Physical Exam Additional Physical Exam Comments: Constitutional: No acute distress. Head: Normocephalic. Atraumatic. Eyes: PERRL. ENT: Moist mucous membranes. Neck: Supple. Cardiovascular: Regular rate. Radial pulse 2+ bilaterally. Chest: No tenderness. Respiratory: Clear to auscultation bilaterally. GI: Soft. Nontender. Nondistended. Back: No CVA tenderness. Musculoskeletal: No tenderness or swelling of extremities. Skin: No rash. Neurologic: Alert, no focal deficit. ED Course And Treatment - Laboratory Results Result Diagrams: 08/16/18 15:34 08/16/18 15:34 Medical Decision Making Medical Decision Making: EKG Sinus rhythm, 73 bpm, T wave inversions/biphasic T waves in precordial/lateral leads, largely unchanged from prior 07/03/18. CXR HISTORY: r/o PNA COMPARISON: No prior. FINDINGS: LUNGS: Poor inspiration with low lung volumes, crowded bronchovascular markings and mild bibasilar atelectasis angle region. PLEURA: No significant pleural effusion identified, no pneumothorax apparent. CARDIOVASCULAR: Cardiomegaly with left ventricular configuration. OSSEOUS STRUCTURES: No significant abnormalities. VISUALIZED UPPER ABDOMEN: Normal. OTHER FINDINGS: None. IMPRESSION: Poor inspiration with low lung volumes, crowded bronchovascular markings and mild bibasilar atelectasis angle region. UA shows UTI. Glucose now 200s. BHB negative. In no acute distress while in ED. Discharged home, f/u PMD, return to ED for worsening pain, fever, vomiting, dyspnea, or any other problem. Disposition - Disposition Disposition: HOME/ ROUTINE Disposition Time: 18:45 Condition: STABLE Prescriptions: Nitrofurantoin Macrocrystals [Macrobid] 100 mg PO BID #20 cap Instructions: Urinary Tract Infection, Adult (DC), Hyperglycemia, Adult Forms: [facility] (Spanish) - Clinical Impression Clinical Impression: UTI (lower urinary tract infection), Hyperglycemia - Scribe Statement The provider has reviewed the documentation as recorded by the Scribe
--- NOTE | 2018-08-16 14:53 | RAD ---
Date of service: 08/16/2018 HISTORY: r/o PNA COMPARISON: No prior. FINDINGS: LUNGS: Poor inspiration with low lung volumes, crowded bronchovascular markings and mild bibasilar atelectasis angle region. PLEURA: No significant pleural effusion identified, no pneumothorax apparent. CARDIOVASCULAR: Cardiomegaly with left ventricular configuration. OSSEOUS STRUCTURES: No significant abnormalities. VISUALIZED UPPER ABDOMEN: Normal. OTHER FINDINGS: None. IMPRESSION: Poor inspiration with low lung volumes, crowded bronchovascular markings and mild bibasilar atelectasis angle region.
[2018-08-16 15:40] LABS: BASO % 0.5 % (0.0-2.0); EOS # 0.1 K/uL (0.0-0.7); EOS % 1.3 % (0.0-4.0); HEMOGLOBIN 12.6 g/dL (11.0-16.0); LYMPH # 1.3 K/uL (1.0-4.3); LYMPH % 21.6 % (20.0-40.0); MEAN CELL VOLUME 82.3 fL (81.0-99.0); MEAN CORPUSCULAR HEMOGLOBIN 26.9 pg (27.0-31.0); MEAN CORPUSCULAR HGB CONC 32.7 g/dL (33.0-37.0); MEAN PLATELET VOLUME 9.6 fL (7.2-11.7); MONO # 0.5 K/uL (0.0-0.8); MONO % 9.2 % (0.0-10.0); NEUT % 67.4 % (50.0-75.0); RBC 4.68 Mil/uL (3.80-5.20); RED CELL DISTRIBUTION WIDTH 13.5 % (11.5-14.5); WHITE BLOOD COUNT 5.9 K/uL (4.8-10.8)
[2018-08-16 15:46] LABS: VENOUS BLOOD GAS BASE EXCESS -0.4 mmol/L (0.0-2.0); VENOUS BLOOD GAS PCO2 45 mmHg (40-60); VENOUS BLOOD GAS PO2 33 mm/Hg (30-55); VENOUS BLOOD PH 7.36 (7.32-7.43)
[2018-08-16 16:09] LABS: ALB/GLOB RATIO 1.4 (1.0-2.1); ALBUMIN 4.1 g/dL (3.5-5.0); ALT/SGPT 26 U/L (9-52); AST/SGOT 25 U/L (14-36); BLOOD UREA NITROGEN 16 mg/dL (7-17); CALCIUM 9.3 mg/dl (8.6-10.4); GFR NON-AFRICAN AMERICAN > 60; LIPASE 14 U/L (23-300)
[2018-08-16 16:19] LABS: CK-MB 0.87 ng/mL (0.0-3.38)
[2018-08-16 18:22] LABS: URINE BACTERIA MOD (<OCC); URINE BILIRUBIN NEGATIVE (NEGATIVE); URINE BLOOD 1+ (NEGATIVE); URINE CLARITY Clear (Clear); URINE COLOR Straw (YELLOW); URINE GLUCOSE (UA) 1+ mg/dL (Normal); URINE LEUKOCYTE ESTERASE 2+ Leu/uL (Negative); URINE PROTEIN NEGATIVE (NEGATIVE); URINE UROBILINOGEN NORMAL mg/dL (0.2-1.0)
[2018-08-16 19:44] VITALS: O2SAT 98
[2018-08-16 21:56] VITALS: BP 134/64; PULSE 74; RESP 11; TEMP 98.4
--- NOTE | 2018-08-18 08:11 | CARD ---
APPROVED REPORT Date of service: 08/16/2018 EKG Measurement Heart [id number] <Conclusion> Sinus rhythm with premature atrial complexes ST & T wave abnormality, consider anterolateral ischemia Prolonged QT Abnormal ECG
== END 2018-08-16 22:09 | disposition home or self-care (01) ==
LOC: C.ER 12:33
DX: E11.65 Type 2 diabetes mellitus with hyperglycemia (principal); N39.0 Urinary tract infection, site not specified; I25.10 Atherosclerotic heart disease of native coronary artery without angina pectoris; I10 Essential (primary) hypertension; E78.00 Pure hypercholesterolemia, unspecified; G30.9 Alzheimer's disease, unspecified; F02.80 Dementia in other diseases classified elsewhere, unspecified severity, without behavioral disturbance, psychotic disturbance, mood disturbance, and anxiety; I34.1 Nonrheumatic mitral (valve) prolapse; Z86.73 Personal history of transient ischemic attack (TIA), and cerebral infarction without residual deficits; Z95.0 Presence of cardiac pacemaker; Z95.5 Presence of coronary angioplasty implant and graft

== ENCOUNTER 2019-03-05 12:15 | Inpatient (IN) | payer MEDICARE, OTHER ==
[2019-03-05 12:15] VITALS: BMI 25.7
--- NOTE | 2019-03-05 13:38 | C.PDOC ---
History Of Present Illness 83 y/o F c PMHx HTN, HLD, DM, CAD, CVA with L sided weakness p/w chest pain x few hours. Patient has been feeling generally unwell with loss of appetite this week and started antibiotics this week for presumed UTI due to malodorous urine. Today, patient was sitting and complained of chest pain to family, midchest, nonradiating, associated with nausea, vomiting, shortness of breath and dizziness. Chest pain still present currently. Took full dose ASA prior to arrival. Denies fever, chills, recent travel. Time Seen by Provider: 03/05/19 12:55 Chief Complaint (Nursing): Flu-like Symptoms History Per: Patient History/Exam Limitations: no limitations Onset/Duration Of Symptoms: Hrs Recent travel outside of the [place]: No Past Medical History Vital Signs: Last Vital Signs Temp 98.4 F 03/05/19 12:21 Pulse 76 03/05/19 12:21 Resp 18 03/05/19 12:21 BP 155/73 H 03/05/19 12:21 Pulse Ox 96 03/05/19 12:21 - Medical History PMH: Alzheimer's Disease, Arthritis, CAD, COPD, CVA (affecting left side of body), Dementia, Depression, Diabetes, HTN, Hypercholesterolemia, Hyperlipidemia, Mitral Valve Prolapse Denies: Chronic Kidney Disease Surgical History: Coronary Stent (x3) Comment Only: Pacemaker (.) - [facility] Procedures CENTRAL VENOUS CATHETER PLACEMENT WITH GUIDANCE (07/16/15) CORONAR ARTERIOGR-2 CATH (05/30/14) ESOPHAGOGASTRODUODENOSCOPY [EGD] W/CLOSED BIOPSY (03/28/13) LEFT HEART CARDIAC CATH (05/30/14) LT HEART ANGIOCARDIOGRAM (05/30/14) Family History: States: Unknown Family Hx - Social History Hx Tobacco Use: No Hx Alcohol Use: No Hx Substance Use: No - Immunization History Hx Tetanus Toxoid Vaccination: No Hx Influenza Vaccination: Yes Hx Pneumococcal Vaccination: Yes Review Of Systems Except As Marked, All Systems Reviewed And Found Negative. Constitutional: Negative for: Fever Gastrointestinal: Negative for: Diarrhea Physical Exam - Physical Exam Additional Physical Exam Comments: gen nad head nc/at eyes perrl ent dry mm neck supple chest no tenderness cv reg rate lungs cta b/l abd soft, nt, nd back no cva tenderness skin no rash extremities no edema neuro alert, L sided paralysis. ED Course And Treatment - Laboratory Results Result Diagrams: 03/05/19 13:50 03/05/19 13:50 O2 Sat by Pulse Oximetry: 96 (RA) Pulse Ox Interpretation: Normal - Other Rad CXR X-Ray: Viewed By Me, Read By Radiologist Interpretation: FINDINGS: LUNGS: No active pulmonary disease. PLEURA: No significant pleural effusion identified, no pneumothorax apparent. CARDIOVASCULAR: There is atherosclerotic calcification of the thoracic aorta. Normal cardiac size. No pulmonary vascular congestion. OSSEOUS STRUCTURES: No significant abnormalities. VISUALIZED UPPER ABDOMEN: Normal. OTHER FINDINGS: None. IMPRESSION: No active disease. Medical Decision Making Medical Decision Making: Differential includes but not limited to ACS/TX, influenza, pancreatitis. Will require further observation for ACS rule out. Initial plan: -EKG -Blood sent. -CXR -Influenza -Urine Culture -Urinalysis EKG NSR 77 bpm, no ST elevations, lateral T wave inversions. Disposition - Disposition Disposition: HOSPITALIZED Disposition Time: 15:00 Condition: FAIR Forms: [facility] (Setswana) - POA Core Measure Indicators: Chest Pain - Clinical Impression Clinical Impression: Chest pain
[2019-03-05 13:57] LABS: BASO % 0.2 % (0.0-2.0); EOS % 0.2 % (0.0-4.0); HEMOGLOBIN 12.1 g/dL (11.0-16.0); LYMPH # 0.7 K/uL (1.0-4.3); LYMPH % 16.4 % (20.0-40.0); MEAN CELL VOLUME 82.6 fL (81.0-99.0); MEAN CORPUSCULAR HEMOGLOBIN 26.6 pg (27.0-31.0); MEAN CORPUSCULAR HGB CONC 32.2 g/dL (33.0-37.0); MONO # 0.5 K/uL (0.0-0.8); MONO % 10.9 % (0.0-10.0); NEUT % 72.3 % (50.0-75.0); RBC 4.57 Mil/uL (3.80-5.20); RED CELL DISTRIBUTION WIDTH 14.1 % (11.5-14.5); WHITE BLOOD COUNT 4.2 K/uL (4.8-10.8)
[2019-03-05 14:05] LABS: INR 1.2
[2019-03-05 14:09] LABS: ALB/GLOB RATIO 1.5 (1.0-2.1); ALBUMIN 4.2 g/dL (3.5-5.0); ALT/SGPT 31 U/L (9-52); AST/SGOT 25 U/L (14-36); BLOOD UREA NITROGEN 25 mg/dL (7-17); CALCIUM 9.4 mg/dl (8.6-10.4); GFR NON-AFRICAN AMERICAN > 60
[2019-03-05 14:10] LABS: LIPASE < 10 U/L (23-300)
[2019-03-05 14:21] LABS: CK-MB 1.69 ng/mL (0.0-3.38)
--- NOTE | 2019-03-05 15:34 | RAD ---
Date of service: 03/05/2019 HISTORY: cp COMPARISON: 08/16/2018 TECHNIQUE: 1 view obtained. FINDINGS: LUNGS: No active pulmonary disease. PLEURA: No significant pleural effusion identified, no pneumothorax apparent. CARDIOVASCULAR: There is atherosclerotic calcification of the thoracic aorta. Normal cardiac size. No pulmonary vascular congestion. OSSEOUS STRUCTURES: No significant abnormalities. VISUALIZED UPPER ABDOMEN: Normal. OTHER FINDINGS: None. IMPRESSION: No active disease.
[2019-03-05 15:36] LABS: URINE BILIRUBIN NEGATIVE (NEGATIVE); URINE BLOOD NEGATIVE (NEGATIVE); URINE GLUCOSE (UA) NORMAL (Normal); URINE LEUKOCYTE ESTERASE NEG Leu/uL (Negative); URINE PROTEIN NEGATIVE (NEGATIVE)
[2019-03-05 17:26] LABS: URINE CLARITY Hazy (Clear); URINE COLOR YELLOW (YELLOW)
--- NOTE | 2019-03-05 18:13 | CP.PCM.HP ---
Past Patient History - Infectious Disease Hx of Infectious Diseases: None - Tetanus Immunizations Tetanus Immunization: Unknown - Past Medical History & Family History Past Medical History?: Yes - Past Social History Smoking Status: Never Smoked - CARDIAC Hx Hypercholesterolemia: Yes Hx Hypertension: Yes Hx Mitral Valve Prolapse: Yes Hx Pacemaker: (.) - PULMONARY Hx Chronic Obstructive Pulmonary Disease (COPD): Yes - NEUROLOGICAL Hx Alzheimer's Disease: Yes Hx Dementia: Yes - HEENT Hx HEENT Problems: No - RENAL Hx Chronic Kidney Disease: No - ENDOCRINE/METABOLIC Hx Diabetes Mellitus Type 2: Yes - HEMATOLOGICAL/ONCOLOGICAL Hx Blood Disorders: No - INTEGUMENTARY Hx Dermatological Problems: No - MUSCULOSKELETAL/RHEUMATOLOGICAL Hx Arthritis: Yes - GASTROINTESTINAL Hx Gastrointestinal Disorders: Yes Hx Gastroesophageal Reflux: Yes - GENITOURINARY/GYNECOLOGICAL Hx Genitourinary Disorders: Yes Hx Urinary Tract Infection: Yes - PSYCHIATRIC Hx Depression: Yes Hx Substance Use: No - SURGICAL HISTORY Hx Coronary Stent: Yes (x3) - ANESTHESIA Hx Anesthesia: Yes Hx Anesthesia Reactions: No Hx Malignant Hyperthermia: No Meds Allergies/Adverse Reactions: Allergies Allergy/AdvReac Type Severity Reaction Status Date / Time iodine Allergy RASH Verified 02/24/18 11:36 seafood Allergy Uncoded 02/24/18 11:36 Physical Exam - Constitutional Appears: Well - Head Exam Head Exam: ATRAUMATIC, NORMAL INSPECTION, NORMOCEPHALIC - Eye Exam Eye Exam: EOMI, Normal appearance, PERRL Pupil Exam: NORMAL ACCOMODATION, PERRL - ENT Exam ENT Exam: Mucous Membranes Moist, Normal Exam - Neck Exam Neck exam: Positive for: Normal Inspection - Respiratory Exam Respiratory Exam: Decreased Breath Sounds - Cardiovascular Exam Cardiovascular Exam: REGULAR RHYTHM, +S1, +S2 - GI/Abdominal Exam GI & Abdominal Exam: Diminished Bowel Sounds, Soft - Rectal Exam Rectal Exam: Deferred - Neurological Exam Neurological exam: Oriented x3 Results - Vital Signs Recent Vital Signs: Last Vital Signs Temp 98.1 F 03/05/19 17:59 Pulse 78 03/05/19 17:59 Resp 16 03/05/19 17:59 BP 145/67 03/05/19 17:59 Pulse Ox 96 03/05/19 17:59 - Labs Result Diagrams: 03/05/19 13:50 03/05/19 13:50 Labs: Laboratory Results - last 24 hr 03/05/19 03/05/19 03/05/19 13:50 13:50 13:50 WBC 4.2 L RBC 4.57 Hgb 12.1 Hct 37.7 MCV 82.6 MCH 26.6 L MCHC 32.2 L RDW 14.1 Plt Count 252 MPV 9.0 Neut % (Auto) 72.3 Lymph % (Auto) 16.4 L [place] % (Auto) 10.9 H Eos % (Auto) 0.2 Baso % (Auto) 0.2 Neut # (Auto) 3.0 Lymph # (Auto) 0.7 L [place] # (Auto) 0.5 Eos # (Auto) 0.0 Baso # (Auto) 0.0 PT 13.0 H INR 1.2 APTT 28.0 Sodium Potassium Chloride Carbon Dioxide Anion Gap BUN Creatinine Est GFR ( Amer) Est GFR (Non-Af Amer) Random Glucose Calcium Phosphorus Magnesium Total Bilirubin AST ALT Alkaline Phosphatase Total Creatine Kinase CK-MB (Mass) Troponin I Total Protein Albumin Globulin Albumin/Globulin Ratio Lipase Urine Color Urine Clarity Urine pH Ur Specific [place] Urine Protein Urine Glucose (UA) Urine Ketones Urine Blood Urine Nitrate Urine Bilirubin Urine Urobilinogen Ur Leukocyte Esterase Urine WBC (Auto) Urine RBC (Auto) Influenza Typ A,B (EIA) Negative for flu a/b 03/05/19 03/05/19 13:50 15:27 WBC RBC Hgb Hct MCV MCH MCHC RDW Plt Count MPV Neut % (Auto) Lymph % (Auto) [place] % (Auto) Eos % (Auto) Baso % (Auto) Neut # (Auto) Lymph # (Auto) [place] # (Auto) Eos # (Auto) Baso # (Auto) PT INR APTT Sodium 135 Potassium 4.6 Chloride 101 Carbon Dioxide 27 Anion Gap 12 BUN 25 H Creatinine 0.6 L Est GFR ( Amer) > 60 Est GFR (Non-Af Amer) > 60 Random Glucose 175 H D Calcium 9.4 Phosphorus 4.0 Magnesium 2.1 Total Bilirubin 0.4 AST 25 ALT 31 Alkaline Phosphatase 73 Total Creatine Kinase 29 L CK-MB (Mass) 1.69 Troponin I < 0.0120 Total Protein 7.0 Albumin 4.2 Globulin 2.8 Albumin/Globulin Ratio 1.5 Lipase < 10 L Urine Color Yellow Urine Clarity Hazy Urine pH 5.0 Ur Specific [place] 1.023 Urine Protein Negative Urine Glucose (UA) Normal Urine Ketones Negative Urine Blood Negative Urine Nitrate Negative Urine Bilirubin Negative Urine Urobilinogen 2.0 H Ur Leukocyte Esterase Neg Urine WBC (Auto) 2 Urine RBC (Auto) 2 Influenza Typ A,B (EIA)
[2019-03-05 20:17] LABS: CK-MB 1.43 ng/mL (0.0-3.38)
[2019-03-05] MEDS: Insulin Detemir 100 units/ml Vial (Levemir) SC SCH (21:18)
[2019-03-05] MEDS: (Novolog) Insulin Aspart, Recombinant 100 u/ml 10 ml vial SC SCH (21:24)
[2019-03-06] MEDS: (Novolog) Insulin Aspart, Recombinant 100 u/ml 10 ml vial SC SCH ×4 (07:19→21:32)
[2019-03-06] MEDS: Pantoprazole 40 mg EC Tab PO SCH (09:05)
[2019-03-06] MEDS: Metoprolol Succinate 100 mg XL Tab PO SCH (09:05)
--- NOTE | 2019-03-06 20:35 | CP.PCM.CON ---
History of Present Illness - History of Present Illness History of Present Illness: 83-year-old patient with past medical history significant for hypertension hyperlipidemia diabetes mellitus CAD CVA with left-sided weakness presented with complains of chest pain for few hours prior to presentation. Patient was initi ated on antibiotics for UTI due to malodorous urine and had decreased appetite and anorexia for a week prior to presentation patient had some epigastric discomfort accompanied with nausea vomiting shortness of breath and dizziness. Past medical history significant for CVA affecting left side of the body diabetes hypertension hyperlipidemia mitral valve prolapse Alzheimer's dementia arthritis surgical history significant for coronary artery stenting x3. She had a cardiac catheterization by Dr. 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 Foote who was conservatively treating her she underwent a nuclear stress test in February 2018 which showed transient ischemic dilatation. 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 On this admission she did have an episode of diaphoresis and chest discomfort after a bout of diarrhea and had recurrent bouts of chest pain. Review of Systems - Review of Systems Systems not reviewed;Unavailable: Acuity of Condition - Constitutional Constitutional: As Per HPI - EENT Eyes: As Per HPI Ears: As Per HPI Nose/Mouth/Throat: As Per HPI - Breasts Breasts: As Per HPI - Cardiovascular Cardiovascular: As Per HPI - Respiratory Respiratory: As Per HPI - Gastrointestinal Gastrointestinal: As Per HPI - Genitourinary Genitourinary: As Per HPI - Reproductive: Female Reproductive:Female: As Per HPI - Menstruation Menstruation: As Per HPI - Musculoskeletal Musculoskeletal: As Per HPI - Integumentary Integumentary: As Per HPI - Neurological Neurological: As Per HPI - Psychiatric Psychiatric: As Per HPI - Endocrine Endocrine: As Per HPI - Hematologic/Lymphatic Hematologic: As Per HPI Past Patient History - Infectious Disease Hx of Infectious Diseases: None - Tetanus Immunizations Tetanus Immunization: Unknown - Past Medical History & Family History Past Medical History?: Yes - Past Social History Smoking Status: Never Smoked - CARDIAC Hx Hypercholesterolemia: Yes Hx Hypertension: Yes Hx Mitral Valve Prolapse: Yes Hx Pacemaker: (.) - PULMONARY Hx Chronic Obstructive Pulmonary Disease (COPD): Yes - NEUROLOGICAL Hx Alzheimer's Disease: Yes Hx Dementia: Yes - HEENT Hx HEENT Problems: No - RENAL Hx Chronic Kidney Disease: No - ENDOCRINE/METABOLIC Hx Diabetes Mellitus Type 2: Yes - HEMATOLOGICAL/ONCOLOGICAL Hx Blood Disorders: No - INTEGUMENTARY Hx Dermatological Problems: No - MUSCULOSKELETAL/RHEUMATOLOGICAL Hx Arthritis: Yes - GASTROINTESTINAL Hx Gastrointestinal Disorders: Yes Hx Gastroesophageal Reflux: Yes - GENITOURINARY/GYNECOLOGICAL Hx Genitourinary Disorders: Yes Hx Urinary Tract Infection: Yes - PSYCHIATRIC Hx Depression: Yes Hx Substance Use: No - SURGICAL HISTORY Hx Coronary Stent: Yes (x3) - ANESTHESIA Hx Anesthesia: Yes Hx Anesthesia Reactions: No Hx Malignant Hyperthermia: No Meds Allergies/Adverse Reactions: Allergies Allergy/AdvReac Type Severity Reaction Status Date / Time iodine Allergy RASH Verified 02/24/18 11:36 seafood Allergy Uncoded 02/24/18 11:36 - Medications Medications: Current Medications Amlodipine Besylate (Norvasc) 10 mg PO DAILY [facility] Last Admin: 03/06/19 09:05 Dose: 10 mg Aspirin (Aspirin Chewable) 81 mg PO DAILY [facility] Last Admin: 03/06/19 09:06 Dose: 81 mg Clopidogrel Bisulfate (Plavix) 75 mg PO DAILY [facility] Last Admin: 03/06/19 09:05 Dose: 75 mg Docusate Sodium (Colace) 100 mg PO BID [facility] Last Admin: 03/06/19 17:22 Dose: 100 mg Insulin Aspart (Novolog) 0 unit SC [facility]; Protocol Last Admin: 03/06/19 17:25 Dose: Not Given Insulin Detemir (Levemir) 25 unit SC [facility] Last Admin: 03/05/19 21:18 Dose: 25 units Losartan Potassium (Cozaar) 100 mg PO DAILY [facility] Last Admin: 03/06/19 09:05 Dose: 100 mg Metformin HCl (Glucophage) 500 mg PO ACB [facility] Last Admin: 03/06/19 09:05 Dose: 500 mg Metoprolol Succinate (Toprol Xl) 100 mg PO DAILY [facility] Last Admin: 03/06/19 09:05 Dose: 100 mg Mirtazapine (Remeron) 7.5 mg PO [facility] Last Admin: 03/05/19 21:18 Dose: 7.5 mg Pantoprazole Sodium (Protonix Ec Tab) 40 mg PO DAILY [facility] Last Admin: 03/06/19 09:05 Dose: 40 mg Rosuvastatin Calcium (Crestor) 10 mg PO [facility] Last Admin: 03/05/19 21:18 Dose: 10 mg Physical Exam - Constitutional Appears: Well - Head Exam Head Exam: ATRAUMATIC, NORMAL INSPECTION, NORMOCEPHALIC - Eye Exam Eye Exam: EOMI, Normal appearance, PERRL Pupil Exam: NORMAL ACCOMODATION, PERRL - ENT Exam ENT Exam: Mucous Membranes Moist, Normal Exam - Neck Exam Neck exam: Positive for: Normal Inspection - Respiratory Exam Respiratory Exam: Clear to Auscultation Bilateral, NORMAL BREATHING PATTERN - Cardiovascular Exam Cardiovascular Exam: REGULAR RHYTHM, RRR, +S1, +S2, Systolic Murmur - GI/Abdominal Exam GI & Abdominal Exam: Normal Bowel Sounds, Soft. absent: Tenderness - Extremities Exam Extremities exam: Positive for: normal inspection - Back Exam Back exam: NORMAL INSPECTION - Neurological Exam Neurological exam: Alert, CN II-XII Intact, Normal Gait, Oriented x3, Reflexes Normal - Psychiatric Exam Psychiatric exam: Normal Affect, Normal Mood - Skin Skin Exam: Dry, Intact, Normal Color, Warm Results - Vital Signs Recent Vital Signs: Last Vital Signs Temp 98 F 03/06/19 16:00 Pulse 73 03/06/19 18:00 Resp 20 03/06/19 16:00 BP 100/53 L 03/06/19 16:00 Pulse Ox 95 03/06/19 16:00 - Labs Result Diagrams: 03/05/19 13:50 03/05/19 13:50 Labs: Laboratory Results - last 24 hr 03/05/19 03/06/19 03/06/19 20:49 06:23 12:15 POC Glucose (mg/dL) 203 H 134 H 145 H 03/06/19 17:14 POC Glucose (mg/dL) 132 H Assessment & Plan (1) Chest pain Assessment and Plan: known triple vessel CAD 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
[2019-03-06] MEDS: Insulin Detemir 100 units/ml Vial (Levemir) SC SCH (22:01)
--- NOTE | 2019-03-06 22:05 | CP.PCM.PN ---
Subjective - Date & Time of Evaluation Date of Evaluation: 03/06/19 - Subjective Subjective: patient seen and examined at bedside no nausea no vomitng no dizziness no diarrhea no fever no shortness of breath Objective - Vital Signs/Intake and Output Vital Signs (last 24 hours): Temp Pulse Resp BP Pulse Ox 98 F 73 20 100/53 L 95 03/06/19 16:00 03/06/19 18:00 03/06/19 16:00 03/06/19 16:00 03/06/19 16:00 Intake and Output: 03/06/19 03/07/19 18:59 06:59 Intake Total 250 Output Total 475 Balance -225 - Medications Medications: Current Medications Amlodipine Besylate (Norvasc) 10 mg PO DAILY [facility] Last Admin: 03/06/19 09:05 Dose: 10 mg Aspirin (Aspirin Chewable) 81 mg PO DAILY [facility] Last Admin: 03/06/19 09:06 Dose: 81 mg Clopidogrel Bisulfate (Plavix) 75 mg PO DAILY [facility] Last Admin: 03/06/19 09:05 Dose: 75 mg Docusate Sodium (Colace) 100 mg PO BID [facility] Last Admin: 03/06/19 17:22 Dose: 100 mg Insulin Aspart (Novolog) 0 unit SC [facility]; Protocol Last Admin: 03/06/19 21:32 Dose: Not Given Insulin Detemir (Levemir) 25 unit SC [facility] Last Admin: 03/06/19 22:01 Dose: 25 units Losartan Potassium (Cozaar) 100 mg PO DAILY [facility] Last Admin: 03/06/19 09:05 Dose: 100 mg Metformin HCl (Glucophage) 500 mg PO B [facility] Last Admin: 03/06/19 09:05 Dose: 500 mg Metoprolol Succinate (Toprol Xl) 100 mg PO DAILY [facility] Last Admin: 03/06/19 09:05 Dose: 100 mg Mirtazapine (Remeron) 7.5 mg PO [facility] Last Admin: 03/06/19 22:02 Dose: 7.5 mg Pantoprazole Sodium (Protonix Ec Tab) 40 mg PO DAILY [facility] Last Admin: 03/06/19 09:05 Dose: 40 mg Rosuvastatin Calcium (Crestor) 10 mg PO [facility] Last Admin: 03/06/19 22:01 Dose: 10 mg - Labs Labs: 03/05/19 13:50 03/05/19 13:50 PT 13.0 SECONDS (9.7-12.2) H 03/05/19 13:50 INR 1.2 03/05/19 13:50 APTT 28.0 SECONDS (21-34) 03/05/19 13:50 - Constitutional Appears: Well - Head Exam Head Exam: ATRAUMATIC, NORMAL INSPECTION, NORMOCEPHALIC - Eye Exam Eye Exam: EOMI, Normal appearance, PERRL Pupil Exam: NORMAL ACCOMODATION, PERRL - ENT Exam ENT Exam: Mucous Membranes Moist, Normal Exam - Neck Exam Neck Exam: Full ROM, Normal Inspection. absent: Lymphadenopathy - Respiratory Exam Respiratory Exam: Decreased Breath Sounds - Cardiovascular Exam Cardiovascular Exam: REGULAR RHYTHM, +S1, +S2 - GI/Abdominal Exam GI & Abdominal Exam: Soft, Diminished Bowel Sounds - Rectal Exam Rectal Exam: Deferred - Neurological Exam Neurological Exam: Oriented x3 Assessment and Plan - Assessment and Plan (Free Text) Plan: medications reviewed vitals reviewed labs reviewed aspirin chewabe colcae cozaar crestor glucophage levemir norvasc novolog plavix protonix ec tab remeron toprol xl moderate complexity of care plan discussed with patient
[2019-03-07] MEDS: (Novolog) Insulin Aspart, Recombinant 100 u/ml 10 ml vial SC SCH ×4 (07:39→21:42)
--- NOTE | 2019-03-07 09:00 | CP.PCM.PN ---
Subjective - Date & Time of Evaluation Date of Evaluation: 03/07/19 Time of Evaluation: 08:59 - Subjective Subjective: stable ACS ruled out with serial enzymes x 3 Objective - Vital Signs/Intake and Output Vital Signs (last 24 hours): Temp Pulse Resp BP Pulse Ox 98.8 F 71 20 118/66 97 03/07/19 07:00 03/07/19 07:00 03/07/19 07:00 03/07/19 07:00 03/07/19 07:00 Intake and Output: 03/07/19 03/07/19 06:59 18:59 Output Total 250 Balance -250 - Medications Medications: Current Medications Amlodipine Besylate (Norvasc) 10 mg PO DAILY [facility] Last Admin: 03/06/19 09:05 Dose: 10 mg Aspirin (Aspirin Chewable) 81 mg PO DAILY [facility] Last Admin: 03/06/19 09:06 Dose: 81 mg Clopidogrel Bisulfate (Plavix) 75 mg PO DAILY [facility] Last Admin: 03/06/19 09:05 Dose: 75 mg Docusate Sodium (Colace) 100 mg PO BID [facility] Last Admin: 03/06/19 17:22 Dose: 100 mg Insulin Aspart (Novolog) 0 unit [facility]; Protocol Last Admin: 03/07/19 07:39 Dose: Not Given Insulin Detemir (Levemir) [address] [facility] Last Admin: 03/06/19 22:01 Dose: 25 units Losartan Potassium (Cozaar) 100 mg PO DAILY [facility] Last Admin: 03/06/19 09:05 Dose: 100 mg Metformin HCl (Glucophage) 500 mg PO ACB [facility] Last Admin: 03/07/19 08:21 Dose: 500 mg Metoprolol Succinate (Toprol Xl) 100 mg PO DAILY [facility] Last Admin: 03/06/19 09:05 Dose: 100 mg Mirtazapine (Remeron) 7.[address] [facility] Last Admin: 03/06/19 22:02 Dose: 7.5 mg Pantoprazole Sodium (Protonix Ec Tab) 40 mg PO DAILY [facility] Last Admin: 03/06/19 09:05 Dose: 40 mg Rosuvastatin Calcium (Crestor) 10 mg PO HS [facility] Last Admin: 03/06/19 22:01 Dose: 10 mg - Labs Labs: 03/05/19 13:50 03/05/19 13:50 PT 13.0 SECONDS (9.7-12.2) H 03/05/19 13:50 INR 1.2 03/05/19 13:50 APTT 28.0 SECONDS (21-34) 03/05/19 13:50 - Constitutional Appears: Well - Head Exam Head Exam: ATRAUMATIC, NORMAL INSPECTION, NORMOCEPHALIC - Eye Exam Eye Exam: EOMI, Normal appearance, PERRL Pupil Exam: NORMAL ACCOMODATION, PERRL - ENT Exam ENT Exam: Mucous Membranes Moist, Normal Exam - Neck Exam Neck Exam: Full ROM, Normal Inspection. absent: Lymphadenopathy - Respiratory Exam Respiratory Exam: Clear to Ausculation Bilateral, NORMAL BREATHING PATTERN - Cardiovascular Exam Cardiovascular Exam: REGULAR RHYTHM, +S1, +S2. absent: Murmur - GI/Abdominal Exam GI & Abdominal Exam: Soft, Normal Bowel Sounds. absent: Tenderness - Extremities Exam Extremities Exam: Full ROM, Normal Capillary Refill, Normal Inspection. absent: Joint Swelling, Pedal Edema - Back Exam Back Exam: NORMAL INSPECTION - Neurological Exam Neurological Exam: Alert, Awake, CN II-XII Intact, Normal Gait, Oriented x3 - Psychiatric Exam Psychiatric exam: Normal Affect, Normal Mood - Skin Skin Exam: Dry, Intact, Normal Color, Warm Assessment and Plan (1) Chest pain Assessment & Plan: known ISR from cath in 2014 abnormal stress test in 2018 family wants to discuss with about plan of care cont med rx for now Status: Acute (2) CVA, old, hemiparesis Status: Acute (3) UTI (lower urinary tract infection) Status: Acute (4) Vomiting Status: Acute (5) CAD (coronary artery disease) Assessment & Plan: cont dapt cont bb and arb add ranexa Status: Chronic (6) Hyperlipemia Status: Chronic
[2019-03-07] MEDS: Pantoprazole 40 mg EC Tab PO SCH (09:32)
[2019-03-07] MEDS: Metoprolol Succinate 100 mg XL Tab PO SCH (09:32)
--- NOTE | 2019-03-07 19:24 | CP.PCM.PN ---
Subjective - Date & Time of Evaluation Date of Evaluation: 03/07/19 - Subjective Subjective: patient seen today no nausea, no vomiting, no shortness of breath, no dizziness, no diarrhea, no fever Objective - Vital Signs/Intake and Output Vital Signs (last 24 hours): Temp Pulse Resp BP Pulse Ox 98.3 F 72 20 121/59 L 93 L 03/07/19 15:00 03/07/19 15:00 03/07/19 15:00 03/07/19 15:00 03/07/19 15:00 - Medications Medications: Current Medications Amlodipine Besylate (Norvasc) 10 mg PO DAILY [facility] Last Admin: 03/07/19 09:31 Dose: 10 mg Aspirin (Aspirin Chewable) 81 mg PO DAILY [facility] Last Admin: 03/07/19 09:32 Dose: 81 mg Clopidogrel Bisulfate (Plavix) 75 mg PO DAILY [facility] Last Admin: 03/07/19 09:32 Dose: 75 mg Docusate Sodium (Colace) 100 mg PO BID [facility] Last Admin: 03/07/19 17:52 Dose: 100 mg Insulin Aspart (Novolog) 0 unit SC [facility]; Protocol Last Admin: 03/07/19 17:14 Dose: Not Given Insulin Detemir (Levemir) 25 unit SC [facility] Last Admin: 03/06/19 22:01 Dose: 25 units Losartan Potassium (Cozaar) 100 mg PO DAILY [facility] Last Admin: 03/07/19 09:32 Dose: 100 mg Metformin HCl (Glucophage) 500 mg PO ACB [facility] Last Admin: 03/07/19 08:21 Dose: 500 mg Metoprolol Succinate (Toprol Xl) 100 mg PO DAILY [facility] Last Admin: 03/07/19 09:32 Dose: 100 mg Mirtazapine (Remeron) 7.5 mg PO [facility] Last Admin: 03/06/19 22:02 Dose: 7.5 mg Pantoprazole Sodium (Protonix Ec Tab) 40 mg PO DAILY [facility] Last Admin: 03/07/19 09:32 Dose: 40 mg Rosuvastatin Calcium (Crestor) 10 mg PO HS [facility] Last Admin: 03/06/19 22:01 Dose: 10 mg - Labs Labs: 03/05/19 13:50 03/05/19 13:50 PT 13.0 SECONDS (9.7-12.2) H 03/05/19 13:50 INR 1.2 03/05/19 13:50 APTT 28.0 SECONDS (21-34) 03/05/19 13:50 - Constitutional Appears: Well - Head Exam Head Exam: ATRAUMATIC, NORMAL INSPECTION, NORMOCEPHALIC - Eye Exam Eye Exam: EOMI, Normal appearance, PERRL Pupil Exam: NORMAL ACCOMODATION, PERRL - ENT Exam ENT Exam: Mucous Membranes Moist, Normal Exam - Neck Exam Neck Exam: Full ROM, Normal Inspection. absent: Lymphadenopathy - Respiratory Exam Respiratory Exam: Decreased Breath Sounds - Cardiovascular Exam Cardiovascular Exam: REGULAR RHYTHM, +S1, +S2 - GI/Abdominal Exam GI & Abdominal Exam: Soft, Diminished Bowel Sounds - Rectal Exam Rectal Exam: Deferred - Neurological Exam Neurological Exam: Oriented x3 Assessment and Plan - Assessment and Plan (Free Text) Plan: medications reviewed labs reviewed vitals reviewed plan discussed with patient moderate complexity of care
[2019-03-07] MEDS: Insulin Detemir 100 units/ml Vial (Levemir) SC SCH (21:42)
[2019-03-08] MEDS: (Novolog) Insulin Aspart, Recombinant 100 u/ml 10 ml vial SC SCH ×4 (07:46→22:37)
[2019-03-08] MEDS: Pantoprazole 40 mg EC Tab PO SCH (09:46)
[2019-03-08] MEDS: Metoprolol Succinate 100 mg XL Tab PO SCH (09:46)
--- NOTE | 2019-03-08 10:31 | CP.PCM.PN ---
Subjective - Date & Time of Evaluation Date of Evaluation: 03/08/19 - Subjective Subjective: patient examined today no nausea no vomitng no diarrhea no fever no dizziness no shortness of breath Objective - Vital Signs/Intake and Output Vital Signs (last 24 hours): Temp Pulse Resp BP Pulse Ox 98.8 F 77 20 105/63 94 L 03/08/19 07:43 03/08/19 07:43 03/08/19 07:43 03/08/19 07:43 03/08/19 07:43 Intake and Output: 03/08/19 03/08/19 06:59 18:59 Intake Total 150 Output Total 300 Balance -150 - Medications Medications: Current Medications Amlodipine Besylate (Norvasc) 10 mg PO DAILY [facility] Last Admin: 03/08/19 09:52 Dose: Not Given Aspirin (Aspirin Chewable) 81 mg PO DAILY [facility] Last Admin: 03/08/19 09:46 Dose: 81 mg Clopidogrel Bisulfate (Plavix) 75 mg PO DAILY [facility] Last Admin: 03/08/19 09:46 Dose: 75 mg Docusate Sodium (Colace) 100 mg PO BID [facility] Last Admin: 03/08/19 09:46 Dose: 100 mg Insulin Aspart (Novolog) 0 unit SC [facility]; Protocol Last Admin: 03/08/19 07:46 Dose: Not Given Insulin Detemir (Levemir) 25 unit SC [facility] Last Admin: 03/07/19 21:42 Dose: 25 units Losartan Potassium (Cozaar) 100 mg PO DAILY [facility] Last Admin: 03/08/19 09:46 Dose: 100 mg Metformin HCl (Glucophage) 500 mg PO ACB [facility] Last Admin: 03/08/19 08:17 Dose: 500 mg Metoprolol Succinate (Toprol Xl) 100 mg PO DAILY [facility] Last Admin: 03/08/19 09:46 Dose: 100 mg Mirtazapine (Remeron) 7.5 mg PO [facility] Last Admin: 03/07/19 21:42 Dose: 7.5 mg Pantoprazole Sodium (Protonix Ec Tab) 40 mg PO DAILY [facility] Last Admin: 03/08/19 09:46 Dose: 40 mg Rosuvastatin Calcium (Crestor) 10 mg PO HS [facility] Last Admin: 03/07/19 21:42 Dose: 10 mg - Labs Labs: 03/05/19 13:50 03/05/19 13:50 PT 13.0 SECONDS (9.7-12.2) H 03/05/19 13:50 INR 1.2 03/05/19 13:50 APTT 28.0 SECONDS (21-34) 03/05/19 13:50 - Constitutional Appears: Well - Head Exam Head Exam: ATRAUMATIC, NORMAL INSPECTION, NORMOCEPHALIC - Eye Exam Eye Exam: EOMI, Normal appearance, PERRL Pupil Exam: NORMAL ACCOMODATION, PERRL - ENT Exam ENT Exam: Mucous Membranes Moist, Normal Exam - Neck Exam Neck Exam: Full ROM, Normal Inspection. absent: Lymphadenopathy - Respiratory Exam Respiratory Exam: Decreased Breath Sounds - Cardiovascular Exam Cardiovascular Exam: REGULAR RHYTHM, +S1, +S2 - GI/Abdominal Exam GI & Abdominal Exam: Soft, Diminished Bowel Sounds - Rectal Exam Rectal Exam: Deferred - Neurological Exam Neurological Exam: Oriented x3 Assessment and Plan - Assessment and Plan (Free Text) Plan: labs reviewed vitals reviewed medications reviewed aspirin chewable tab colace cozaar crestor glucophage levemir lovenox norvasc novolog plavix protonix ec tab remeron toprol xl plan discussed with patient moderate complexity of care
--- NOTE | 2019-03-08 13:14 | CARD ---
APPROVED REPORT Date of service: 03/05/2019 EKG Measurement Heart [id number] [id number] <Conclusion> Normal sinus rhythm with sinus arrhythmia ST & T wave abnormality, consider lateral ischemia Abnormal ECG
--- NOTE | 2019-03-08 15:21 | CP.PCM.PN ---
Subjective - Date & Time of Evaluation Date of Evaluation: 03/08/19 Time of Evaluation: 15:20 - Subjective Subjective: feeling fine echo ordered c/o having abdominal discomfort Objective - Vital Signs/Intake and Output Vital Signs (last 24 hours): Temp Pulse Resp BP Pulse Ox 98.8 F 77 20 105/63 94 L 03/08/19 07:43 03/08/19 07:43 03/08/19 07:43 03/08/19 07:43 03/08/19 07:43 Intake and Output: 03/08/19 03/08/19 06:59 18:59 Intake Total 150 Output Total 300 Balance -150 - Medications Medications: Current Medications Amlodipine Besylate (Norvasc) 10 mg PO DAILY [facility] Last Admin: 03/08/19 09:52 Dose: Not Given Aspirin (Aspirin Chewable) 81 mg PO DAILY [facility] Last Admin: 03/08/19 09:46 Dose: 81 mg Clopidogrel Bisulfate (Plavix) 75 mg PO DAILY [facility] Last Admin: 03/08/19 09:46 Dose: 75 mg Docusate Sodium (Colace) 100 mg PO BID [facility] Last Admin: 03/08/19 09:46 Dose: 100 mg Insulin Aspart (Novolog) 0 unit SC [facility]; Protocol Last Admin: 03/08/19 12:28 Dose: 1 units Insulin Detemir (Levemir) 25 unit SC [facility] Last Admin: 03/07/19 21:42 Dose: 25 units Losartan Potassium (Cozaar) 100 mg PO DAILY [facility] Last Admin: 03/08/19 09:46 Dose: 100 mg Metformin HCl (Glucophage) 500 mg PO ACB [facility] Last Admin: 03/08/19 08:17 Dose: 500 mg Metoprolol Succinate (Toprol Xl) 100 mg PO DAILY [facility] Last Admin: 03/08/19 09:46 Dose: 100 mg Mirtazapine (Remeron) 7.5 mg PO HS [facility] Last Admin: 03/07/19 21:42 Dose: 7.5 mg Pantoprazole Sodium (Protonix Ec Tab) 40 mg PO DAILY [facility] Last Admin: 03/08/19 09:46 Dose: 40 mg Rosuvastatin Calcium (Crestor) 10 mg PO HS [facility] Last Admin: 03/07/19 21:42 Dose: 10 mg - Labs Labs: 03/05/19 13:50 03/05/19 13:50 PT 13.0 SECONDS (9.7-12.2) H 03/05/19 13:50 INR 1.2 03/05/19 13:50 APTT 28.0 SECONDS (21-34) 03/05/19 13:50 - Constitutional Appears: Well - Head Exam Head Exam: ATRAUMATIC, NORMAL INSPECTION, NORMOCEPHALIC - Eye Exam Eye Exam: EOMI, Normal appearance, PERRL Pupil Exam: NORMAL ACCOMODATION, PERRL - ENT Exam ENT Exam: Mucous Membranes Moist, Normal Exam - Neck Exam Neck Exam: Full ROM, Normal Inspection. absent: Lymphadenopathy - Respiratory Exam Respiratory Exam: Clear to Ausculation Bilateral, NORMAL BREATHING PATTERN - Cardiovascular Exam Cardiovascular Exam: REGULAR RHYTHM, +S1, +S2. absent: Murmur - GI/Abdominal Exam GI & Abdominal Exam: Soft, Normal Bowel Sounds. absent: Tenderness - Extremities Exam Extremities Exam: Full ROM, Normal Capillary Refill, Normal Inspection. absent: Joint Swelling, Pedal Edema - Back Exam Back Exam: NORMAL INSPECTION - Neurological Exam Neurological Exam: Alert, Awake, CN II-XII Intact, Normal Gait, Oriented x3 - Psychiatric Exam Psychiatric exam: Normal Affect, Normal Mood - Skin Skin Exam: Dry, Intact, Normal Color, Warm Assessment and Plan (1) Chest pain Assessment & Plan: echo ACS ruled out with serial cardiac enzymes med rx Status: Acute (2) CVA, old, hemiparesis Status: Acute (3) UTI (lower urinary tract infection) Status: Acute (4) Vomiting Status: Acute (5) CAD (coronary artery disease) Assessment & Plan: cont dapt cont bb Status: Chronic (6) Hyperlipemia Status: Chronic
[2019-03-08] MEDS: Insulin Detemir 100 units/ml Vial (Levemir) SC SCH (22:37)
[2019-03-09] MEDS: (Novolog) Insulin Aspart, Recombinant 100 u/ml 10 ml vial SC SCH ×2 (08:29→17:12)
[2019-03-09] MEDS: Enoxaparin 40 mg Syringe SC SCH (10:30)
[2019-03-09] MEDS: Pantoprazole 40 mg EC Tab PO SCH (10:30)
[2019-03-09] MEDS: Metoprolol Succinate 100 mg XL Tab PO SCH (10:30)
--- NOTE | 2019-03-09 14:27 | CP.PCM.PN ---
Subjective - Date & Time of Evaluation Date of Evaluation: 03/09/19 Time of Evaluation: 14:25 - Subjective Subjective: echo reviewed - EF nl famliy because of advanced dementia dont wany any ischemic w/u at this time Objective - Vital Signs/Intake and Output Vital Signs (last 24 hours): Temp Pulse Resp BP Pulse Ox 98.9 F 73 20 148/70 96 03/08/19 23:15 03/08/19 23:15 03/08/19 23:15 03/08/19 23:15 03/08/19 23:15 Intake and Output: 03/09/19 03/09/19 06:59 18:59 Output Total 400 Balance -400 - Medications Medications: Current Medications Amlodipine Besylate (Norvasc) 10 mg PO DAILY [facility] Last Admin: 03/08/19 09:52 Dose: Not Given Aspirin (Aspirin Chewable) 81 mg PO DAILY [facility] Last Admin: 03/09/19 10:30 Dose: 81 mg Clopidogrel Bisulfate (Plavix) 75 mg PO DAILY [facility] Last Admin: 03/08/19 09:46 Dose: 75 mg Docusate Sodium (Colace) 100 mg PO BID [facility] Last Admin: 03/08/19 18:23 Dose: Not Given Enoxaparin Sodium (Lovenox) 40 mg SC DAILY [facility] Last Admin: 03/09/19 10:30 Dose: 40 mg Insulin Aspart (Novolog) 0 unit SC [facility]; Protocol Last Admin: 03/09/19 08:29 Dose: Not Given Insulin Detemir (Levemir) 25 unit SC [facility] Last Admin: 03/08/19 22:37 Dose: 25 units Losartan Potassium (Cozaar) 100 mg PO DAILY [facility] Last Admin: 03/09/19 10:29 Dose: 100 mg Metformin HCl (Glucophage) 500 mg PO B [facility] Last Admin: 03/09/19 08:37 Dose: 500 mg Metoprolol Succinate (Toprol Xl) 100 mg PO DAILY [facility] Last Admin: 03/09/19 10:30 Dose: 100 mg Mirtazapine (Remeron) 7.5 mg PO HS [facility] Last Admin: 03/08/19 22:36 Dose: 7.5 mg Pantoprazole Sodium (Protonix Ec Tab) 40 mg PO DAILY [facility] Last Admin: 03/09/19 10:30 Dose: 40 mg Rosuvastatin Calcium (Crestor) 10 mg PO HS [facility] Last Admin: 03/08/19 22:36 Dose: 10 mg - Labs Labs: 03/05/19 13:50 03/05/19 13:50 PT 13.0 SECONDS (9.7-12.2) H 03/05/19 13:50 INR 1.2 03/05/19 13:50 APTT 28.0 SECONDS (21-34) 03/05/19 13:50 - Constitutional Appears: Well - Head Exam Head Exam: ATRAUMATIC, NORMAL INSPECTION, NORMOCEPHALIC - Eye Exam Eye Exam: EOMI, Normal appearance, PERRL Pupil Exam: NORMAL ACCOMODATION, PERRL - ENT Exam ENT Exam: Mucous Membranes Moist, Normal Exam - Neck Exam Neck Exam: Full ROM, Normal Inspection. absent: Lymphadenopathy - Respiratory Exam Respiratory Exam: Clear to Ausculation Bilateral, NORMAL BREATHING PATTERN - Cardiovascular Exam Cardiovascular Exam: REGULAR RHYTHM, +S1, +S2, Murmur - GI/Abdominal Exam GI & Abdominal Exam: Soft, Normal Bowel Sounds. absent: Tenderness - Extremities Exam Extremities Exam: Full ROM, Normal Capillary Refill, Normal Inspection. absent: Joint Swelling, Pedal Edema - Back Exam Back Exam: NORMAL INSPECTION - Neurological Exam Neurological Exam: Awake, CN II-XII Intact, Oriented x3 - Psychiatric Exam Psychiatric exam: Normal Affect, Normal Mood - Skin Skin Exam: Dry, Intact, Normal Color, Warm Assessment and Plan (1) Chest pain Assessment & Plan: ACS ruled out echo reviewed stable to dc home add ranexa f/u with her director pediatric ( ) Status: Acute (2) CVA, old, hemiparesis Status: Acute (3) UTI (lower urinary tract infection) Status: Acute (4) Vomiting Status: Acute (5) CAD (coronary artery disease) Assessment & Plan: cont dapt cont metoprolol,losartan,statins add ranexa 500mg po bid Status: Chronic (6) Hyperlipemia Assessment & Plan: cont crestor Status: Chronic
--- NOTE | 2019-03-09 16:39 | CARD ---
APPROVED REPORT Date of service: 03/09/2019 EXAM: Two-dimensional and M-mode echocardiogram with Doppler and color Doppler. INDICATION CVA/TIA Chest Pain COPD mitral valve prolapse, coronary stent, pacemaker, RISK FACTORS Hypertension Hyperlipidemia Diabetes 2D DIMENSIONS IVSd1.3 (0.7-1.1cm)LVDd3.8 (3.9-5.9cm) PWd1.1 (0.7-1.1cm)LA Dhadew59 (18-58mL) LVDs1.6 (2.5-4.0cm)FS (%) 57.4 % LVEF (%)70.0 (>50%)LVEF (Hui's)68.75 % M-Mode DIMENSIONS Left Atrium (MM)3.44 (2.5-4.0cm)IVSd0.93 (0.7-1.1cm) Aortic Root3.10 (2.2-3.7cm)LVDd4.52 (4.0-5.6cm) Aortic Cusp Exc.1.37 (1.5-2.0cm)PWd1.04 (0.7-1.1cm) FS (%) 46 %LVDs2.44 (2.0-3.8cm) LVEF (%)72 (>50%) Mitral Valve MV E Vtwhbdcz11.9cm/sMV A Ayjeneas20.9cm/sE/A ratio0.7 TDI Lateral E' Peak V3.12cm/sMedial E' Peak V4.61cm/sE/Lateral E'21.1 E/Medial E'14.3 Tricuspid Valve TR Peak [id number]/sTR Peak [id number] <Conclusion> tds. poor window. la,lv & ra rv size appears normal. mild concnetric lvh with normal lv wall motion & lvef of 70%. lv diastolic dysfunction grade one. moderately elevated la pressures. sclerotic trileaflet aortic valve.normal mitral,tv & pv. mild tr with normal pulmonary systolic pressures of 30 mm of hg. no pericrdial effusion. normal size sclerotic aortic root.
--- NOTE | 2019-03-09 20:26 | CP.PCM.PN ---
Subjective - Date & Time of Evaluation Date of Evaluation: 03/09/19 - Subjective Subjective: patient examined today no nausea no vomitng no diarrhea no fever no dizziness no shortness of breath Objective - Vital Signs/Intake and Output Vital Signs (last 24 hours): Temp Pulse Resp BP Pulse Ox 98.5 F 70 20 121/68 98 03/09/19 15:40 03/09/19 15:40 03/09/19 15:40 03/09/19 15:40 03/09/19 15:40 - Medications Medications: Current Medications Amlodipine Besylate (Norvasc) 10 mg PO DAILY [facility] Last Admin: 03/08/19 09:52 Dose: Not Given Aspirin (Aspirin Chewable) 81 mg PO DAILY [facility] Last Admin: 03/09/19 10:30 Dose: 81 mg Clopidogrel Bisulfate (Plavix) 75 mg PO DAILY [facility] Last Admin: 03/08/19 09:46 Dose: 75 mg Docusate Sodium (Colace) 100 mg PO BID [facility] Last Admin: 03/09/19 18:12 Dose: 100 mg Enoxaparin Sodium (Lovenox) 40 mg SC DAILY [facility] Last Admin: 03/09/19 10:30 Dose: 40 mg Insulin Aspart (Novolog) 0 unit SC [facility]; Protocol Last Admin: 03/09/19 17:12 Dose: Not Given Insulin Detemir (Levemir) 25 unit SC [facility] Last Admin: 03/08/19 22:37 Dose: 25 units Losartan Potassium (Cozaar) 100 mg PO DAILY [facility] Last Admin: 03/09/19 10:29 Dose: 100 mg Metformin HCl (Glucophage) 500 mg PO B [facility] Last Admin: 03/09/19 08:37 Dose: 500 mg Metoprolol Succinate (Toprol Xl) 100 mg PO DAILY [facility] Last Admin: 03/09/19 10:30 Dose: 100 mg Mirtazapine (Remeron) 7.5 mg PO [facility] Last Admin: 03/08/19 22:36 Dose: 7.5 mg Pantoprazole Sodium (Protonix Ec Tab) 40 mg PO DAILY [facility] Last Admin: 03/09/19 10:30 Dose: 40 mg Rosuvastatin Calcium (Crestor) 10 mg PO HS [facility] Last Admin: 03/08/19 22:36 Dose: 10 mg - Labs Labs: 03/05/19 13:50 03/05/19 13:50 PT 13.0 SECONDS (9.7-12.2) H 03/05/19 13:50 INR 1.2 03/05/19 13:50 APTT 28.0 SECONDS (21-34) 03/05/19 13:50 - Constitutional Appears: Well - Head Exam Head Exam: ATRAUMATIC, NORMAL INSPECTION, NORMOCEPHALIC - Eye Exam Eye Exam: EOMI, Normal appearance, PERRL Pupil Exam: NORMAL ACCOMODATION, PERRL - ENT Exam ENT Exam: Mucous Membranes Moist, Normal Exam - Neck Exam Neck Exam: Full ROM, Normal Inspection. absent: Lymphadenopathy - Respiratory Exam Respiratory Exam: Decreased Breath Sounds - Cardiovascular Exam Cardiovascular Exam: REGULAR RHYTHM, +S1, +S2 - GI/Abdominal Exam GI & Abdominal Exam: Diminished Bowel Sounds - Rectal Exam Rectal Exam: Deferred - Neurological Exam Neurological Exam: Oriented x3 Assessment and Plan - Assessment and Plan (Free Text) Plan: labs reviewed vitals reviewed medications reviewed aspirin chewable tab colace cozaar crestor glucophage levemir lovenox norvasc novolog plavix protonix ec tab remeron toprol xl plan discussed with patient moderate complexity of care
[2019-03-09] MEDS: Insulin Detemir 100 units/ml Vial (Levemir) SC SCH (22:13)
[2019-03-10 08:07] LABS: BASO % 0.3 % (0.0-2.0); EOS # 0.1 K/uL (0.0-0.7); EOS % 2.4 % (0.0-4.0); HEMOGLOBIN 10.3 g/dL (11.0-16.0); LYMPH # 1.3 K/uL (1.0-4.3); LYMPH % 30.4 % (20.0-40.0); MEAN CELL VOLUME 81.9 fL (81.0-99.0); MEAN CORPUSCULAR HEMOGLOBIN 27.1 pg (27.0-31.0); MEAN CORPUSCULAR HGB CONC 33.1 g/dL (33.0-37.0); MEAN PLATELET VOLUME 8.9 fL (7.2-11.7); MONO # 0.7 K/uL (0.0-0.8); MONO % 16.2 % (0.0-10.0); NEUT # 2.1 K/uL (1.8-7.0); NEUT % 50.7 % (50.0-75.0); NRBC % 0.1 % (0.0-2.0); RBC 3.82 Mil/uL (3.80-5.20); RED CELL DISTRIBUTION WIDTH 13.9 % (11.5-14.5); WHITE BLOOD COUNT 4.2 K/uL (4.8-10.8)
[2019-03-10] MEDS: (Novolog) Insulin Aspart, Recombinant 100 u/ml 10 ml vial SC SCH ×5 (08:24→21:31)
[2019-03-10 08:40] LABS: BLOOD UREA NITROGEN 32 mg/dL (7-17); CALCIUM 8.8 mg/dl (8.6-10.4); GFR NON-AFRICAN AMERICAN > 60
[2019-03-10] MEDS: Pantoprazole 40 mg EC Tab PO SCH (11:04)
[2019-03-10] MEDS: Enoxaparin 40 mg Syringe SC SCH (11:05)
[2019-03-10] MEDS: Metoprolol Succinate 100 mg XL Tab PO SCH (11:19)
[2019-03-10] MEDS ORDERED: Potassium Chloride 20 mEq ER Tab PO ONE (14:00)
--- NOTE | 2019-03-10 15:09 | CP.PCM.PN ---
Subjective - Date & Time of Evaluation Date of Evaluation: 03/10/19 - Subjective Subjective: patient examined today no nausea no vomitng no fever no dizziness no diarrhea no shortness of breath Objective - Vital Signs/Intake and Output Vital Signs (last 24 hours): Temp Pulse Resp BP Pulse Ox 98.1 F 80 20 129/70 97 03/10/19 07:30 03/10/19 07:30 03/10/19 07:30 03/10/19 07:30 03/10/19 07:30 Intake and Output: 03/10/19 03/10/19 06:59 18:59 Output Total 250 Balance -250 - Medications Medications: Current Medications Amlodipine Besylate (Norvasc) 10 mg PO DAILY [facility] Last Admin: 03/10/19 11:10 Dose: 10 mg Aspirin (Aspirin Chewable) 81 mg PO DAILY [facility] Last Admin: 03/10/19 11:05 Dose: 81 mg Clopidogrel Bisulfate (Plavix) 75 mg PO DAILY [facility] Last Admin: 03/10/19 11:05 Dose: 75 mg Docusate Sodium (Colace) 100 mg PO BID [facility] Last Admin: 03/10/19 11:05 Dose: 100 mg Enoxaparin Sodium (Lovenox) 40 mg SC DAILY [facility] Last Admin: 03/10/19 11:05 Dose: 40 mg Insulin Aspart (Novolog) 0 unit SC [facility]; Protocol Last Admin: 03/10/19 12:45 Dose: 1 units Insulin Detemir (Levemir) 25 unit SC [facility] Last Admin: 03/09/19 22:13 Dose: 25 units Losartan Potassium (Cozaar) 100 mg PO DAILY [facility] Last Admin: 03/10/19 11:04 Dose: 100 mg Metformin HCl (Glucophage) 500 mg PO B [facility] Last Admin: 03/10/19 08:28 Dose: 500 mg Metoprolol Succinate (Toprol Xl) 100 mg PO DAILY [facility] Last Admin: 03/10/19 11:19 Dose: 100 mg Mirtazapine (Remeron) 7.5 mg PO [facility] Last Admin: 03/09/19 22:13 Dose: 7.5 mg Pantoprazole Sodium (Protonix Ec Tab) 40 mg PO DAILY [facility] Last Admin: 03/10/19 11:04 Dose: 40 mg Rosuvastatin Calcium (Crestor) 10 mg PO HS [facility] Last Admin: 03/09/19 22:13 Dose: 10 mg - Labs Labs: 03/10/19 07:55 03/10/19 07:55 PT 13.0 SECONDS (9.7-12.2) H 03/05/19 13:50 INR 1.2 03/05/19 13:50 APTT 28.0 SECONDS (21-34) 03/05/19 13:50 Assessment and Plan - Assessment and Plan (Free Text) Plan: aspirin chewable tab colace cozaar crestor glucophage levemir lovenox norvasc novolog plavix protonix ec tab remeron toprol xl medications reviewed labs reviewed vitals reviewed plan discussed with patient moderate complexity of care
[2019-03-10] MEDS: Insulin Detemir 100 units/ml Vial (Levemir) SC SCH (21:27)
[2019-03-10] MEDS ORDERED: Potassium Chloride 20 mEq ER Tab PO STA (22:28)
[2019-03-11 02:12] VITALS: RESP 20
[2019-03-11] MEDS: (Novolog) Insulin Aspart, Recombinant 100 u/ml 10 ml vial SC SCH ×2 (07:48→11:42)
[2019-03-11 08:46] VITALS: BP 122/70; PULSE 80; TEMP 99; O2SAT 20
[2019-03-11] MEDS: Pantoprazole 40 mg EC Tab PO SCH (09:21)
[2019-03-11] MEDS: Metoprolol Succinate 100 mg XL Tab PO SCH (09:21)
[2019-03-11] MEDS: Enoxaparin 40 mg Syringe SC SCH (09:22)
--- NOTE | 2019-03-11 12:29 | CP.PCM.PN ---
Subjective - Date & Time of Evaluation Date of Evaluation: 03/11/19 Time of Evaluation: 11:00 - Subjective Subjective: Patient seen today awake, alert, confused, comfortable in bed, NAD vss and lab reviewed- K 3. 5 replaced yesterday No overnight events Objective - Vital Signs/Intake and Output Vital Signs (last 24 hours): Temp Pulse Resp BP Pulse Ox 99.0 F 80 20 122/70 20 L 03/11/19 07:00 03/11/19 07:00 03/11/19 07:00 03/11/19 07:00 03/11/19 07:00 Intake and Output: 03/11/19 03/11/19 06:59 18:59 Output Total 100 Balance -100 - Medications Medications: Current Medications Amlodipine Besylate (Norvasc) 10 mg PO DAILY [facility] Last Admin: 03/11/19 09:21 Dose: 10 mg Aspirin (Aspirin Chewable) 81 mg PO DAILY [facility] Last Admin: 03/11/19 09:21 Dose: 81 mg Clopidogrel Bisulfate (Plavix) 75 mg PO DAILY [facility] Last Admin: 03/11/19 09:21 Dose: 75 mg Docusate Sodium (Colace) 100 mg PO BID [facility] Last Admin: 03/11/19 09:22 Dose: 100 mg Enoxaparin Sodium (Lovenox) 40 mg SC DAILY [facility] Last Admin: 03/11/19 09:22 Dose: 40 mg Insulin Aspart (Novolog) 0 unit SC [facility]; Protocol Last Admin: 03/11/19 11:42 Dose: Not Given Insulin Detemir (Levemir) 25 unit SC [facility] Last Admin: 03/10/19 21:27 Dose: 25 units Losartan Potassium (Cozaar) 100 mg PO DAILY [facility] Last Admin: 03/11/19 09:22 Dose: 100 mg Metformin HCl (Glucophage) 500 mg PO B [facility] Last Admin: 03/11/19 07:46 Dose: Not Given Metoprolol Succinate (Toprol Xl) 100 mg PO DAILY [facility] Last Admin: 03/11/19 09:21 Dose: 100 mg Mirtazapine (Remeron) 7.5 mg PO HS [facility] Last Admin: 03/10/19 21:19 Dose: 7.5 mg Pantoprazole Sodium (Protonix Ec Tab) 40 mg PO DAILY [facility] Last Admin: 05/03/19 09:21 Dose: 40 mg Rosuvastatin Calcium (Crestor) 10 mg PO HS [facility] Last Admin: 03/10/19 21:19 Dose: 10 mg - Labs Labs: 03/10/19 07:55 03/10/19 07:55 PT 13.0 SECONDS (9.7-12.2) H 03/05/19 13:50 INR 1.2 03/05/19 13:50 APTT 28.0 SECONDS (21-34) 03/05/19 13:50
--- NOTE | 2019-03-12 18:56 | CP.PCM.DIS ---
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 Referral Routine Comment: routine Physician Instructions: referral Reason For Exam: Dx Chestutin Hospital Course - Lab Results Lab Results: Micro Results 03/05/19 15:27 Urine Random Urine Culture - Final No Growth (<1,000 CFU/ML) Most Recent Lab Values WBC 4.2 K/uL (4.8-10.8) L 03/10/19 07:55 RBC 3.82 Mil/uL (3.80-5.20) 03/10/19 07:55 Hgb 10.3 g/dL (11.0-16.0) L 03/10/19 07:55 Hct 31.3 % (34.0-47.0) L 03/10/19 07:55 MCV 81.9 fL (81.0-99.0) 03/10/19 07:55 MCH 27.1 pg (27.0-31.0) 03/10/19 07:55 MCHC 33.1 g/dL (33.0-37.0) 03/10/19 07:55 RDW 13.9 % (11.5-14.5) 03/10/19 07:55 Plt Count 277 K/uL (130-400) 03/10/19 07:55 MPV 8.9 fL (7.2-11.7) 03/10/19 07:55 Neut % (Auto) 50.7 % (50.0-75.0) 03/10/19 07:55 Lymph % (Auto) 30.4 % (20.0-40.0) 03/10/19 07:55 [place] % (Auto) 16.2 % (0.0-10.0) H 03/10/19 07:55 Eos % (Auto) 2.4 % (0.0-4.0) 03/10/19 07:55 Baso % (Auto) 0.3 % (0.0-2.0) 03/10/19 07:55 Neut # (Auto) 2.1 K/uL (1.8-7.0) 03/10/19 07:55 Lymph # (Auto) 1.3 K/uL (1.0-4.3) 03/10/19 07:55 [place] # (Auto) 0.7 K/uL (0.0-0.8) 03/10/19 07:55 Eos # (Auto) 0.1 K/uL (0.0-0.7) 03/10/19 07:55 Baso # (Auto) 0.0 K/uL (0.0-0.2) 03/10/19 07:55 PT 13.0 SECONDS (9.7-12.2) H 03/05/19 13:50 INR 1.2 03/05/19 13:50 APTT 28.0 SECONDS (21-34) 03/05/19 13:50 Sodium 141 mmol/L (132-148) 03/10/19 07:55 Potassium 3.5 mmol/L (3.6-5.2) L 03/10/19 07:55 Chloride 111 mmol/L (98-107) H 03/10/19 07:55 Carbon Dioxide 20 mmol/L (22-30) L 03/10/19 07:55 Anion Gap 14 (10-20) 03/10/19 07:55 BUN 32 mg/dL (7-17) H 03/10/19 07:55 Creatinine 0.6 mg/dL (0.7-1.2) L 03/10/19 07:55 Est GFR ( Amer) > 60 03/10/19 07:55 Est GFR (Non-Af Amer) > 60 03/10/19 07:55 POC Glucose (mg/dL) 129 mg/dL (65-110) H 03/11/19 11:16 Random Glucose 83 mg/dL (65-105) D 03/10/19 07:55 Calcium 8.8 mg/dl (8.6-10.4) 03/10/19 07:55 Phosphorus 4.0 mg/dL (2.5-4.5) 03/05/19 13:50 Magnesium 2.1 mg/dL (1.6-2.3) 03/05/19 13:50 Total Bilirubin 0.4 mg/dL (0.2-1.3) 03/05/19 13:50 AST 25 U/L (14-36) 03/05/19 13:50 ALT 31 U/L (9-52) 03/05/19 13:50 Alkaline Phosphatase 73 U/L (38-126) 03/05/19 13:50 Total Creatine Kinase 27 U/L (30-135) L 03/05/19 19:38 CK-MB (Mass) 1.43 ng/mL (0.0-3.38) 03/05/19 19:38 Troponin I < 0.0120 ng/mL (0.00-0.120) 03/05/19 19:38 Total Protein 7.0 g/dL (6.3-8.3) 03/05/19 13:50 Albumin 4.2 g/dL (3.5-5.0) 03/05/19 13:50 Globulin 2.8 gm/dL (2.2-3.9) 03/05/19 13:50 Albumin/Globulin Ratio 1.5 (1.0-2.1) 03/05/19 13:50 Lipase < 10 U/L (23-300) L 03/05/19 13:50 Urine Color Yellow (YELLOW) 03/05/19 15:27 Urine Clarity Hazy (Clear) 03/05/19 15:27 Urine pH 5.0 (5.0-8.0) 03/05/19 15:27 Ur Specific [place] 1.023 (1.003-1.030) 03/05/19 15:27 Urine Protein Negative mg/dL (NEGATIVE) 03/05/19 15:27 Urine Glucose (UA) Normal mg/dL (Normal) 03/05/19 15:27 Urine Ketones Negative mg/dL (NEGATIVE) 03/05/19 15:27 Urine Blood Negative (NEGATIVE) 03/05/19 15:27 Urine Nitrate Negative (NEGATIVE) 03/05/19 15:27 Urine Bilirubin Negative (NEGATIVE) 03/05/19 15:27 Urine Urobilinogen 2.0 mg/dL (0.2-1.0) H 03/05/19 15:27 Ur Leukocyte Esterase Neg Kit/uL (Negative) 03/05/19 15:27 Urine WBC (Auto) 2 /hpf (0-5) 03/05/19 15:27 Urine RBC (Auto) 2 /hpf (0-3) 03/05/19 15:27 C. difficile Ag & Toxin Negative (NEGATIVE) 03/10/19 23:06 Influenza Typ A,B (EIA) Negative for flu a/b (NEGATIVE) 03/05/19 13:50 Discharge Exam - Head Exam Head Exam: ATRAUMATIC, NORMAL INSPECTION, NORMOCEPHALIC Discharge Plan - Discharge Medications Prescriptions: Ranolazine [Ranexa] 500 mg PO BID #60 ter - Follow Up Plan Condition: FAIR Disposition: REHAB FACILITY/REHAB UNIT Instructions: Heart Healthy Diet, Diabetes Exchange Diet, Diabetes Diet , Chest Pain (DC) Additional Instructions: Please admit patient under Dr. Gibbs service Please Call Dr. Gibbs upon patient arrival to the facility Please continue medication as per ,med. rec. All other orderes as per Dr. Gibbs at [facility]
== END 2019-03-11 13:08 | DRG 313 ==
LOC: C.ER 12:15 → C.9E 16:43 → C.6T 17:31 → OBSVTOIN 03-08 16:06 → C.6T 03-10 14:23
PROVIDERS: ADMIT Internal Medicine Nephrology; ATTEND Internal Medicine Nephrology
DX: R07.89 Other chest pain (principal); N39.0 Urinary tract infection, site not specified; I69.254 Hemiplegia and hemiparesis following other nontraumatic intracranial hemorrhage affecting left non-dominant side; E78.5 Hyperlipidemia, unspecified; F02.80 Dementia in other diseases classified elsewhere, unspecified severity, without behavioral disturbance, psychotic disturbance, mood disturbance, and anxiety; G30.9 Alzheimer's disease, unspecified; I10 Essential (primary) hypertension; I25.10 Atherosclerotic heart disease of native coronary artery without angina pectoris; I34.1 Nonrheumatic mitral (valve) prolapse; E11.59 Type 2 diabetes mellitus with other circulatory complications; J44.9 Chronic obstructive pulmonary disease, unspecified; Z95.0 Presence of cardiac pacemaker; Z95.5 Presence of coronary angioplasty implant and graft; K21.9 Gastro-esophageal reflux disease without esophagitis